=== PATIENT | male | born 1960 | race Caucasian/White ===

== ENCOUNTER 2018-04-21 15:21 | Outpatient (CLI) | payer BC, SELFPAY ==
[2018-04-21 15:41] LABS: Abs Immature Grans 0.03 k/cumm (0.0-0.09); Absolute Basophil Count 0.02 k/cumm (0.0-0.2); Absolute Eosinophil Count 0.32 k/cumm (0.0-0.7); Absolute Lymphocyte Count 1.62 k/cumm (1.2-3.4); Absolute Monocyte Count 0.58 k/cumm (0.11-0.7); Absolute Neutrophil Count 4.61 k/cumm (1.2-6.7); Basophils % 0.3; Eosinophils % 4.5; HCT 43.6 % (40.0-50.0); HGB 15.7 g/dL (13.5-17.5); Immature Grans % 0.4; Lymphocytes % 22.6; Mean Corpuscular Hemoglobin 34.3 pg (27.0-33.0); Mean Corpuscular Volume 95.2 fL (80-95); Monocytes % 8.1; Neutrophils % 64.1; Platelet Count 233 x1000/uL (130-400); RBC 4.58 m/cumm (4.50-6.00); RBC Distribution Width 13.5 % (11.8-14.1); White Blood Cell Count 7.18 k/cumm (4.4-10.8)
[2018-04-21 17:54] LABS: ALT 33 U/L (12-78); AST 19 U/L (15-37); Albumin 3.8 g/dL (3.4-5.0); Alkaline Phosphatase 110 U/L (46-116); Anion Gap 11.2 mmol/L (3-11); BUN 16 mg/dL (7-18); Bilirubin, Total 0.4 mg/dL (0.2-1.0); CO2 23.8 mmol/L (21.0-32.0); CREATININE 1.29 mg/dL (0.70-1.30); Calcium 8.6 mg/dL (8.5-10.1); Chloride 104 mmol/L (98-107); Cholesterol 167 mg/dL (50-200); Estimated GFR 57.21 (mL/min/1.73m2); Glucose 128 mg/dL (70-100); HDL Cholesterol 28 mg/dL (40-60); LDL CHOLESTEROL 116 mg/dL (<100); Sodium 139 mmol/L (136-145); Total Protein 7.1 g/dL (6.4-8.2); Triglyceride 260 mg/dL (30-150)
[2018-04-21 18:30] LABS: NT-proBNP 13 pg/mL
== END 2018-04-21 15:41 ==
PROVIDERS: PCP Family Medicine; Visit Provider Family Medicine
DX: R06.09 Other forms of dyspnea (principal); R60.9 Edema, unspecified
CPT/HCPCS: 36415; 80053; 80061; 83721; 83880; 85025

== ENCOUNTER 2018-05-12 15:30 | Outpatient (CLI) | payer BC, SELFPAY ==
--- NOTE | 2018-05-12 16:08 | DI.RAD_ITS ---
SYMPTOMS/DIAGNOSIS: COUGH CHRONIC, R05 PA AND LATERAL CHEST: There are no priors comparison exams. The heart size is normal. The aorta is mildly tortuous. The lungs appear clear. No infiltrate or effusion is seen. There is no evidence of interstitial or emphysematous changes. Fusion hardware is seen in the lower cervical spine. IMPRESSION: No acute abnormality.
== END 2018-05-12 15:50 ==
PROVIDERS: PCP Family Medicine; Visit Provider Family Medicine
DX: R05 Cough (principal)
CPT/HCPCS: 71046

== ENCOUNTER 2018-10-21 08:40 | Outpatient (REF) | payer BC, SELFPAY ==
[2018-10-21 22:27] LABS: Anion Gap 11.1 mmol/L (3-11); BUN 18 mg/dL (7-18); CO2 23.9 mmol/L (21.0-32.0); CREATININE 1.13 mg/dL (0.70-1.30); Calcium 8.5 mg/dL (8.5-10.1); Calculated LDL 98 mg/dL; Chloride 106 mmol/L (98-107); Cholesterol 150 mg/dL (50-200); Glucose 123 mg/dL (70-100); HDL Cholesterol 28 mg/dL (40-60); Potassium 4.1 mmol/L (3.5-5.1); Sodium 141 mmol/L (136-145); Triglyceride 121 mg/dL (30-150)
== END 2018-10-21 09:00 ==
LOC: NCHCN 08:40
PROVIDERS: PCP Family Medicine; Visit Provider Family Medicine
DX: R73.09 Other abnormal glucose (principal); E78.6 Lipoprotein deficiency; E78.1 Pure hyperglyceridemia; E88.81 Metabolic syndrome and other insulin resistance
CPT/HCPCS: 80048; 80061; 83721; 83036

== ENCOUNTER 2019-09-28 00:21 | Outpatient (CLI) | payer OTHER, SELFPAY ==
--- NOTE | 2019-09-28 | DI.NM_ITS ---
APPROVED REPORT Exam: Pharmacologic Patient Location: Out-Patient Room/Bed: Stress Nurse: Zina Lewis RN BMI: 34.58 Baseline Rhythm: Sinus Rhythm Comment: Abnormal R wave transition, early transition. Indications: CARD. Diastolic dysfunction. Medical History Medical History: Smoking Allergies: Atropine Cardiac Risk Factors: FHX of CAD. Pre-diabetes. Pipe smoker. Pretest Chest Pain Characteristics: Dyspnea Exercise History: Indeterminate Lung Sounds: Clear to auscultation Heart Sounds: Regular Stress Test Details Test: Pharmacologic stress testing performed using 0.4 mg of regadenoson per 5 mL given IV over 10 s econds. Nuclear Acquisition: Rest Tc-99m/Stress Tc-99m 1 day Rest Isotope: Tc-99m Sestamibi. Dose: 13.3 Date: 09/28/2019 Injection Time: 0930 Stress Isotope: Tc-99m Sestamibi. Dose: 34.1 Date: 09/28/2019 Injection Time: 1050 HR Resting HR Supine: 68 bpm Max Heart Rate (APMHR): 160 bpm Target HR (85% APMHR): 136 bpm Recovery HR: 81 bpm HR response to stress: Normal HR response to stress BP Resting BP Supine: 132/80 mmHg Max BP: 148/78 mmHg Recovery BP: 140/80 mmHg BP response to stress: Normal blood pressure response to stress. ECG Resting ECG: Sinus Rhythm Stress ECG: Sinus Rhythm ST Change: No significant ST segment changes Arrhythmia: None Recovery ECG: Sinus Rhythm Recovery ST Change: No significant ST segment changes Recovery Arrhythmia: None Clinical Stress Symptoms: No significant symptoms post Lexiscan injection. Stress ECG Conclusion 1. This is a pharmacological stress test. 2. EKG portion of this exam is nondiagnostic. Stress Test Summary STAGE HR BP Symptoms NOTES Supine 68 132/80 1 min post Lexiscan injection 91 138/82 3 min post Lexiscan injection 78 148/78 6 min post Lexiscan injection 81 140/80 MPI Conclusion Ejection fraction was 52% with stress. There were no wall motion abnormalities. There is no evidence of ischemia on the imaging portion of this exam. This represents a normal SPECT stress test. Radiologist Interpretation Radiologist agrees with Wardrobe Assistant's Interpretation. Radiologist Interpretation by: Victorino Falcon MD Interpretation Date/Time: 09/30/2019 09:38:25
[2019-09-28] MEDS: Regadenoson 0.4 MG/5 ML SYR IVP (10:48)
== END 2019-09-28 00:41 ==
PROVIDERS: PCP Family Medicine; Visit Provider Family Medicine
DX: R06.09 Other forms of dyspnea (principal); I51.9 Heart disease, unspecified; F17.290 Nicotine dependence, other tobacco product, uncomplicated; E78.1 Pure hyperglyceridemia; Z82.49 Family history of ischemic heart disease and other diseases of the circulatory system
CPT/HCPCS: 78452; 93017; J2785

== ENCOUNTER 2019-10-05 11:30 | Outpatient (CLI) | payer OTHER, SELFPAY ==
[2019-10-06 01:50] LABS: COVID-19 RT-PCR UVMMC Result Negative (Negative)
== END 2019-10-05 11:50 ==
PROVIDERS: PCP Family Medicine; Visit Provider Family Medicine
DX: Z11.59 Encounter for screening for other viral diseases (principal)
CPT/HCPCS: U0003

== ENCOUNTER 2019-10-07 02:34 | Outpatient (CLI) | payer OTHER, SELFPAY ==
--- NOTE | 2019-10-11 08:49 | W.PFT ---
Date of service: 10/07/19 Time of Service: 03:09 Pulmonary Function Test Result Interpretation Spirometry: Spirometry shows mild obstructive airways disease with significant bronchodilator response Lung Volumes: Lung volumes show no evidence of restriction Diffusion Capacity: Diffusion capacity is mildly reduced which is normal when corrected to alveolar volume Airway Pressure: Airways resistance is normal Impression Mild obstructive airways disease with significant bronchodilator response, this is associated with mild diffusion defect clinical correlation recommended Clinical Correlation therefore is recommended.
== END 2019-10-07 02:54 ==
PROVIDERS: PCP Family Medicine; Visit Provider Family Medicine
DX: R06.09 Other forms of dyspnea (principal); F17.290 Nicotine dependence, other tobacco product, uncomplicated
CPT/HCPCS: 94060; 94726; 94729

== ENCOUNTER 2019-11-10 02:58 | Outpatient (CLI) | payer OTHER, SELFPAY ==
--- NOTE | 2019-11-10 | DI.RAD_ITS ---
EXAM: XR CHEST 2V PA LATERAL CLINICAL HISTORY: ABNL PFT'SR94.2,MILD COPD,J44.9 TECHNIQUE: COMPARISON: CR XR CHEST 2V PA LATERAL from 05/12/2018 FINDINGS: There is a probable prominent epicardial fat pad on the right, no change in appearance from May 12, 2018. The lungs are clear. No pleural effusion. Cardiac size within normal limits. IMPRESSION: No evidence of acute process.
== END 2019-11-10 03:18 ==
PROVIDERS: PCP Family Medicine; Visit Provider Family Medicine
DX: R94.2 Abnormal results of pulmonary function studies (principal); J44.9 Chronic obstructive pulmonary disease, unspecified
CPT/HCPCS: 71046

== ENCOUNTER 2020-01-21 07:43 | Day surgery (SDC) | payer OTHER, SELFPAY ==
[2020-01-21 08:19] VITALS: BP 136/85; PULSE 70; RESP 20; TEMP 36.5; O2SAT 97
[2020-01-21] MEDS: Lactated Ringers 1,000 ML 80 ML IV (08:45)
--- NOTE | 2020-01-21 09:05 | PDOC.DSDIS_ITS ---
Discharge Plan Disposition Patient Disposition: HOME Condition: Good Discharge Details Reason For Visit: Colonoscopy Attending Provider: Sara Greer Primary Care Provider: Margareth Odell Home Meds and New Rx's Prescriptions: Continued vardenafil 5 mg tablet 5 mg PO PRN RF: 0 Discharge Instructions Additional Instructions: Findings: One small polyp was removed. My office will send a letter with biop sy results. Follow up: If the biopsy shows an adenomatous polyp, plan for a colonoscopy in 5 years. Please call if you develop: fevers >101.5 Nausea or Vomiting Abdominal pain that is not transient DAY SURGERY UNIT POST COLONOSCOPY INSTRUCTIONS 1. Because there will be medication in your system for the next 24 hours, you may feel a little sleepy. Your coordination will be affected. Therefore: a. Do not drive or operate dangerous equipment for 24 hours. b. Do not drink alcohol beverages for 24 hours (not even beer). c. Plan to go home and rest for the day. 2. Generally there are no restrictions on your activity after a day or so has gone by, but you may feel a bit fatigued for a few days. 3 After you arrive home you may have a light meal and return to a normal diet as you can tolerate it without feeling sick to your stomach. 4. After surgery, you may feel pain or discomfort. This should be only ritchie sient, but if it persists please contact your doctor. 5. If there are any questions regarding the findings of your procedure, please feel free to contact your doctor. 6. If you are unable to contact your doctor with a problem, contact the hospital at [phone]. 7. Continue all your regular medications unless directed otherwise. I understand the above instructions and have no questions. Signature of Patient or Responsible Adult Escort Date/Time Name of Responsible Adult Escort Signature of Nurse Date/Time Activity:: Activity as Tolerated Diet:: As Tolerated Discharge Orders Discharge Orders: Discharge Order (Routine); Ordered 01/21/20 Ordered By: Sara Greer DS: Diagnosis Discharge Diagnosis (1) Colon polyp: Status: Acute
--- NOTE | 2020-01-21 09:05 | W.COLOREPORT ---
Date of service: 01/21/20 Time of Service: 09:59 Colonoscopy Report Date of procedure: 01/21/20 Pre-op diagnosis general: Screening Post-op diagnosis procedure note: other (Colon polyp) Procedure: Colonoscopy with cold forceps polypectomy Surgeon: Sara Greer Anesthesia proc note operative: MAC Indications: This 59 year old man presents for screening colonoscopy. His prior in 2009 showed a sigmoid polyp - pathology not available. He has no symptoms or FH colon cancer. Procedure Description: The patient was placed in the left Stanford position. Propofol was titrated to sedation. Digital rectal examination revealed no abnormalities. The scope was advanced to the cecum without difficulty. The ileocecal valve and appendiceal orifice were clearly identified. The prep was good. The scope was slowly withdrawn over the course of greater than 6 minutes with no abnormalities seen in the ascending, transverse colon. In the descending colon an 8mm polyp was removed with the cold forceps. The sigmoid colon and rectum were normal including on retroflexed view. The patient tolerated the procedure well and was stable to recovery. Plan for colonoscopy in 5 years or sooner if the polyp is adenomatous.
--- NOTE | 2020-01-21 09:32 | BOWEL_PTH ---
PATIENT: Jef Pearson LOC: [facility] U#:[id number] AGE/SX: 59/M ROOM: RE01/21/[address]: Sara Greer MD : 1960 BED: DIS: 01/21/2020 SPEC #: [id number] RECD: 01/21/20 11:08 STATUS: RAO REQ #: [id number] JJ: 01/21/20 09:[address]: Sara Greer DEPT: Surgical Specimen RECD BY: Saskia Cheung ENTERED: 01/21/20 11:09 SP TYPE: Bowel OTHR DR: Margareth Odell Tissues: 1 - BIOPSY BOWEL Procedures: GROSS AND MICRO LEVEL 4 Comments: [id number]
[2020-01-21 10:19] VITALS: BP 132/92; PULSE 74; RESP 18; TEMP 36.3; O2SAT 97
== END 2020-01-21 10:40 | disposition home or self-care (01) ==
PROVIDERS: PCP Family Medicine; Visit Provider Surgery
PROC: 0DJD8ZZ Inspection of Lower Intestinal Tract, Via Natural or Artificial Opening Endoscopic (ICD-10-PCS; CPT 45378; principal; 2020-01-21 09:15)
DX: Z12.11 Encounter for screening for malignant neoplasm of colon (principal); K63.5 Polyp of colon; R73.03 Prediabetes
CPT/HCPCS: 45380; 88305; J2001

== ENCOUNTER 2020-04-27 05:04 | Outpatient (CLI) | payer OTHER, SELFPAY ==
[2020-04-27 09:02] LABS: Hemoglobin A1C 6.1 % (<5.7)
[2020-04-27 10:05] LABS: ALT 38 U/L (16-63); AST 24 U/L (15-37); Albumin 3.9 g/dL (3.4-5.0); Alkaline Phosphatase 81 U/L (46-116); Anion Gap 7.4 mmol/L (3-11); BUN 16 mg/dL (7-18); Bilirubin, Total 0.7 mg/dL (0.2-1.0); CO2 25.6 mmol/L (21.0-32.0); CREATININE 1.25 mg/dL (0.70-1.30); Calcium 8.5 mg/dL (8.5-10.1); Calculated LDL 100 mg/dL (<100); Chloride 105 mmol/L (98-107); Cholesterol 158 mg/dL (<200); Estimated GFR 58.92 (mL/min/1.73m2); Glucose 123 mg/dL (74-106); HDL Cholesterol 33 mg/dL (40-60); Potassium 4.4 mmol/L (3.5-5.1); Sodium 138 mmol/L (136-145); Triglyceride 127 mg/dL (<150)
[2020-04-27 10:15] LABS: Vitamin D 25 Total 25.7 ng/ml (30-100)
== END 2020-04-27 05:24 ==
PROVIDERS: PCP Family Medicine; Visit Provider Family Medicine
DX: E66.9 Obesity, unspecified (principal); E88.81 Metabolic syndrome and other insulin resistance; R73.03 Prediabetes; E78.1 Pure hyperglyceridemia; E78.6 Lipoprotein deficiency; Z00.00 Encounter for general adult medical examination without abnormal findings
CPT/HCPCS: 36415; 80053; 80061; 82306; 83036

== ENCOUNTER 2021-04-19 18:39 | Outpatient (REF) | payer BC, SELFPAY ==
[2021-04-19 22:21] LABS: ALT 41 U/L (16-63); AST 20 U/L (15-37); Albumin 3.8 g/dL (3.4-5.0); Alkaline Phosphatase 107 U/L (46-116); Anion Gap 8.3 mmol/L (3-11); BUN 17 mg/dL (7-18); Bilirubin, Total 0.4 mg/dL (0.2-1.0); CO2 25.7 mmol/L (21.0-32.0); CREATININE 1.3 mg/dL (0.70-1.30); Calcium 8.7 mg/dL (8.5-10.1); Calculated LDL 88 mg/dL (<100); Chloride 104 mmol/L (98-107); Cholesterol 174 mg/dL (<200); Estimated GFR 56.12 (mL/min/1.73m2); Glucose 145 mg/dL (74-106); HDL Cholesterol 31 mg/dL (40-60); Sodium 138 mmol/L (136-145); Total Protein 6.7 g/dL (6.4-8.2); Triglyceride 276 mg/dL (<150)
[2021-04-19 23:13] LABS: Vitamin D 25 Total 23.2 ng/mL (30-100)
== END 2021-04-19 18:40 | disposition home or self-care (01) ==
LOC: NCHCN 18:39
PROVIDERS: PCP Family Medicine; Visit Provider Family Medicine
DX: R73.03 Prediabetes (principal); E66.9 Obesity, unspecified; I51.9 Heart disease, unspecified; E78.6 Lipoprotein deficiency; E55.9 Vitamin D deficiency, unspecified
CPT/HCPCS: 80053; 80061; 82306; 83036

== ENCOUNTER 2022-01-08 10:02 | Outpatient (CLI) | payer BC, SELFPAY ==
--- NOTE | 2022-01-08 09:45 | DI.RAD_ITS ---
Exam(s) XR SHOULDER RT COMPLETE 2+V EXAM: XR SHOULDER RT COMPLETE 2+V CLINICAL HISTORY: shoulder pain. TECHNIQUE: 2D digital imaging was performed. COMPARISON: CR XR SHOULDER LT COMPLETE 2+V from 01/08/2022 FINDINGS: Two views: No evidence fracture or dislocation. However, there is a by 2 millimeter calcific density and soft t issues immediately above the greater tuberosity consistent with calcific rotator cuff tendinitis. Th ere is also degenerative narrowing the glenohumeral joint and opposing osteophytes on the inferior ar ticular surfaces of the humeral head and osseous glenoid. There are mild degenerative changes in the AC joint. Bone density normal. No osseous lesions. IMPRESSION: 1. Calcific rotator cuff tendinitis. 2. Moderate degenerative changes in the glenohumeral joint. Also some degenerative change in the AC joint. DATA REPOSITORY: RADIATION DOSE DELIVERED:
--- NOTE | 2022-01-08 09:45 | DI.RAD_ITS ---
Exam(s) XR SHOULDER LT COMPLETE 2+V EXAM: XR SHOULDER LT COMPLETE 2+V CLINICAL HISTORY: shoulder pain. TECHNIQUE: 2D digital imaging was performed. COMPARISON: No exams were available for comparison FINDINGS: Two views: No evidence of fracture or dislocation. No obvious to degenerative changes in the glenohumeral and A C joints. No soft tissue calcifications. Bone density normal. No osseous lesions. IMPRESSION: No significant osseous findings. DATA REPOSITORY: RADIATION DOSE DELIVERED:
== END 2022-01-08 10:03 | disposition home or self-care (01) ==
LOC: DIORS 10:03
PROVIDERS: PCP Family Medicine; Referring Provider Family Medicine; Visit Provider Student in an Organized Health Care Education/Training Program
DX: M25.511 Pain in right shoulder (principal); M25.512 Pain in left shoulder; M75.31 Calcific tendinitis of right shoulder; M19.011 Primary osteoarthritis, right shoulder
CPT/HCPCS: 73030

== ENCOUNTER 2022-02-04 01:59 | Outpatient (CLI) | payer BC, SELFPAY ==
--- NOTE | 2022-02-04 07:45 | DI.MRI_ITS ---
Exam(s) MR UPPER JOINT RT WO EXAM: MR UPPER JOINT RT WO CLINICAL HISTORY: R SHOULDER PAIN.rt rotator cuff tear, m75.101. TECHNIQUE: Multiplanar multisequence MRI was performed. COMPARISON: Plain films 08 January 2022 FINDINGS: BONES: There is no fracture or contusion pattern. JOINTS:The acromioclavicular joint is normal. The glenohumeral joint shows no effusion. There are de generative changes of glenohumeral joint. TENDONS: Supraspinatus: A minimal increased signal anteriorly in distally. Calcification near greater tuberos ity seen on plain film barely visible on MRI. Infraspinatus: Unremarkable. Subscapularis: Unremarkable. Teres Minor: Unremarkable. Biceps and Spencer: Unremarkable. MUSCLES: Unremarkable. GLENOID LABRUM: Small cysts inferior and posterior labrum. No gross labral tear. SOFT TISSUES: Unremarkable. OTHER: Subacromial and subdeltoid bursae show no fluid. . IMPRESSION: Calcific tendinosis supraspinatus. Degenerative changes of the glenohumeral joint. DATA REPOSITORY:
== END 2022-02-04 02:19 ==
LOC: DI 02:00
PROVIDERS: PCP Family Medicine; Visit Provider Student in an Organized Health Care Education/Training Program
DX: M25.511 Pain in right shoulder (principal); M75.101 Unspecified rotator cuff tear or rupture of right shoulder, not specified as traumatic; M75.31 Calcific tendinitis of right shoulder; M19.011 Primary osteoarthritis, right shoulder
CPT/HCPCS: 73221

== ENCOUNTER 2022-06-27 14:53 | Outpatient (REF) | payer BC, SELFPAY ==
[2022-06-27 15:20] LABS: Hemoglobin A1C 6.3 % (<5.7)
[2022-06-27 15:24] LABS: Anion Gap 7.6 mmol/L (3-11); BUN 17 mg/dL (7-18); CO2 26.4 mmol/L (21.0-32.0); CREATININE 1.3 mg/dL (0.70-1.30); Calcium 8.9 mg/dL (8.5-10.1); Chloride 106 mmol/L (98-107); Estimated GFR 61.73 (mL/min/1.73m2); Glucose 125 mg/dL (74-106); Potassium 4.1 mmol/L (3.5-5.1); Sodium 140 mmol/L (136-145)
== END 2022-06-27 14:54 | disposition home or self-care (01) ==
LOC: NCHCN 14:53
PROVIDERS: PCP Family Medicine; Visit Provider Nurse Practitioner Family
DX: R39.9 Unspecified symptoms and signs involving the genitourinary system (principal); R73.03 Prediabetes
CPT/HCPCS: 80048; 84153; 83036

== ENCOUNTER 2022-07-12 11:50 | Outpatient (REF) | payer BC, SELFPAY ==
[2022-07-14 13:23] LABS: PSA, Screening 3.2 ng/mL (<=4.5)
== END 2022-07-12 11:51 | disposition home or self-care (01) ==
LOC: NCHCN 11:50
PROVIDERS: PCP Family Medicine; Visit Provider Family Medicine
DX: R39.89 Other symptoms and signs involving the genitourinary system (principal); Z12.5 Encounter for screening for malignant neoplasm of prostate
CPT/HCPCS: 84153

== ENCOUNTER 2022-10-24 22:09 | Outpatient (REF) | payer BC, SELFPAY ==
[2022-10-24 22:30] LABS: Magnesium 2.1 mg/dL (1.8-2.4)
[2022-10-24 22:43] LABS: Bilirubin Negative (Negative); Blood Large (Negative); Clarity Cloudy (Clear); Glucose Negative (Negative); Ketones Negative (Negative); Leukocyte Esterase Small (Negative); Nitrite Negative (Negative); Urobilinogen 0.2 mg/dL (Up to 0.2)
[2022-10-24 23:10] LABS: Bacteria Moderate HPF (Negative); C & S Indicated? Yes; Casts Negative LPF (Negative); Crystals Negative HPF (Negative); Epithelial Cells Few HPF (Negative); Mucus Negative (Negative); RBC >50 HPF (0-2)
== END 2022-10-24 22:10 | disposition home or self-care (01) ==
LOC: NCHCN 22:09
PROVIDERS: PCP Family Medicine; Visit Provider Family Medicine
DX: C67.9 Malignant neoplasm of bladder, unspecified (principal); R35.1 Nocturia
CPT/HCPCS: 81003; 81015; 83735; 87086

== ENCOUNTER 2022-11-27 14:31 | Emergency (ER) | payer BC, SELFPAY ==
--- NOTE | 2022-11-27 14:45 | RT.EKG_ITS ---
APPROVED REPORT Exam: Resting ECG Reason for Exam: dyspnea on exertion Patient Location: E HR:86 bpm ECG Measurements Heart Rate 86 AXIS AR 185 P 47 QRSd 92 QRS -26 QT 365 T 40 QTc 436 Conclusion Sinus rhythm...normal P axis, V-rate 60- 99
[2022-11-27 14:49] VITALS: BP 154/84; PULSE 99; RESP 23; TEMP 37.3; O2SAT 97
--- NOTE | 2022-11-27 15:30 | DI.RAD_ITS ---
Exam(s) XR CHEST 2V PA LATERAL EXAM: XR CHEST 2V PA LATERAL CLINICAL HISTORY: sob; chemo for bladder ca. TECHNIQUE: 2D digital imaging was performed. COMPARISON: CR XR CHEST 2V PA LATERAL from 11/10/2019 FINDINGS: 2 views: The right-sided Port-A-Cath is in suboptimal position within the internal jugular vein in the right-s lisa of the neck and beyond the field of view of this chest study. This requires revision. Fusion plate C7-T1 again noted. Heart size is normal. The mediastinum is not widened. Lungs are clear. No infiltrates nor pleural effusions. IMPRESSION: No acute pulmonary findings. Right Port-A-Cath suboptimal position. DATA REPOSITORY: RADIATION DOSE DELIVERED:
--- NOTE | 2022-11-27 15:32 | ED.GENADUL_ITS ---
Discharge Plan Disposition Patient Disposition: Home Discharge Details Clinical Impression: Shortness of breath Primary Care Provider: Margareth Odell ED Provider: Zain Chapin Home Meds and New Rx's Prescriptions: New doxycycline hyclate 100 mg capsule 100 mg PO BID 10 Days Qty: 20 0RF No Action albuterol sulfate [Ventolin HFA] 90 mcg/actuation HFA aerosol inhaler 2 puff inhalation Q4H PRN (Reason: Shortness Of Breath) sildenafil 100 mg tablet 50 mg PO ONCE PRN Rx Instructions: administer 30 minutes to 4 hours before activity ondansetron HCl 8 mg tablet 8 mg PO Q8H PRN (Reason: Nausea) Patient Comments: TAKE ONE TABLET BY MOUTH EVERY 8 HOURS NEEDED FOR NAUSEA prochlorperazine maleate 10 mg tablet 10 mg PO Q6H PRN (Reason: Nausea) Patient Comments: TAKE ONE TABLET BY MOUTH EVERY 6 HOURS NEEDED FOR NAUSEA Discharge Instructions Instructions: Dyspnea (ED) Additional Instructions: Your right-sided Port-A-Cath snakes into the internal jugular vein as opposed to coursing to the heart through the superior vena cava. Please discuss having your Port-A-Cath replaced with your oncology team this will likely need to be performed by interventional radiology at [facility]. Take antibiotics as prescribed. Please return to the emergency department for any worsening symptoms Medical Decision Making 62-year-old male active bladder cancer currently undergoing chemotherapy presents with generalized fatigue and shortness of breath worse with exertion, no chest pain, no fevers no chills, no cough, afebrile nontoxic no respiratory distress lungs clear bilaterally, mild edema to bilateral ankles, must consider reaction to chemotherapy versus dehydration versus pneumonia versus viral syndrome versus less likely ACS or PE given history and physical. Will obtain screening labs chest x-ray light fluids close reassessment of symptoms 16: 34 lab called to relay that patient's neutrophils appear to have inclusion bodies within them concerning for possible anaplasmosis. We will add tick panel as well as blood cultures. We will start empiric doxycycline. Awaiting chest x-ray results for disposition. Patient to follow-up with his primary team and oncologist on Friday 17: 55 x-ray clear from an infectious standpoint however Port-A-Cath noted to sneak into internal jugular as opposed to down towards the heart. No sign of extravasation on physical examination, but patient has had some difficulty with his infusions and blood draws over the past week. Patient will need to follow- up with IR team at [facility] for replacement of Port-A-Cath. Patient will be in contact with his primary oncology team. We will continue with doxycycline for 10 days. HPI General Date/Time Provider Initiated Documentation: 11/27/22 14:57 . HPI Narrative: 62-year-old male active bladder cancer currently undergoing chemotherapy, last chemotherapy session approximately 1-1/2 weeks ago, presents with fatigue and shortness of breath worse with exertion. Denies recent travel recent hospitalization leg pain or swelling. Denies fevers or chills Related Data Home Medications Medication Instructions Recorded Confirmed albuterol sulfate 90 mcg/actuation 2 puff inhalation Q4H PRN 12/11/21 11/27/22 aerosol inhaler (Ventolin HFA) Shortness Of Breath sildenafil 100 mg tablet 50 mg PO ONCE PRN 12/11/21 11/27/22 doxycycline hyclate 100 mg capsule 100 mg PO BID 10 days #20 caps 11/27/22 ondansetron HCl 8 mg tablet 8 mg PO Q8H PRN Nausea 11/27/22 11/27/22 prochlorperazine maleate 10 mg 10 mg PO Q6H PRN Nausea 11/27/22 11/27/22 tablet Previous Rx's Medication Instructions Recorded doxycycline hyclate 100 mg capsule 100 mg PO BID 10 days #20 caps 11/27/22 Allergies Allergy/AdvReac Type Severity Reaction Status Date / Time atropine sulfate Allergy Severe noted in Uncoded 11/27/22 14:51 referral, no reaction noted by referring office General Stated Complaint: RespSymp RICCO: 3 Review of Systems Narrative: Review of Systems Constitutional: Fatigue Eyes: negative ENT: negative Cardiovascular: negative Respiratory: Shortness of breath Gastrointestinal: negative : negative Musculoskeletal: negative Skin: negative Neurologic: negative Psych: negative PFSH All Active Problems (Updated 01/21/20 @ 08:17 by Mike Pace) Shortness of breath (Acute) Arthritis of right glenohumeral joint (Acute) Biceps tendinitis of right upper extremity (Acute) Right rotator cuff tear (Acute) Left rotator cuff tear (Acute) Tubular adenoma of colon (Acute) Colon polyp (Acute) Tibia/fibula fracture (Acute) Open FX on Left. Medical History (Updated 11/27/22 @ 17:58 by Zain Chapin MD) Chronic cough Dyspnea on exertion Erectile dysfunction GERD (gastroesophageal reflux disease) Hyperplastic colon polyp Hypertriglyceridemia Low serum HDL Metabolic syndrome Nicotine addiction Pre-diabetes Vision changes Surgical History (Updated 01/21/20 @ 08:17 by Mike Pace) History of ankle surgery Denies having ankle surgery. History of appendectomy History of colonoscopy History of fusion of cervical spine History of knee surgery Social History (Updated 01/07/20 @ 08:42 by MILAGROS Flannery) Smoking/Tobacco Use Status: Current every day Tobacco Type: pipe Smoking risk assessment performed?: Yes Alcohol Intake: current Alcohol Intake frequency: a few times a week Alcohol type: beer and hard liquor Substance use type: does not use Housing: house Current gender identity: male Exam Narrative Exam Narrative: Physical Examination General: alert, awake, cooperative, resting comfortably, no acute distress HEENT: normocephalic, atraumatic; PERRL, EOM intact, conjunctiva normal; no nasal discharge; moist mucous membranes, oral and pharyngeal mucosa normal, t olerating secretions Neck: supple, trachea midline; full ROM Chest: normal to inspection; Chemo-Port right chest wall Respiratory: normal respiratory effort, speaking in full sentences, clear to au scultation, no wheezing, rales or rhonchi Cardiac: regular rate, regular rhythm, S1S2 intact, no murmurs rubs or gallops GI: abdomen soft, non-tender, non-distended; no palpable mass or hepatospleno megaly Skin: no lesions, rashes or trauma appreciated Neuro: AAOx3, normal speech, moving all extremities Extremities: Mild bilateral ankle edema Psych: Appropriate mood and affect Course Vital Signs Vital signs: Vital Signs Temperature 37.3 C 11/27/22 14:49 Pulse 99 H 11/27/22 14:49 Respiratory Rate 11/27/22 14:49 Blood Pressure 154/84 H 11/27/22 14:49 Pulse Oximetry 97 11/27/22 14:49 Temperature 37.3 C 11/27/22 14:49 Temperature Source Oral 11/27/22 14:49 Pulse 99 H 11/27/22 14:49 Respiratory Rate 23 11/27/22 14:49 Blood Pressure 154/84 H 11/27/22 14:49 Blood Pressure Position Sitting 11/27/22 14:49 Pulse Oximetry 97 11/27/22 14:49 Oxygen Delivery Method Room Air 11/27/22 14:49 Oxygen Flow Rate 0 11/27/22 14:49 Pain Level 0 11/27/22 14:49
[2022-11-27 15:49] LABS: Absolute Eosinophil Count 0.16 10^3/uL (0.0-0.7); HCT 36.8 % (40.0-50.0); HGB 13.2 g/dL (13.5-17.5); MCH 32.9 pg (27.0-33.0); MCHC 35.9 % (32.0-36.0); MCV 92 fL (80-95); MPV 9.6 fL (8.0-11.0); Platelet Count 157 10^3/uL (130-400); RBC 4.01 10^6/uL (4.36-5.78); RDW 14.2 % (11.8-14.1); RDW-SD 48.4 fL; WBC 4.02 10^3/uL (4.4-10.8)
[2022-11-27] MEDS: Normal Saline 500 ML 1000 ML IV (15:49)
[2022-11-27 16:09] LABS: PTT Activated 23.6 sec (21.5-31.9); Prothrombin Time 9.7 sec (9.3-11.0)
[2022-11-27 16:13] LABS: ALT 30 U/L (16-63); AST 12 U/L (15-37); Albumin 3.6 g/dL (3.4-5.0); Alkaline Phosphatase 87 U/L (46-116); Anion Gap 9.4 mmol/L (3-11); BUN 14 mg/dL (7-18); Bilirubin, Total 0.5 mg/dL (0.2-1.0); CO2 24.6 mmol/L (21.0-32.0); CREATININE 1.1 mg/dL (0.70-1.30); Calcium 8.6 mg/dL (8.5-10.1); Chloride 100 mmol/L (98-107); Estimated GFR 75.43 (mL/min/1.73m2); Glucose 135 mg/dL (74-106); Magnesium 1.5 mg/dL (1.8-2.4); NT-proBNP 35 pg/mL (<300); Potassium 3.6 mmol/L (3.5-5.1); Sodium 134 mmol/L (136-145); TSH (W/Ref FT4) 1.17 uIU/mL (0.36-3.74); Total Protein 6.8 g/dL (6.4-8.2); Troponin I < 50 ng/L (<or=60)
[2022-11-27 16:26] LABS: Absolute Lymphocyte Count 1.29 10^3/uL (1.2-3.4); Absolute Monocyte Count 0.24 10^3/uL (0.1-0.8); Absolute Neutrophil Count 2.29 10^3/uL (1.2-6.7); Atypical Lymphocytes % 5; Bands % 4; Diff Comment Manual Differential; Metamyelocytes % 1; RBC Morphology Normal
[2022-11-27] MEDS: Doxycycline Hyclate 100 MG CAP PO (16:53)
[2022-11-27] MEDS: Heparin 500 UNITS/5 ML SYRINGE (18:05)
[2022-11-27 18:14] VITALS: BP 149/87; PULSE 87; TEMP 36.8; O2SAT 97
[2022-11-27 19:11] LABS: Troponin I < 50 ng/L (<or=60)
[2022-11-29 11:04] LABS: Lyme Ab w Rflx to Lyme Confirm Negative (Negative)
[2022-11-30 17:09] LABS: Anaplasma phagocytophilum Negative (Negative); B. miyamotoi PCR Negative (Negative); Babesia divergens/MO-1 Negative (Negative); Babesia duncani Negative (Negative); Babesia microti Negative (Negative); Ehrlichia chaffeensis Negative (Negative); Ehrlichia ewingii/canis Negative (Negative); Ehrlichia muris eauclairensis Negative (Negative)
== END 2022-11-27 18:16 | disposition home or self-care (01) ==
PROVIDERS: Emergency Medicine; Emergency Provider Emergency Medicine; PCP Family Medicine
DX: R06.02 Shortness of breath (principal); C67.9 Malignant neoplasm of bladder, unspecified; Z92.21 Personal history of antineoplastic chemotherapy
CPT/HCPCS: 36410; 36415; 80053; 87040; 87798; 93005; 96360; 99284; 71046; 83735; 83880; 84443; 84484; 85025; 85610; 85730; 86618; 93010; 99283

== ENCOUNTER 2022-12-03 02:34 | Outpatient (RCR) | payer BC, SELFPAY ==
[2022-11-19] MEDS: Normal Saline Flush 10 ML SYR IVP (13:02)
[2022-11-19 13:14] LABS: Abs Immature Grans 0.04 10^3/uL (0.0-0.06); Absolute Basophil Count 0.04 10^3/uL (0.0-0.2); Absolute Eosinophil Count 0.36 10^3/uL (0.0-0.7); Absolute Lymphocyte Count 1.13 10^3/uL (1.2-3.4); Absolute Monocyte Count 0.57 10^3/uL (0.1-0.8); Basophils % 0.5; Eosinophils % 4.7; HCT 40.2 % (40.0-50.0); HGB 14.3 g/dL (13.5-17.5); Immature Grans % 0.5; Lymphocytes % 14.8; MCH 33.3 pg (27.0-33.0); MCHC 35.6 % (32.0-36.0); MCV 94 fL (80-95); MPV 9.3 fL (8.0-11.0); Monocytes % 7.5; Platelet Count 260 10^3/uL (130-400); RDW-SD 51.6 fL; WBC 7.64 10^3/uL (4.4-10.8)
[2022-11-19 13:35] LABS: ALT 26 U/L (16-63); AST 20 U/L (15-37); Albumin 3.7 g/dL (3.4-5.0); Alkaline Phosphatase 94 U/L (46-116); Anion Gap 10.9 mmol/L (3-11); BUN 15 mg/dL (7-18); Bilirubin, Total 0.4 mg/dL (0.2-1.0); CO2 24.1 mmol/L (21.0-32.0); CREATININE 1.1 mg/dL (0.70-1.30); Calcium 8.6 mg/dL (8.5-10.1); Chloride 104 mmol/L (98-107); Estimated GFR 75.43 (mL/min/1.73m2); Glucose 134 mg/dL (74-106); Magnesium 1.9 mg/dL (1.8-2.4); Potassium 4.3 mmol/L (3.5-5.1); Sodium 139 mmol/L (136-145); Total Protein 7.1 g/dL (6.4-8.2)
== END 2022-12-05 23:59 | disposition home or self-care (01) ==
LOC: INF 02:34
PROVIDERS: PCP Family Medicine; Visit Provider Internal Medicine
DX: C67.9 Malignant neoplasm of bladder, unspecified (principal); Z45.2 Encounter for adjustment and management of vascular access device
CPT/HCPCS: 36415; 36591; 80053; 83735; 85025

== ENCOUNTER 2022-12-31 01:34 | Outpatient (RCR) | payer BC, SELFPAY ==
[2022-12-17] MEDS: Normal Saline Flush 10 ML SYR IVP (12:39)
[2022-12-17 12:56] LABS: Abs Immature Grans 1.98 10^3/uL (0.0-0.06); HCT 35.6 % (40.0-50.0); HGB 12.5 g/dL (13.5-17.5); MCH 33.1 pg (27.0-33.0); MCHC 35.1 % (32.0-36.0); MCV 94 fL (80-95); MPV 9.5 fL (8.0-11.0); RBC 3.78 10^6/uL (4.36-5.78); RDW 15.1 % (11.8-14.1); RDW-SD 51.9 fL; WBC 11.42 10^3/uL (4.4-10.8)
[2022-12-17 13:26] LABS: ALT 29 U/L (16-63); AST 17 U/L (15-37); Albumin 3.6 g/dL (3.4-5.0); Alkaline Phosphatase 115 U/L (46-116); Anion Gap 9.3 mmol/L (3-11); BUN 7 mg/dL (7-18); Bilirubin, Total 0.2 mg/dL (0.2-1.0); CO2 25.7 mmol/L (21.0-32.0); CREATININE 1.1 mg/dL (0.70-1.30); Calcium 8.7 mg/dL (8.5-10.1); Chloride 101 mmol/L (98-107); Estimated GFR 75.43 (mL/min/1.73m2); Glucose 129 mg/dL (74-106); Potassium 3.9 mmol/L (3.5-5.1); Sodium 136 mmol/L (136-145); Total Protein 7.2 g/dL (6.4-8.2)
[2022-12-17 13:51] LABS: Absolute Neutrophil Count 6.85 10^3/uL (1.2-6.7); Bands % 3; Platelet Count 229 10^3/uL (130-400)
[2022-12-17 13:52] LABS: Absolute Basophil Count 0.11 10^3/uL (0.0-0.2); Absolute Eosinophil Count 0.34 10^3/uL (0.0-0.7); Absolute Lymphocyte Count 1.94 10^3/uL (1.2-3.4); Absolute Monocyte Count 1.14 10^3/uL (0.1-0.8); Diff Comment Manual Differential; Metamyelocytes % 5; Myelocytes % 4; Polychromasia Present
[2022-12-31] MEDS: Normal Saline Flush 10 ML SYR IVP (07:49)
[2022-12-31 08:05] LABS: HCT 30.7 % (40.0-50.0); HGB 10.6 g/dL (13.5-17.5); MCHC 34.5 % (32.0-36.0); MCV 96 fL (80-95); MPV 9.9 fL (8.0-11.0); Platelet Count 163 10^3/uL (130-400); RBC 3.21 10^6/uL (4.36-5.78); RDW 15.9 % (11.8-14.1); RDW-SD 53.7 fL; WBC 7.24 10^3/uL (4.4-10.8)
[2022-12-31 08:25] LABS: ALT 31 U/L (16-63); AST 13 U/L (15-37); Albumin 3.3 g/dL (3.4-5.0); Alkaline Phosphatase 116 U/L (46-116); Anion Gap 8.4 mmol/L (3-11); BUN 11 mg/dL (7-18); Bilirubin, Total 0.2 mg/dL (0.2-1.0); CO2 24.6 mmol/L (21.0-32.0); CREATININE 1.1 mg/dL (0.70-1.30); Calcium 8.8 mg/dL (8.5-10.1); Chloride 105 mmol/L (98-107); Estimated GFR 75.43 (mL/min/1.73m2); Glucose 132 mg/dL (74-106); Magnesium 1.7 mg/dL (1.8-2.4); Sodium 138 mmol/L (136-145); Total Protein 6.5 g/dL (6.4-8.2)
[2022-12-31 08:30] LABS: Absolute Basophil Count 0.07 10^3/uL (0.0-0.2); Absolute Monocyte Count 0.72 10^3/uL (0.1-0.8); Absolute Neutrophil Count 4.63 10^3/uL (1.2-6.7); Atypical Lymphocytes % 1; Bands % 2
[2022-12-31 08:31] LABS: Diff Comment Manual Differential; Metamyelocytes % 3; Myelocytes % 4; Polychromasia Present
== END 2023-01-04 23:59 | disposition home or self-care (01) ==
LOC: INF 01:34
PROVIDERS: PCP Family Medicine; Visit Provider Internal Medicine
DX: C67.9 Malignant neoplasm of bladder, unspecified (principal); Z45.2 Encounter for adjustment and management of vascular access device
CPT/HCPCS: 36591; 80053; 83735; 85025

== ENCOUNTER 2023-01-21 12:25 | Emergency (ER) | payer BC, SELFPAY ==
[2023-01-21 12:29] VITALS: BP 173/96; PULSE 86; RESP 16; TEMP 36.6; O2SAT 98
--- NOTE | 2023-01-21 13:00 | DI.CT_ITS ---
Exam(s) CT CHEST PE CTA EXAM: CT CHEST PE CTA CLINICAL HISTORY: dyspnea. TECHNIQUE: Imaging Protocol: CT angiography of the chest was performed using pulmonary embolus yaa col. Multi planar reconstructions were performed. CONTRAST MATERIAL: Intravenous: Omnipaque 350 Contrast volume: 100 cc COMPARISON: CT CT CHEST LUNG CANCER SCREEN from 09/21/2021 FINDINGS: CHEST: PULMONARY ARTERIES: There are no intraluminal filling defects to suggest acute pulmonary emboli. LUNGS: There are no infiltrates nor evidence of pulmonary infarction.. There are no pleural effusions . The described small 4-5 mm subpleural nodule in the lateral basal segment of the left lower lobe r emains unchanged. New lung nodules noted MEDIASTINUM: There is no hilar nor mediastinal adenopathy. Thyroid nodules again noted. Largest appe ars to be partially calcified in the right lobe. CARDIAC: Heart size is normal. No pericardial effusion. Thoracic aorta appears unremarkable. Leslie l size and no evidence of dissectionno obvious coronary artery calcification. There is no significa nt shift of the interventricular septum. PARTIALLY VISUALIZED UPPERMOST ABDOMEN: No adrenal masses. Gallbladder surgically absent OSSEOUS: No significant osseous lesions.No fractures. Incidentally noted is a in anterior fusion tay te in the lower cervical spine. There is a right jugular central line with its distal tip at the SVC RA junction.. IMPRESSION: 1. No evidence of acute pulmonary emboli. No evidence of pulmonary infarction.No pleural effusions. 2. No intrathoracic adenopathy. 3. Right jugular central line with distal tip at SVC-RA junction. Called to ER. RADIATION DOSE DELIVERED: Total DLP DATA REPOSITORY: All CT scans at this facility are submitted to the National Radiology Data Registry (NRDR) Dose Index Registry (DIR) with the [employer] ([employer]). RADIATION OPTIMIZATION: All CT scans at this facility use at least one of these dose optimization te chniques: automated exposure control; mA and/or kV adjustment per patient size (includes targeted exa ms where dose is matched to clinical indication); or iterative reconstruction.
--- NOTE | 2023-01-21 13:15 | RT.EKG_ITS ---
APPROVED REPORT Exam: Resting ECG Reason for Exam: dyspnea Patient Location: E HR:70 bpm ECG Measurements Heart Rate 70 AXIS SD 196 P 32 QRSd 93 QRS -24 QT 386 T 21 QTc 417 Conclusion Sinus rhythm...normal P axis, V-rate 60- 99 Normal sinus rhythym. No change from prior 11/27/22. WD
--- NOTE | 2023-01-21 13:16 | ED.GENADUL_ITS ---
Discharge Plan Disposition Patient Disposition: Home Condition: Stable Discharge Details Clinical Impression: Dyspnea Primary Care Provider: Margareth Odell ED Provider: Sara Salgado Home Meds and New Rx's Prescriptions: No Action albuterol sulfate [Ventolin HFA] 90 mcg/actuation HFA aerosol inhaler 2 puff inhalation Q4H PRN (Reason: Shortness Of Breath) sildenafil 100 mg tablet 50 mg PO ONCE PRN Rx Instructions: administer 30 minutes to 4 hours before activity ondansetron HCl 8 mg tablet 8 mg PO Q8H PRN (Reason: Nausea) Patient Comments: TAKE ONE TABLET BY MOUTH EVERY 8 HOURS NEEDED FOR NAUSEA prochlorperazine maleate 10 mg tablet 10 mg PO Q6H PRN (Reason: Nausea) Patient Comments: TAKE ONE TABLET BY MOUTH EVERY 6 HOURS NEEDED FOR NAUSEA oxycodone 5 mg tablet 5 mg PO Q4H PRN (Reason: pain) Patient Comments: TAKE ONE TABLET BY MOUTH EVERY 4 HOURS NEEDED tadalafil [Cialis] 5 mg tablet 5 mg PO DAILY PRN tiotropium bromide 18 mcg capsule, w/inhalation device 1 cap INHALATION DAILY Patient Comments: Inhale 1 capsule by mouth once a day inhale contents of one capsule once a day naproxen 250 mg tablet 250 mg PO BID PRN Discharge Instructions Instructions: Dyspnea (ED) Additional Instructions: Please follow-up with your oncologist and/or primary care. You may benefit from outpatient echocardiogram and/or stress test. Referrals: Margareth Odell [Primary Care Provider] - Discharge Data Discharge Physician: Sara Salgado Medical Decision Making 62-year-old male with history of COPD and prostate cancer on chemotherapy presents for evaluation of gradually worsening dyspnea on exertion. EKG unremarkable. Laboratory studies show mildly elevated D-dimer otherwise unremarkable. Lung sounds are clear. CT of chest with contrast was obtained and negative for PE. Troponin flat. I did discuss results with patient who is eager for discharge. Unclear etiology of symptoms however they have been ongoing for 2 months without any significant worsening and started right after c hemotherapy. I discussed that he may benefit from repeat echocardiogram/stress test. He will contact his oncologist to determine if they want the studies done. He will keep his follow-up next week with oncology and will return with any worsening symptoms. ECG Data Interpretation: 12 lead EKG performed at 13: 28 Indication: Dyspnea Rhythm: Normal sinus rhythm Rate: [address]:Normal Intervals: Normal QRS: Normal ST segments: Normal T Waves: Normal INTERPRETATION: Normal sinus rhythm Comparison to old EK11/27/2022 no significant changes The 12 lead EKG was interpreted by myself HPI General Date/Time Provider Initiated Documentation: 01/21/23 12:50 . HPI Narrative: 62-year-old male with history of prostate cancer on chemotherapy presents for evaluation of ongoing dyspnea. Patient states that he began having some shortness of breath after starting chemotherapy. Over the last 2 months it has gradually gotten a little bit worse. He states that he becomes short of breath with minimal exertion. Denies any fevers or chills. No cough or cold. He does have a history of COPD. He uses albuterol inhalers on a as needed. He was started on Spiriva 3 weeks ago and states that that has not helped. He was seen here for similar symptoms in November. At that time he was started on doxycycline. He states that one of his other providers discontinued it as that was not helping. He has chronic lower extremity edema. He denies any history of CHF. He is not on any diuretics. Denies any history of blood clots. He is not on any blood thinners. He states that he had a stress test/echocardiogram 3 years ago which was reportedly unremarkable. He also has some increased shortness of breath if he leans over and puts pressure on his abdomen. Denies any abdominal pain. No nausea or vomiting. Related Data Home Medications Medication Instructions Recorded Confirmed albuterol sulfate 90 mcg/actuation 2 puff inhalation Q4H PRN 12/11/21 01/21/23 aerosol inhaler (Ventolin HFA) Shortness Of Breath sildenafil 100 mg tablet 50 mg PO ONCE PRN 12/11/21 01/21/23 ondansetron HCl 8 mg tablet 8 mg PO Q8H PRN Nausea 11/27/22 01/21/23 prochlorperazine maleate 10 mg 10 mg PO Q6H PRN Nausea 11/27/22 01/21/23 tablet naproxen 250 mg tablet 250 mg PO BID PRN 01/21/23 01/21/23 oxycodone 5 mg tablet 5 mg PO Q4H PRN pain 01/21/23 01/21/23 tadalafil 5 mg tablet (Cialis) 5 mg PO DAILY PRN 01/21/23 01/21/23 tiotropium bromide 18 mcg capsule 1 cap inhalation DAILY 01/21/23 01/21/23 with inhalation device Allergies Allergy/AdvReac Type Severity Reaction Status Date / Time atropine sulfate Allergy Severe noted in Uncoded 11/27/22 14:51 referral, no reaction noted by referring office General Stated Complaint: SOB RICCO: 3 Review of Systems Narrative: Remainder of review of systems otherwise negative except as in the HPI x10. PFSH All Active Problems Dyspnea (Acute) Arthritis of right glenohumeral joint (Acute) Biceps tendinitis of right upper extremity (Acute) Right rotator cuff tear (Acute) Left rotator cuff tear (Acute) Tubular adenoma of colon (Acute) Colon polyp (Acute) Tibia/fibula fracture (Acute) Open FX on Left. Medical History Dyspnea on exertion Erectile dysfunction Hyperplastic colon polyp GERD (gastroesophageal reflux disease) Chronic cough Nicotine addiction Pre-diabetes Low serum HDL Hypertriglyceridemia Metabolic syndrome Vision changes Surgical History History of appendectomy History of colonoscopy History of ankle surgery Denies having ankle surgery. History of knee surgery History of fusion of cervical spine Social History Smoking/Tobacco Use Status: Current every day Tobacco Type: pipe Smoking risk assessment performed?: Yes Alcohol Intake: current Alcohol Intake frequency: a few times a week Alcohol type: beer and hard liquor Substance use type: does not use Housing: house Current gender identity: male Exam Narrative Exam Narrative: General: non-toxic, no respiratory distress, comfortable HEENT: normocephalic, atraumatic, lids and lashes normal, PERRL, EOMI, anicteric sclera, no conjunctival injection, moist oral mucosa Card: regular rate and rhythm, S1S2, no murmurs, rubs, or gallops Lungs: good air entry, clear to auscultation bilaterally. no wheezes, rales, rhonchi, or retractions Abd: soft, non-tender, non-distended, normal bowel sounds, no rebound or guarding, no peritoneal signs Musculoskeletal: full range of motion of arms and legs, no tenderness to palpation. no clubbing or cyanosis, mild bilateral lower extremity edema Neurologic: appropriate for age, strength normal Psych: alert and oriented Skin: no petechiae, no lesions, warm and dry Course Vital Signs Vital signs: Vital Signs Temperature 36.6 C 01/21/23 12:29 Pulse 86 01/21/23 12:29 Respiratory Rate 16 01/21/23 12:29 Blood Pressure 173/96 H 01/21/23 12:29 Pulse Oximetry 98 01/21/23 12:29 Temperature 36.6 C 01/21/23 12:29 Temperature Source Tympanic 01/21/23 12:29 Pulse 86 01/21/23 12:29 Respiratory Rate 16 01/21/23 12:29 Blood Pressure 173/96 H 01/21/23 12:29 Blood Pressure Position Sitting 01/21/23 12:29 Pulse Oximetry 98 01/21/23 12:29 Oxygen Delivery Method Room Air 01/21/23 12:29 Oxygen Flow Rate 0 01/21/23 12:29 Pain Level 0 01/21/23 12:29
[2023-01-21 13:27] VITALS: RESP 18
[2023-01-21 13:33] LABS: Abs Immature Grans 0.03 10^3/uL (0.0-0.06); Absolute Basophil Count 0.06 10^3/uL (0.0-0.2); Absolute Eosinophil Count 0.35 10^3/uL (0.0-0.7); Absolute Lymphocyte Count 1.21 10^3/uL (1.2-3.4); Absolute Neutrophil Count 4.03 10^3/uL (1.2-6.7); Basophils % 0.9; Eosinophils % 5.5; HCT 35.3 % (40.0-50.0); HGB 12.5 g/dL (13.5-17.5); Immature Grans % 0.5; MCH 34.4 pg (27.0-33.0); MCHC 35.4 % (32.0-36.0); MCV 97 fL (80-95); Neutrophils % 63.1; Platelet Count 186 10^3/uL (130-400); RBC 3.63 10^6/uL (4.36-5.78); RDW 15.9 % (11.8-14.1); RDW-SD 56.4 fL; WBC 6.38 10^3/uL (4.4-10.8)
[2023-01-21 13:49] LABS: ALT 24 U/L (16-63); AST 15 U/L (15-37); Albumin 3.7 g/dL (3.4-5.0); Alkaline Phosphatase 94 U/L (46-116); Anion Gap 6.5 mmol/L (3-11); BUN 16 mg/dL (7-18); Bilirubin, Total 0.4 mg/dL (0.2-1.0); CO2 26.5 mmol/L (21.0-32.0); CREATININE 1.2 mg/dL (0.70-1.30); Calcium 9.2 mg/dL (8.5-10.1); Chloride 104 mmol/L (98-107); Estimated GFR 67.95 (mL/min/1.73m2); Glucose 118 mg/dL (74-106); Magnesium 1.9 mg/dL (1.8-2.4); Sodium 137 mmol/L (136-145)
[2023-01-21 13:52] LABS: Troponin I < 50 ng/L (<or=60)
[2023-01-21] MEDS: Omnipaque 350 MG/ML 100 ML BTL IJ (14:20)
[2023-01-21] MEDS: Normal Saline - Diluent 50 ML VIAL IJ (14:23)
[2023-01-21 14:29] LABS: NT-proBNP 32 pg/mL (<300)
[2023-01-21 14:38] LABS: D-Dimer 663 ng/mlFEU (<500)
[2023-01-21 15:59] VITALS: BP 138/72; PULSE 82; RESP 16; O2SAT 98
[2023-01-21] MEDS: Heparin 500 UNITS/5 ML SYRINGE (16:05)
== END 2023-01-21 15:57 | disposition home or self-care (01) ==
PROVIDERS: Emergency Provider Emergency Medicine Emergency Medical Services; PCP Family Medicine
DX: R06.00 Dyspnea, unspecified (principal)
CPT/HCPCS: 71275; 80053; 93005; 99283; 83735; 83880; 84484; 85025; 85379; 93010; J3490

== ENCOUNTER → 2023-01-27 01:41 | Outpatient (CLI) | payer BC, SELFPAY ==
--- NOTE | 2023-01-27 13:07 | DI.US_ITS ---
APPROVED REPORT EXAM: Comprehensive 2D, Doppler, and color-flow Echocardiogram Patient Location: Out-Patient Sign Language Translator: Javier Myers RDCS (AE) Indications: Bladder cancer, dyspnea Other Information Study Quality: Good. Technically limited study due to body habitus. Conclusion Borderline concentric left ventricular hypertrophy. Ejection fraction is 60%. Wall motion is normal Normal right ventricular size and systolic function Both atria are normal in size There is no structural or hemodynamically significant valvular disease Mildly dilated ascending aorta measuring 3.64 cm Wall motion Left Ventricle The left ventricle is normal size. The left ventricular systolic function is normal. The left ventric ular ejection fraction is within the normal range. Borderline concentric left ventricular hypertrophy . There is normal LV segmental wall motion. There is no ventricular septal defect visualized. LVEF is 60%. Right Ventricle The right ventricle is normal size. The right ventricular systolic function is normal. Unable to asse ss PA pressure. Atria The left atrium size is normal. The right atrium size is normal. The interatrial septum is intact wit h no evidence for an atrial septal defect. Aortic Valve The aortic valve is normal in structure. Aortic valve is trileaflet. There is no aortic valvular sten osis. No aortic regurgitation is present. Mitral Valve The mitral valve is normal in structure. No evidence of mitral valve stenosis. Mild mitral regurgitat ion. Tricuspid Valve The tricuspid valve is normal in structure. There is no tricuspid valve stenosis. Trace tricuspid reg urgitation. Pulmonic Valve The pulmonary valve is normal in structure. There is no pulmonic valvular stenosis. Mild to moderate pulmonic regurgitation. Great Vessels The aortic root is normal in size. The ascending aorta is mildly dilated. Aortic arch is not well vis ualized. IVC is normal in size and collapses >50% with inspiration. Pericardium Trace pericardial effusion. 2D Dimensions IVSD d PLAX 1.02 cm M: 0.6-1.2 Ao Root d 2.84 cm M: 3.1 - 3.7 LVPW d PLAX 1.04 cm M: 0.6 - 1.2 Ao Asc Diam d 3.64 cm M: 2.6 - 3.4 LVID d PLAX 4.69 cm M: 4.2 - 5.8 LVDs 2.16 cm M: 2.5 - 4.0 LV EF Teichholz 84.8 % FS 53.88 % LV EDV (Teich) 102.0 mL LV ESV (Teich) 15.6 mL Stroke Vol Index (Teich) 36.95 M-Mode TAPSE 1.92 cm (M/F) >1.7 Auto EF LV EDV A4C 95.6 mL LV EDV A2C 97.2 mL LV EDV BP 97.7 mL LV ESV A4C 47.3 mL LV ESV A2C 44.1 mL LV ESV BP 45.8 mL LVEF(%) A4C 50.5 % LVEF(%) A2C 54.6 % LVEF(%) BP 53.0 % LV SV A4C 48.3 ml LV SV A2C 53.1 ml LV SV BP 51.8 ml LV CO A4C 3.8 L/min LV CO A2C 4.0 L/min LV CO BP 4.0 L/min HR A4C 78.19 BPM HR A2C 76.43 BPM LV EDV Index (BP) LV Strain Long Pk Overal Avg (s) 15.78 LA Volume LA Length A4C 3.2 cm LA Length A2C LA Area A4C s 7.20 cm2 LA Area A2C s LA Vol A4C A-L 13.55 mL LA Vol A2C A-L LA Vol Biplane A-L LA Vol A4C MOD 12.5 mL LA Vol A2C MOD LA Vol BP MOD RA Volume RA Area A4C 6.8 cm2 RA ESV A4C (A-L) 10.3mL RA Vol/BSA A4C A-L RA Length A4C 3.8 cm RA ESV A4C (MOD) 10.1mL LV Diastology MV E' medial 0.082 (>0.07 m/s) MV E Vmax 0.78 (0.4-1.3 m/s) MV E/E' MED 9.56 (<14) MV A Vmax 1.10 (0.4-1.3 m/s) MV E' lateral 0.103 (>0.1 m/s) E/A Ratio 0.7 MV E/E' LAT 7.65 (<14) MV E' Average 0.092 m/s MV E/E'(average) 8.50 Aortic Valve AoV Vmax 1.43 m/s LVOT Vmax 1.24 m/s AoV Peak Grad 8.2 mmHg LVOT Peak Grad 6.1 mmHg AoV Area (Vmax) 2.07 cm2 LVOT VTI 0.207 m AoV VTI 0.255 m LVOT Mean Grad 3.4 mmHg AoV Mean Quinn. 0.99 m/s LVOT SV 49.71 mL AoV Mean Grad 4.5 mmHg LVOT Diam s 1.70 cm AoV Area (VTI) 1.95 cm2 Velocity Ratio 0.87 Mitral Valve MV DT 340 (160-240 msec) Pulmonary Valve PV Vmax 1.27 (0.5-1.5 m/s) RVOT Vmax 0.68 m/s PV Peak Grad 6.4 mmHg RVOT Peak Gr. 1.8 mmHg PV Mean Quinn 0.96 m/s RVOT VTI 0.124 m PV Mean Grad 4.0 mmHg RVOT Mean Gr. 1.1 mmHg Tricuspid Valve RA Pressure 3.00 mmHg
== END ==
PROVIDERS: PCP Family Medicine; Visit Provider Internal Medicine
DX: R06.00 Dyspnea, unspecified (principal)
CPT/HCPCS: 93306

== ENCOUNTER 2023-03-06 09:06 | Outpatient (REF) | payer BC, SELFPAY ==
[2023-03-06 15:23] LABS: Calculated LDL 100 mg/dL (<100); Cholesterol 156 mg/dL (<200); HDL Cholesterol 31 mg/dL (40-60); Triglyceride 125 mg/dL (<150)
[2023-03-06 16:02] LABS: Vitamin D 25 Total 15.1 ng/mL (30-100)
== END 2023-03-06 09:07 | disposition home or self-care (01) ==
LOC: NCHCN 09:06
PROVIDERS: PCP Family Medicine; Visit Provider Family Medicine
DX: E78.6 Lipoprotein deficiency (principal); E55.9 Vitamin D deficiency, unspecified
CPT/HCPCS: 80061; 82306

== ENCOUNTER 2023-04-01 01:51 | Outpatient (RCR) | payer BC, SELFPAY ==
[2023-04-01] MEDS: Normal Saline Flush 10 ML SYR IVP (08:56)
[2023-04-01 09:02] LABS: Abs Immature Grans 0.03 10^3/uL (0.0-0.06); Absolute Basophil Count 0.04 10^3/uL (0.0-0.2); Absolute Eosinophil Count 0.23 10^3/uL (0.0-0.7); Absolute Lymphocyte Count 0.86 10^3/uL (1.2-3.4); Absolute Monocyte Count 0.44 10^3/uL (0.1-0.8); Absolute Neutrophil Count 4.08 10^3/uL (1.2-6.7); Basophils % 0.7; HCT 38.5 % (40.0-50.0); HGB 13.4 g/dL (13.5-17.5); Immature Grans % 0.5; Lymphocytes % 15.1; MCH 32.9 pg (27.0-33.0); MCHC 34.8 % (32.0-36.0); MCV 95 fL (80-95); MPV 9.8 fL (8.0-11.0); Monocytes % 7.7; Platelet Count 180 10^3/uL (130-400); RBC 4.07 10^6/uL (4.36-5.78); RDW 14.5 % (11.8-14.1); RDW-SD 50.4 fL; WBC 5.68 10^3/uL (4.4-10.8)
[2023-04-01 09:30] LABS: ALT 32 U/L (16-63); AST 15 U/L (15-37); Albumin 3.5 g/dL (3.4-5.0); Alkaline Phosphatase 105 U/L (46-116); BUN 17 mg/dL (7-18); Bilirubin, Total 0.3 mg/dL (0.2-1.0); CREATININE 1.3 mg/dL (0.70-1.30); Calcium 8.9 mg/dL (8.5-10.1); Chloride 104 mmol/L (98-107); Estimated GFR 61.73 (mL/min/1.73m2); FREE T4 0.97 ng/dL (0.76-1.46); Glucose 136 mg/dL (74-106); Sodium 138 mmol/L (136-145); TSH 2.51 uIU/mL (0.36-3.74); Total Protein 7.1 g/dL (6.4-8.2)
== END 2023-04-06 23:59 | disposition home or self-care (01) ==
LOC: INF 01:51
PROVIDERS: PCP Family Medicine; Visit Provider Internal Medicine
DX: C67.9 Malignant neoplasm of bladder, unspecified (principal); R94.6 Abnormal results of thyroid function studies
CPT/HCPCS: 36591; 80053; 84439; 84443; 85025

== ENCOUNTER 2023-04-29 03:32 | Outpatient (RCR) | payer BC, SELFPAY ==
[2023-04-29] MEDS: Normal Saline Flush 10 ML SYR IVP (12:37)
[2023-04-29 12:49] LABS: Abs Immature Grans 0.04 10^3/uL (0.0-0.06); Absolute Basophil Count 0.05 10^3/uL (0.0-0.2); Absolute Eosinophil Count 0.32 10^3/uL (0.0-0.7); Absolute Lymphocyte Count 0.94 10^3/uL (1.2-3.4); Absolute Monocyte Count 0.56 10^3/uL (0.1-0.8); Absolute Neutrophil Count 4.54 10^3/uL (1.2-6.7); Basophils % 0.8; HCT 40.8 % (40.0-50.0); Immature Grans % 0.6; Lymphocytes % 14.6; MCHC 34.3 % (32.0-36.0); MCV 93 fL (80-95); Monocytes % 8.7; Neutrophils % 70.3; Platelet Count 208 10^3/uL (130-400); RBC 4.38 10^6/uL (4.36-5.78); RDW 14.7 % (11.8-14.1); RDW-SD 50.8 fL; WBC 6.45 10^3/uL (4.4-10.8)
[2023-04-29 13:18] LABS: ALT 37 U/L (16-63); AST 16 U/L (15-37); Albumin 3.7 g/dL (3.4-5.0); Alkaline Phosphatase 114 U/L (46-116); Anion Gap 8.3 mmol/L (3-11); BUN 18 mg/dL (7-18); Bilirubin, Total 0.3 mg/dL (0.2-1.0); CO2 25.7 mmol/L (21.0-32.0); CREATININE 1.4 mg/dL (0.70-1.30); Calcium 8.8 mg/dL (8.5-10.1); Chloride 104 mmol/L (98-107); Estimated GFR 56.48 (mL/min/1.73m2); Glucose 171 mg/dL (74-106); Potassium 4.1 mmol/L (3.5-5.1); Sodium 138 mmol/L (136-145); TSH 2.03 uIU/mL (0.36-3.74); Total Protein 7.6 g/dL (6.4-8.2)
== END 2023-05-07 23:59 | disposition home or self-care (01) ==
LOC: INF 03:32
PROVIDERS: PCP Family Medicine; Visit Provider Internal Medicine
DX: C67.9 Malignant neoplasm of bladder, unspecified (principal); R94.6 Abnormal results of thyroid function studies; Z45.2 Encounter for adjustment and management of vascular access device
CPT/HCPCS: 36591; 80053; 84439; 84443; 85025

== ENCOUNTER 2023-05-27 04:55 | Outpatient (RCR) | payer BC, SELFPAY ==
[2023-05-27 12:38] LABS: Abs Immature Grans 0.03 10^3/uL (0.0-0.06); Absolute Basophil Count 0.05 10^3/uL (0.0-0.2); Absolute Eosinophil Count 0.39 10^3/uL (0.0-0.7); Absolute Lymphocyte Count 0.89 10^3/uL (1.2-3.4); Absolute Neutrophil Count 4.42 10^3/uL (1.2-6.7); Basophils % 0.8; Eosinophils % 6.1; HCT 40.3 % (40.0-50.0); HGB 14.1 g/dL (13.5-17.5); Immature Grans % 0.5; Lymphocytes % 13.9; MCH 32.3 pg (27.0-33.0); MCV 92 fL (80-95); MPV 9.1 fL (8.0-11.0); Monocytes % 9.4; Neutrophils % 69.3; Platelet Count 208 10^3/uL (130-400); RBC 4.36 10^6/uL (4.36-5.78); RDW 15.3 % (11.8-14.1); RDW-SD 51.8 fL; WBC 6.38 10^3/uL (4.4-10.8)
[2023-05-27] MEDS: Normal Saline Flush 10 ML SYR IVP (12:50)
[2023-05-27 13:11] LABS: ALT 34 U/L (16-63); AST 19 U/L (15-37); Albumin 3.7 g/dL (3.4-5.0); Alkaline Phosphatase 117 U/L (46-116); Anion Gap 10.7 mmol/L (3-11); BUN 17 mg/dL (7-18); Bilirubin, Total 0.4 mg/dL (0.2-1.0); CO2 24.3 mmol/L (21.0-32.0); CREATININE 1.4 mg/dL (0.70-1.30); Calcium 8.7 mg/dL (8.5-10.1); Chloride 103 mmol/L (98-107); Estimated GFR 56.13 (mL/min/1.73m2); FREE T4 0.85 ng/dL (0.76-1.46); Glucose 134 mg/dL (74-106); Potassium 4.2 mmol/L (3.5-5.1); Sodium 138 mmol/L (136-145); TSH 2.45 uIU/mL (0.36-3.74); Total Protein 7.4 g/dL (6.4-8.2)
== END 2023-06-05 23:59 | disposition home or self-care (01) ==
LOC: INF 04:55
PROVIDERS: PCP Family Medicine; Visit Provider Internal Medicine
DX: C67.9 Malignant neoplasm of bladder, unspecified (principal); Z45.2 Encounter for adjustment and management of vascular access device
CPT/HCPCS: 36591; 80053; 84439; 84443; 85025

== ENCOUNTER 2023-06-24 04:24 | Outpatient (RCR) | payer BC, SELFPAY ==
[2023-06-20] MEDS: Normal Saline Flush 10 ML SYR IVP (15:08)
[2023-06-24] MEDS: Normal Saline Flush 10 ML SYR IVP (12:25)
[2023-06-24 12:45] LABS: Abs Immature Grans 0.05 10^3/uL (0.0-0.06); Absolute Basophil Count 0.04 10^3/uL (0.0-0.2); Absolute Eosinophil Count 0.24 10^3/uL (0.0-0.7); Absolute Lymphocyte Count 0.92 10^3/uL (1.2-3.4); Absolute Monocyte Count 0.53 10^3/uL (0.1-0.8); Absolute Neutrophil Count 4.29 10^3/uL (1.2-6.7); Basophils % 0.7; HCT 41.7 % (40.0-50.0); HGB 14.6 g/dL (13.5-17.5); Immature Grans % 0.8; Lymphocytes % 15.2; MCH 33.7 pg (27.0-33.0); MCV 96 fL (80-95); MPV 9.6 fL (8.0-11.0); Monocytes % 8.7; Neutrophils % 70.6; Platelet Count 199 10^3/uL (130-400); RBC 4.33 10^6/uL (4.36-5.78); RDW 15.9 % (11.8-14.1); RDW-SD 56.2 fL; WBC 6.07 10^3/uL (4.4-10.8)
[2023-06-24 13:16] LABS: ALT 33 U/L (16-63); AST 21 U/L (15-37); Albumin 3.7 g/dL (3.4-5.0); Alkaline Phosphatase 102 U/L (46-116); Anion Gap 11.8 mmol/L (3-11); BUN 17 mg/dL (7-18); Bilirubin, Total 0.5 mg/dL (0.2-1.0); CO2 26.2 mmol/L (21.0-32.0); CREATININE 1.4 mg/dL (0.70-1.30); Calcium 8.8 mg/dL (8.5-10.1); Chloride 103 mmol/L (98-107); Estimated GFR 56.13 (mL/min/1.73m2); FREE T4 0.85 ng/dL (0.76-1.46); Glucose 137 mg/dL (74-106); Sodium 141 mmol/L (136-145); Total Protein 7.4 g/dL (6.4-8.2)
== END 2023-07-06 23:59 | disposition home or self-care (01) ==
LOC: INF 04:24
PROVIDERS: PCP Family Medicine; Visit Provider Internal Medicine
DX: C67.9 Malignant neoplasm of bladder, unspecified (principal); R94.6 Abnormal results of thyroid function studies
CPT/HCPCS: 36591; 80053; 96523; 84439; 84443; 85025

== ENCOUNTER 2023-07-22 08:45 | Outpatient (RCR) | payer BC, SELFPAY ==
[2023-07-22] MEDS: Normal Saline Flush 10 ML SYR IVP (12:39)
[2023-07-22 13:03] LABS: Abs Immature Grans 0.06 10^3/uL (0.0-0.06); Absolute Basophil Count 0.04 10^3/uL (0.0-0.2); Absolute Monocyte Count 0.67 10^3/uL (0.1-0.8); Basophils % 0.5; Eosinophils % 3.6; HCT 42.2 % (40.0-50.0); HGB 14.8 g/dL (13.5-17.5); Immature Grans % 0.7; Lymphocytes % 14.5; MCH 34.1 pg (27.0-33.0); MCHC 35.1 % (32.0-36.0); MCV 97 fL (80-95); MPV 9.8 fL (8.0-11.0); Monocytes % 8.1; Neutrophils % 72.6; Platelet Count 192 10^3/uL (130-400); RBC 4.34 10^6/uL (4.36-5.78); RDW 14.7 % (11.8-14.1); RDW-SD 52.9 fL; WBC 8.27 10^3/uL (4.4-10.8)
[2023-07-22 13:54] LABS: ALT 34 U/L (16-63); AST 17 U/L (15-37); Albumin 3.8 g/dL (3.4-5.0); Alkaline Phosphatase 109 U/L (46-116); Anion Gap 12.2 mmol/L (3-11); BUN 16 mg/dL (7-18); Bilirubin, Total 0.5 mg/dL (0.2-1.0); CO2 23.8 mmol/L (21.0-32.0); CREATININE 1.3 mg/dL (0.70-1.30); Calcium 8.6 mg/dL (8.5-10.1); Chloride 106 mmol/L (98-107); Estimated GFR 61.35 (mL/min/1.73m2); FREE T4 0.84 ng/dL (0.76-1.46); Glucose 126 mg/dL (74-106); Potassium 3.6 mmol/L (3.5-5.1); Sodium 142 mmol/L (136-145); TSH 2.86 uIU/Ml (0.36-3.74); Total Protein 7.4 g/dL (6.4-8.2)
== END 2023-08-05 23:59 | disposition home or self-care (01) ==
LOC: INF 08:45
PROVIDERS: PCP Family Medicine; Visit Provider Internal Medicine
DX: C67.9 Malignant neoplasm of bladder, unspecified (principal); Z45.2 Encounter for adjustment and management of vascular access device
CPT/HCPCS: 36591; 80053; 84439; 84443; 85025

== ENCOUNTER 2023-07-30 16:44 | Outpatient (REF) | payer BC, SELFPAY | END 2023-07-30 16:45 | disposition home or self-care (01) | LOC: LBN 16:44 | PROVIDERS: PCP Family Medicine; Visit Provider Urology | DX: R31.9 Hematuria, unspecified (principal) | CPT/HCPCS: 87086 ==

== ENCOUNTER 2023-08-12 16:20 | Outpatient (REF) | payer BC, SELFPAY | END 2023-08-12 16:21 | disposition home or self-care (01) | LOC: LBN 16:20 | PROVIDERS: PCP Family Medicine; Visit Provider Urology | DX: R31.9 Hematuria, unspecified (principal); B96.89 Other specified bacterial agents as the cause of diseases classified elsewhere | CPT/HCPCS: 87086 ==

== ENCOUNTER 2023-08-19 05:02 | Outpatient (RCR) | payer BC, SELFPAY ==
[2023-08-19] MEDS: Normal Saline Flush 10 ML SYR IVP (12:33)
[2023-08-19 12:42] LABS: Abs Immature Grans 0.07 10^3/uL (0.0-0.06); Absolute Basophil Count 0.04 10^3/uL (0.0-0.2); Absolute Lymphocyte Count 0.98 10^3/uL (1.2-3.4); Absolute Monocyte Count 0.65 10^3/uL (0.1-0.8); Absolute Neutrophil Count 5.47 10^3/uL (1.2-6.7); Basophils % 0.5 %; Eosinophils % 2.7 %; HCT 40.9 % (40.0-50.0); HGB 14.6 g/dL (13.5-17.5); Immature Grans % 0.9 %; Lymphocytes % 13.2 %; MCH 34.6 pg (27.0-33.0); MCHC 35.7 % (32.0-36.0); MCV 97 fL (80-95); MPV 9.4 fL (8.0-11.0); Monocytes % 8.8 %; Neutrophils % 73.9 %; Platelet Count 209 10^3/uL (130-400); RBC 4.22 10^6/uL (4.36-5.78); RDW-SD 50.3 fL; WBC 7.41 10^3/uL (4.4-10.8)
[2023-08-19 13:05] LABS: ALT 44 U/L (16-63); AST 20 U/L (15-37); Albumin 3.8 g/dL (3.4-5.0); Alkaline Phosphatase 94 U/L (46-116); BUN 20 mg/dL (7-18); Bilirubin, Total 0.5 mg/dL (0.2-1.0); CREATININE 1.3 mg/dL (0.70-1.30); Calcium 8.5 mg/dL (8.5-10.1); Chloride 105 mmol/L (98-107); Estimated GFR 61.35 (mL/min/1.73m2); FREE T4 0.96 ng/dL (0.76-1.46); Glucose 149 mg/dL (74-106); Potassium 4.3 mmol/L (3.5-5.1); Sodium 139 mmol/L (136-145); TSH 1.67 uIU/Ml (0.36-3.74); Total Protein 7.1 g/dL (6.4-8.2)
== END 2023-09-05 23:59 | disposition home or self-care (01) ==
LOC: INF 05:02
PROVIDERS: PCP Family Medicine; Visit Provider Internal Medicine
DX: C67.9 Malignant neoplasm of bladder, unspecified (principal); R94.6 Abnormal results of thyroid function studies; Z45.2 Encounter for adjustment and management of vascular access device
CPT/HCPCS: 36591; 80053; 84439; 84443; 85025

== ENCOUNTER 2023-09-15 05:50 | Outpatient (RCR) | payer BC, SELFPAY ==
[2023-09-15 14:52] LABS: Abs Immature Grans 0.04 10^3/uL (0.0-0.06); Absolute Basophil Count 0.04 10^3/uL (0.0-0.2); Absolute Eosinophil Count 0.25 10^3/uL (0.0-0.7); Absolute Lymphocyte Count 1.05 10^3/uL (1.2-3.4); Absolute Monocyte Count 0.58 10^3/uL (0.1-0.8); Absolute Neutrophil Count 4.97 10^3/uL (1.2-6.7); Basophils % 0.6 %; Eosinophils % 3.6 %; Immature Grans % 0.6 %; Lymphocytes % 15.2 %; MCH 34.8 pg (27.0-33.0); MCHC 35.7 % (32.0-36.0); MCV 97 fL (80-95); MPV 9.5 fL (8.0-11.0); Monocytes % 8.4 %; Neutrophils % 71.6 %; Platelet Count 207 10^3/uL (130-400); RBC 4.31 10^6/uL (4.36-5.78); RDW 13.9 % (11.8-14.1); RDW-SD 50.4 fL; WBC 6.93 10^3/uL (4.4-10.8)
[2023-09-15] MEDS: Normal Saline Flush 10 ML SYR IVP (14:53)
[2023-09-15 15:13] LABS: ALT 35 U/L (16-63); AST 15 U/L (15-37); Albumin 3.8 g/dL (3.4-5.0); Alkaline Phosphatase 101 U/L (46-116); Anion Gap 9.1 mmol/L (3-11); BUN 18 mg/dL (7-18); Bilirubin, Total 0.6 mg/dL (0.2-1.0); CO2 26.9 mmol/L (21.0-32.0); CREATININE 1.4 mg/dL (0.70-1.30); Calcium 8.7 mg/dL (8.5-10.1); Chloride 105 mmol/L (98-107); Estimated GFR 56.13 (mL/min/1.73m2); FREE T4 0.97 ng/dL (0.76-1.46); Glucose 163 mg/dL (74-106); Potassium 3.8 mmol/L (3.5-5.1); Sodium 141 mmol/L (136-145); TSH 2.31 uIU/Ml (0.36-3.74); Total Protein 7.3 g/dL (6.4-8.2)
== END 2023-10-05 23:59 | disposition home or self-care (01) ==
LOC: INF 05:50
PROVIDERS: PCP Family Medicine; Visit Provider Internal Medicine
DX: C67.9 Malignant neoplasm of bladder, unspecified (principal); R94.6 Abnormal results of thyroid function studies
CPT/HCPCS: 36591; 80053; 84439; 84443; 85025

== ENCOUNTER 2023-10-10 02:21 | Outpatient (RCR) | payer BC, SELFPAY ==
[2023-10-10] MEDS: Normal Saline Flush 10 ML SYR IVP (08:50)
[2023-10-10 09:02] LABS: Abs Immature Grans 0.06 10^3/uL (0.0-0.06); Absolute Basophil Count 0.04 10^3/uL (0.0-0.2); Absolute Eosinophil Count 0.24 10^3/uL (0.0-0.7); Absolute Monocyte Count 0.41 10^3/uL (0.1-0.8); Absolute Neutrophil Count 4.69 10^3/uL (1.2-6.7); Basophils % 0.6 %; Eosinophils % 3.8 %; HCT 43.4 % (40.0-50.0); Immature Grans % 0.9 %; Lymphocytes % 14.2 %; MCH 34.1 pg (27.0-33.0); MCHC 34.6 % (32.0-36.0); MCV 99 fL (80-95); MPV 9.4 fL (8.0-11.0); Monocytes % 6.5 %; Platelet Count 226 10^3/uL (130-400); RDW 13.5 % (11.8-14.1); RDW-SD 48.8 fL; WBC 6.34 10^3/uL (4.4-10.8)
[2023-10-10 09:30] LABS: ALT 29 U/L (16-63); AST 14 U/L (15-37); Albumin 3.5 g/dL (3.4-5.0); Alkaline Phosphatase 96 U/L (46-116); Anion Gap 11.2 mmol/L (3-11); BUN 17 mg/dL (7-18); Bilirubin, Total 0.66 mg/dL (0.2-1.0); CO2 23.8 mmol/L (21.0-32.0); CREATININE 1.5 mg/dL (0.70-1.30); Calcium 8.5 mg/dL (8.5-10.1); Chloride 104 mmol/L (98-107); Estimated GFR 51.67 (mL/min/1.73m2); FREE T4 0.96 ng/dL (0.76-1.46); Glucose 173 mg/dL (74-106); Potassium 3.9 mmol/L (3.5-5.1); Sodium 139 mmol/L (136-145); TSH 2.31 uIU/Ml (0.36-3.74); Total Protein 6.9 g/dL (6.4-8.2)
== END 2023-11-05 23:59 | disposition home or self-care (01) ==
LOC: INF 02:21
PROVIDERS: PCP Family Medicine; Visit Provider Internal Medicine
DX: C67.9 Malignant neoplasm of bladder, unspecified (principal); R94.6 Abnormal results of thyroid function studies; Z45.2 Encounter for adjustment and management of vascular access device
CPT/HCPCS: 36591; 80053; 84439; 84443; 85025

== ENCOUNTER 2023-11-11 01:39 | Outpatient (RCR) | payer BC, SELFPAY ==
[2023-11-11 13:59] LABS: Abs Immature Grans 0.04 10^3/uL (0.0-0.06); Absolute Basophil Count 0.05 10^3/uL (0.0-0.2); Absolute Eosinophil Count 0.35 10^3/uL (0.0-0.7); Absolute Lymphocyte Count 0.93 10^3/uL (1.2-3.4); Absolute Monocyte Count 0.53 10^3/uL (0.1-0.8); Absolute Neutrophil Count 4.83 10^3/uL (1.2-6.7); Basophils % 0.7 %; Eosinophils % 5.2 %; HCT 41.7 % (40.0-50.0); HGB 14.6 g/dL (13.5-17.5); Immature Grans % 0.6 %; Lymphocytes % 13.8 %; MCH 34.2 pg (27.0-33.0); MCV 98 fL (80-95); MPV 9.3 fL (8.0-11.0); Monocytes % 7.9 %; Neutrophils % 71.8 %; Platelet Count 205 10^3/uL (130-400); RBC 4.27 10^6/uL (4.36-5.78); RDW 13.5 % (11.8-14.1); RDW-SD 48.3 fL; WBC 6.73 10^3/uL (4.4-10.8)
[2023-11-11] MEDS: Normal Saline Flush 10 ML SYR IVP (14:08)
[2023-11-11 14:23] LABS: ALT 39 U/L (16-63); AST 19 U/L (15-37); Albumin 3.8 g/dL (3.4-5.0); Alkaline Phosphatase 103 U/L (46-116); Anion Gap 7.3 mmol/L (3-11); BUN 15 mg/dL (7-18); Bilirubin, Total 0.62 mg/dL (0.2-1.0); CO2 26.7 mmol/L (21.0-32.0); CREATININE 1.3 mg/dL (0.70-1.30); Calcium 8.8 mg/dL (8.5-10.1); Chloride 105 mmol/L (98-107); Estimated GFR 61.35 (mL/min/1.73m2); Glucose 140 mg/dL (74-106); Potassium 3.9 mmol/L (3.5-5.1); Sodium 139 mmol/L (136-145); TSH 1.86 uIU/Ml (0.36-3.74); Total Protein 7.2 g/dL (6.4-8.2)
== END 2023-12-06 23:59 | disposition home or self-care (01) ==
LOC: INF 01:39
PROVIDERS: PCP Family Medicine; Visit Provider Internal Medicine
DX: C67.9 Malignant neoplasm of bladder, unspecified (principal); R94.6 Abnormal results of thyroid function studies; Z45.2 Encounter for adjustment and management of vascular access device
CPT/HCPCS: 36591; 80053; 84439; 84443; 85025

== ENCOUNTER 2023-12-09 02:32 | Outpatient (RCR) | payer BC, SELFPAY ==
[2023-12-09 14:24] LABS: Abs Immature Grans 0.05 10^3/uL (0.0-0.06); Absolute Basophil Count 0.06 10^3/uL (0.0-0.2); Absolute Eosinophil Count 0.25 10^3/uL (0.0-0.7); Absolute Lymphocyte Count 1.04 10^3/uL (1.2-3.4); Absolute Monocyte Count 0.77 10^3/uL (0.1-0.8); Absolute Neutrophil Count 4.81 10^3/uL (1.2-6.7); Basophils % 0.9 %; Eosinophils % 3.6 %; HCT 42.9 % (40.0-50.0); Immature Grans % 0.7 %; Lymphocytes % 14.9 %; MCH 34.4 pg (27.0-33.0); MCV 98 fL (80-95); MPV 9.9 fL (8.0-11.0); Neutrophils % 68.9 %; Platelet Count 195 10^3/uL (130-400); RBC 4.36 10^6/uL (4.36-5.78); RDW 13.9 % (11.8-14.1); RDW-SD 50.4 fL; WBC 6.98 10^3/uL (4.4-10.8)
[2023-12-09 14:51] LABS: ALT 29 U/L (16-63); AST 19 U/L (15-37); Albumin 3.8 g/dL (3.4-5.0); Alkaline Phosphatase 95 U/L (46-116); BUN 15 mg/dL (7-18); Bilirubin, Total 0.56 mg/dL (0.2-1.0); CREATININE 1.3 mg/dL (0.70-1.30); Chloride 104 mmol/L (98-107); Estimated GFR 61.35 (mL/min/1.73m2); FREE T4 0.91 ng/dL (0.76-1.46); Glucose 118 mg/dL (74-106); Potassium 3.8 mmol/L (3.5-5.1); Sodium 140 mmol/L (136-145); TSH 2.22 uIU/Ml (0.36-3.74); Total Protein 7.4 g/dL (6.4-8.2)
[2023-12-09 16:12] LABS: Vitamin D 25 Total 25.5 ng/mL (30-100)
== END 2024-01-05 23:59 | disposition home or self-care (01) ==
LOC: INF 02:32
PROVIDERS: PCP Family Medicine; Visit Provider Internal Medicine
DX: C67.9 Malignant neoplasm of bladder, unspecified (principal); R94.6 Abnormal results of thyroid function studies
CPT/HCPCS: 80053; 82306; 83036; 84439; 84443; 85025

== ENCOUNTER 2024-02-03 01:54 | Outpatient (RCR) | payer BC, SELFPAY ==
[2024-01-06] MEDS: Normal Saline Flush 10 ML SYR IVP (13:26)
[2024-01-06 13:56] LABS: Abs Immature Grans 0.04 10^3/uL (0.0-0.06); Absolute Basophil Count 0.06 10^3/uL (0.0-0.2); Absolute Eosinophil Count 0.28 10^3/uL (0.0-0.7); Absolute Lymphocyte Count 1.06 10^3/uL (1.2-3.4); Absolute Monocyte Count 0.63 10^3/uL (0.1-0.8); Absolute Neutrophil Count 5.54 10^3/uL (1.2-6.7); Basophils % 0.8 %; Eosinophils % 3.7 %; HCT 43.7 % (40.0-50.0); HGB 15.1 g/dL (13.5-17.5); Immature Grans % 0.5 %; Lymphocytes % 13.9 %; MCHC 34.6 % (32.0-36.0); MCV 98 fL (80-95); MPV 11.2 fL (8.0-11.0); Monocytes % 8.3 %; Neutrophils % 72.8 %; Platelet Count 173 10^3/uL (130-400); RBC 4.44 10^6/uL (4.36-5.78); RDW 13.7 % (11.8-14.1); RDW-SD 49.5 fL; WBC 7.61 10^3/uL (4.4-10.8)
[2024-01-06 14:12] LABS: ALT 31 U/L (16-63); AST 16 U/L (15-37); Albumin 3.6 g/dL (3.4-5.0); Alkaline Phosphatase 93 U/L (46-116); Anion Gap 8.1 mmol/L (3-11); BUN 18 mg/dL (7-18); Bilirubin, Total 0.53 mg/dL (0.2-1.0); CO2 27.9 mmol/L (21.0-32.0); CREATININE 1.4 mg/dL (0.70-1.30); Chloride 101 mmol/L (98-107); Estimated GFR 56.13 (mL/min/1.73m2); Glucose 139 mg/dL (74-106); Potassium 3.5 mmol/L (3.5-5.1); Sodium 137 mmol/L (136-145); TSH 2.55 uIU/Ml (0.36-3.74); Total Protein 7.1 g/dL (6.4-8.2)
[2024-02-03] MEDS: Normal Saline Flush 10 ML SYR IVP (13:42)
[2024-02-03 14:04] LABS: Abs Immature Grans 0.05 10^3/uL (0.0-0.06); Absolute Basophil Count 0.05 10^3/uL (0.0-0.2); Absolute Eosinophil Count 0.24 10^3/uL (0.0-0.7); Absolute Monocyte Count 0.62 10^3/uL (0.1-0.8); Absolute Neutrophil Count 5.49 10^3/uL (1.2-6.7); Basophils % 0.7 %; Eosinophils % 3.2 %; HCT 42.8 % (40.0-50.0); HGB 14.7 g/dL (13.5-17.5); Immature Grans % 0.7 %; Lymphocytes % 13.4 %; MCH 33.6 pg (27.0-33.0); MCHC 34.3 % (32.0-36.0); MCV 98 fL (80-95); Monocytes % 8.3 %; Neutrophils % 73.7 %; Platelet Count 263 10^3/uL (130-400); RBC 4.37 10^6/uL (4.36-5.78); RDW 13.6 % (11.8-14.1); RDW-SD 49.3 fL; WBC 7.45 10^3/uL (4.4-10.8)
[2024-02-03 14:28] LABS: ALT 36 U/L (16-63); AST 23 U/L (15-37); Albumin 3.6 g/dL (3.4-5.0); Alkaline Phosphatase 104 U/L (46-116); Anion Gap 8.7 mmol/L (3-11); BUN 18 mg/dL (7-18); Bilirubin, Total 0.44 mg/dL (0.2-1.0); CO2 27.3 mmol/L (21.0-32.0); CREATININE 1.5 mg/dL (0.70-1.30); Calcium 9.1 mg/dL (8.5-10.1); Chloride 105 mmol/L (98-107); Estimated GFR 51.67 (mL/min/1.73m2); FREE T4 0.96 ng/dL (0.76-1.46); Glucose 140 mg/dL (74-106); Potassium 3.9 mmol/L (3.5-5.1); Sodium 141 mmol/L (136-145); TSH 2.04 uIU/mL (0.36-3.74); Total Protein 7.4 g/dL (6.4-8.2)
== END 2024-02-05 23:59 | disposition home or self-care (01) ==
LOC: INF 01:54
PROVIDERS: PCP Family Medicine; Visit Provider Internal Medicine
DX: C67.9 Malignant neoplasm of bladder, unspecified (principal); R94.6 Abnormal results of thyroid function studies; Z45.2 Encounter for adjustment and management of vascular access device
CPT/HCPCS: 36591; 80053; 96523; 84439; 84443; 85025

== ENCOUNTER 2024-03-02 01:51 | Outpatient (RCR) | payer BC, SELFPAY ==
[2024-02-26] MEDS: Normal Saline Flush 10 ML SYR IVP (11:30)
[2024-03-02 13:53] LABS: Abs Immature Grans 0.07 10^3/uL (0.0-0.06); Absolute Basophil Count 0.06 10^3/uL (0.0-0.2); Absolute Eosinophil Count 0.32 10^3/uL (0.0-0.7); Absolute Lymphocyte Count 1.05 10^3/uL (1.2-3.4); Absolute Neutrophil Count 4.84 10^3/uL (1.2-6.7); Basophils % 0.9 %; Eosinophils % 4.6 %; HCT 41.6 % (40.0-50.0); HGB 14.3 g/dL (13.5-17.5); Lymphocytes % 15.1 %; MCH 33.4 pg (27.0-33.0); MCHC 34.4 % (32.0-36.0); MCV 97 fL (80-95); MPV 8.8 fL (8.0-11.0); Monocytes % 8.6 %; Neutrophils % 69.8 %; Platelet Count 281 10^3/uL (130-400); RBC 4.28 10^6/uL (4.36-5.78); RDW 13.6 % (11.8-14.1); RDW-SD 48.4 fL; WBC 6.94 10^3/uL (4.4-10.8)
[2024-03-02 14:13] LABS: ALT 27 U/L (16-63); AST 17 U/L (15-37); Albumin 3.6 g/dL (3.4-5.0); Alkaline Phosphatase 104 U/L (46-116); BUN 14 mg/dL (7-18); Bilirubin, Total 0.49 mg/dL (0.2-1.0); CREATININE 1.4 mg/dL (0.70-1.30); Calcium 8.3 mg/dL (8.5-10.1); Chloride 105 mmol/L (98-107); Estimated GFR 56.13 (mL/min/1.73m2); FREE T4 0.91 ng/dL (0.76-1.46); Glucose 114 mg/dL (74-106); Sodium 140 mmol/L (136-145); TSH 3.96 uIU/mL (0.36-3.74); Total Protein 7.3 g/dL (6.4-8.2)
== END 2024-03-06 23:59 | disposition home or self-care (01) ==
LOC: INF 01:51
PROVIDERS: PCP Family Medicine; Visit Provider Internal Medicine
DX: C67.9 Malignant neoplasm of bladder, unspecified (principal); R94.6 Abnormal results of thyroid function studies
CPT/HCPCS: 80053; 96523; 84439; 84443; 85025

== ENCOUNTER 2024-03-12 09:09 | Outpatient (REF) | payer BC, SELFPAY ==
[2024-03-12 15:58] LABS: Hemoglobin A1C 6.2 % (<5.7)
[2024-03-12 16:14] LABS: Anion Gap 12.6 mmol/L (3-11); BUN 22 mg/dL (7-18); CO2 22.4 mmol/L (21.0-32.0); CREATININE 1.5 mg/dL (0.70-1.30); Calcium 9.1 mg/dL (8.5-10.1); Calculated LDL 119 mg/dL (<100); Chloride 105 mmol/L (98-107); Cholesterol 179 mg/dL (<200); Estimated GFR 51.67 (mL/min/1.73m2); Glucose 141 mg/dL (74-106); HDL Cholesterol 41 mg/dL (40-60); Potassium 4.2 mmol/L (3.5-5.1); Sodium 140 mmol/L (136-145); Triglyceride 99 mg/dL (<150); Vitamin D 25 Total 23.4 ng/mL (30-100)
== END 2024-03-12 09:10 | disposition home or self-care (01) ==
LOC: NCHCN 09:09
PROVIDERS: PCP Family Medicine; Visit Provider Family Medicine
DX: I51.9 Heart disease, unspecified (principal); R73.03 Prediabetes; E66.9 Obesity, unspecified; E55.9 Vitamin D deficiency, unspecified
CPT/HCPCS: 80048; 80061; 82306; 83036

== ENCOUNTER 2024-04-12 20:28 | Outpatient (REF) | payer OTHER, SELFPAY ==
[2024-04-12 10:21] LABS: Bilirubin Negative (Negative); Blood Moderate (Negative); Clarity Cloudy (Clear); Glucose Negative (Negative); Ketones Negative (Negative); Leukocyte Esterase Moderate (Negative); Nitrite Negative (Negative); Specific Gravity 1.015 (1.005-1.025); Urobilinogen 0.2 mg/dL (Up to 0.2); pH 6.5 (5-8)
[2024-04-12 10:45] LABS: Bacteria Few HPF (Negative); C & S Indicated? C&S Done As Ordered; Casts Negative LPF (Negative); Crystals Negative HPF (Negative); Epithelial Cells Rare HPF (Negative); Mucus Negative (Negative)
== END 2024-04-12 20:29 | disposition home or self-care (01) ==
LOC: LBN 20:28
PROVIDERS: PCP Family Medicine; Visit Provider Surgery
DX: R10.9 Unspecified abdominal pain (principal)
CPT/HCPCS: 87077; 81003; 81015; 87086; 87186

== ENCOUNTER 2024-05-12 00:21 | Outpatient (CLI) | payer OTHER, SELFPAY ==
--- NOTE | 2024-05-12 | DI.MRI_ITS ---
Exam(s) MR LUMBAR SPINE WO EXAM: MR LUMBAR SPINE WO CLINICAL HISTORY: Lumbosacral radiculopathy, M54.17; scrotal pain, N50.82. TECHNIQUE: Multiplanar multisequence MRI of the Lumbar spine was performed. COMPARISON: CR XR ABDOMEN 1 VIEW (GENERIC) from 02/07/[address] ABDOMEN PELVIS WO/W from 02/26/2024 FINDINGS: Bones: The last intervertebral disc space is designated the L5/S1 level for the numbering purpose of this ex amination. The vertebral body heights are well maintained. Alignment: Unremarkable. The marrow signal characteristics are unremarkable. Small Schmorl's nodes at the superior endplates of L3 and L4. Cord: The conus tip ends at the T12 level. It is of normal size and signal intensity. T12-L1: No focal disc herniation is present. No central spinal canal stenosis.No neural foraminal st enosis. L1-2:Mild concentric disc bulging. No focal disc herniation is present. No central spinal canal harvey nosis.No neural foraminal stenosis. L2-3:Mild concentric disc bulging. No focal disc herniation is present. No central spinal canal harvey nosis.No neural foraminal stenosis. L3-4: Mild concentric disc bulging. No focal disc herniation is present. No central spinal canal st enosis.No neural foraminal stenosis. L4-5:Mild concentric disc bulging. No focal disc herniation is present. No central spinal canal sten osis.No neural foraminal stenosis. L5-S1: Disc osteophytes eccentric toward the left. Prominent posteriorly projecting osteophytes were noted on prior CT. Findings appear similar to prior CT. No focal disc herniation is present. Mild fac et degenerative changes. No central spinal canal stenosis.Moderate to severe neural foraminal stenos is. The visualized SI joints and sacrum are unremarkable. Soft tissues: The paraspinal soft tissues are unremarkable. IMPRESSION: Disc osteophytes eccentric toward the left at L5-S1 cause moderate to severe left neural foraminal na rrowing. More superior levels show mild disc bulging. DATA REPOSITORY:
== END 2024-05-12 00:41 ==
PROVIDERS: PCP Family Medicine; Visit Provider Family Medicine
DX: M48.062 Spinal stenosis, lumbar region with neurogenic claudication (principal)
CPT/HCPCS: 72148

== ENCOUNTER 2024-06-04 00:16 | Outpatient (CLI) | payer OTHER, SELFPAY ==
[2024-06-04 13:25] LABS: Abs Immature Grans 0.03 10^3/uL (0.0-0.06); Absolute Basophil Count 0.05 10^3/uL (0.0-0.2); Absolute Eosinophil Count 0.27 10^3/uL (0.0-0.7); Absolute Lymphocyte Count 0.83 10^3/uL (1.2-3.4); Absolute Monocyte Count 0.71 10^3/uL (0.1-0.8); Absolute Neutrophil Count 5.35 10^3/uL (1.2-6.7); Basophils % 0.7 %; Eosinophils % 3.7 %; HCT 40.5 % (40.0-50.0); HGB 14.5 g/dL (13.5-17.5); Immature Grans % 0.4 %; Lymphocytes % 11.5 %; MCHC 35.8 % (32.0-36.0); MCV 95 fL (80-95); MPV 9.1 fL (8.0-11.0); Monocytes % 9.8 %; Neutrophils % 73.9 %; Platelet Count 225 10^3/uL (130-400); RBC 4.27 10^6/uL (4.36-5.78); RDW 14.5 % (11.8-14.1); RDW-SD 50.6 fL; WBC 7.24 10^3/uL (4.4-10.8)
[2024-06-04 13:46] LABS: ALT 31 U/L (16-63); AST 21 U/L (15-37); Albumin 3.5 g/dL (3.4-5.0); Alkaline Phosphatase 108 U/L (46-116); BUN 18 mg/dL (7-18); Bilirubin, Total 0.43 mg/dL (0.2-1.0); CREATININE 1.3 mg/dL (0.70-1.30); Calcium 9.3 mg/dL (8.5-10.1); Chloride 105 mmol/L (98-107); Estimated GFR 60.96 (mL/min/1.73m2); Glucose 140 mg/dL (74-106); Potassium 4.2 mmol/L (3.5-5.1); Sodium 140 mmol/L (136-145); Total Protein 7.2 g/dL (6.4-8.2)
[2024-06-04] MEDS: Normal Saline - Diluent 50 ML VIAL IJ (14:15)
[2024-06-04] MEDS: Omnipaque 350 MG/ML 100 ML BTL IJ (14:15)
--- NOTE | 2024-06-04 14:24 | DI.CT_ITS ---
Exam(s) CT ABDOMEN PELVIS WO/W EXAM: CT ABDOMEN PELVIS WO/W CLINICAL HISTORY: BLADDER CANCE RC67.9 RESTAGING. TECHNIQUE: Imaging Protocol: Axial computed tomography images with coronal and sagittal reformatted images were created and reviewed. Images were performed from the lung bases through the ischial tuberosities before IV contrast and fol lowing IV contrast using a 70 second delay, followed by 7 minutes delayed images. CONTRAST MATERIAL: Intravenous: Omnipaque 350 Contrast volume:100 cc Oral: no COMPARISON: CT CT ABDOMEN PELVIS WO/W from 02/26/2024 FINDINGS: Lung Bases: Normal where visualized. Liver: Normal density. No measurable mass. Gallbladder and biliary tract: Cholecystectomy. No biliary dilation. Pancreas: Normal density, no abnormal calcifications or inflammatory process. Spleen: Normal. Kidneys: Normal size, contour and axis. Symmetric bilateral renal enhancement. No radiodense stones or obstructive uropathy. No suspicious masses seen. Both ureters extend to a diverting ileal loop which leads to a right sided abdominal wall ostomy. Adrenal glands: No masses seen. Lymph nodes: Within normal limits. Abdominal Aorta: Abdominal portion non-dilated. Soft tissues: Right-sided ostomy. Bladder: Status post cystectomy. Bowel: Stomach unremarkable. No obstruction or bowel wall thickening. Right lower quadrant ileal lo op. Moderate quantity of stool. Peritoneal cavity: No ascites, collection or mesenteric inflammatory response. Small bilateral surgic al clips in the pelvis. Bones: Unremarkable for age.. Reproductive organs: Status post prostatectomy and resection of seminal vesicles. IMPRESSION: Status post cystectomy. Ileal loop and right-sided ostomy appear intact. No evidence of recurrent mass, adenopathy or metastatic disease. RADIATION DOSE DELIVERED: 2,425.28mGy.cm Total DLP DATA REPOSITORY: All CT scans at this facility are submitted to the National Radiology Data Registry (NRDR) Dose Index Registry (DIR) with the [employer] (ACR). RADIATION OPTIMIZATION: All CT scans at this facility use at least one of these dose optimization te chniques: automated exposure control; mA and/or kV adjustment per patient size (includes targeted exa ms where dose is matched to clinical indication); or iterative reconstruction.
--- NOTE | 2024-06-04 14:37 | DI.CT_ITS ---
Exam(s) CT CHEST W EXAM: CT CHEST W CLINICAL HISTORY: BLADDER CANCE RC67.9 RESTAGING TECHNIQUE: Imaging Protocol: Axial computed tomography images with coronal and sagittal reformatted images were created and reviewed. Computer aided detection (CAD) was utilized. CONTRAST MATERIAL: Intravenous: Omnipaque 350Contrast volume:100 mL. COMPARISON: CT CT CHEST W from 02/26/[address] ABDOMEN PELVIS WO/W from 06/04/2024 FINDINGS: Tracheobronchial tree: Patent where visualized. No evidence of bronchiectasis. Pulmonary parenchyma: No focal consolidation. There is a new 5 mm nodule in the right lower lobe (se nova 8, image 91). No architectural distortion. Mediastinum and Karla: No dominant adenopathy or fluid collection. The esophagus is unremarkable. Thyroid gland: There are few tiny hypodensities in the thyroid gland. No follow-up is recommended. There are stable. The largest measures 6 mm. Pleura: No effusion or pneumothorax. Heart: The heart is not dilated. No coronary artery calcifications are seen. No pericardial effusion. Aorta: Thoracic aorta non-dilated. There is no evidence of dissection. Mild atherosclerotic calcific ation is present. Pulmonary arteries: No pulmonary emboli are identified. Upper abdomen: Unremarkable. Lymph nodes: Within normal limits. Bones: Within normal limits for the patient's age. Soft tissues: Unremarkable. IMPRESSION: 1. There is a new 5 mm nodule in the right lower lobe. 2. No acute pulmonary process. RADIATION DOSE DELIVERED: 2,425.28mGy.cm Total DLP DATA REPOSITORY: All CT scans at this facility are submitted to the National Radiology Data Registry (NRDR) Dose Index Registry (DIR) with the [employer] (ACR). RADIATION OPTIMIZATION: All CT scans at this facility use at least one of these dose optimization te chniques: automated exposure control; mA and/or kV adjustment per patient size (includes targeted exa ms where dose is matched to clinical indication); or iterative reconstruction.
== END 2024-06-04 00:36 ==
LOC: DI 00:17
PROVIDERS: PCP Family Medicine; Visit Provider Internal Medicine
DX: C67.9 Malignant neoplasm of bladder, unspecified (principal); R91.1 Solitary pulmonary nodule
CPT/HCPCS: 80053; 71260; 74178; 85025; J3490

== ENCOUNTER 2024-06-08 11:26 | Outpatient (CLI) | payer OTHER, SELFPAY ==
[2024-06-08 10:32] LABS: TSH 3.19 uIU/mL (0.36-3.74)
[2024-06-08 11:02] LABS: Abs Immature Grans 0.04 10^3/uL (0.0-0.06); Absolute Basophil Count 0.06 10^3/uL (0.0-0.2); Absolute Eosinophil Count 0.19 10^3/uL (0.0-0.7); Absolute Lymphocyte Count 0.72 10^3/uL (1.2-3.4); Absolute Monocyte Count 0.57 10^3/uL (0.1-0.8); Absolute Neutrophil Count 5.22 10^3/uL (1.2-6.7); Basophils % 0.9 %; Eosinophils % 2.8 %; HCT 43.3 % (40.0-50.0); HGB 14.7 g/dL (13.5-17.5); Immature Grans % 0.6 %; Lymphocytes % 10.6 %; MCH 33.2 pg (27.0-33.0); MCHC 33.9 % (32.0-36.0); MCV 98 fL (80-95); MPV 9.2 fL (8.0-11.0); Monocytes % 8.4 %; Neutrophils % 76.7 %; Platelet Count 235 10^3/uL (130-400); RBC 4.43 10^6/uL (4.36-5.78); RDW 14.5 % (11.8-14.1); RDW-SD 52.2 fL
[2024-06-08 11:19] LABS: ALT 23 U/L (16-63); AST 16 U/L (15-37); Albumin 3.4 g/dL (3.4-5.0); Alkaline Phosphatase 111 U/L (46-116); Anion Gap 12.4 mmol/L (3-11); BUN 15 mg/dL (7-18); Bilirubin, Total 0.48 mg/dL (0.2-1.0); CO2 22.6 mmol/L (21.0-32.0); CREATININE 1.5 mg/dL (0.70-1.30); Calcium 8.9 mg/dL (8.5-10.1); Chloride 105 mmol/L (98-107); Estimated GFR 51.35 (mL/min/1.73m2); Glucose 171 mg/dL (74-106); Potassium 4.2 mmol/L (3.5-5.1); Sodium 140 mmol/L (136-145); Total Protein 7.4 g/dL (6.4-8.2)
== END 2024-06-08 11:27 | disposition home or self-care (01) ==
LOC: LBO 11:29
PROVIDERS: PCP Family Medicine; Visit Provider Internal Medicine
DX: R94.6 Abnormal results of thyroid function studies (principal); C67.9 Malignant neoplasm of bladder, unspecified
CPT/HCPCS: 36415; 80053; 84439; 84443; 85025

== ENCOUNTER 2024-07-28 14:36 | Outpatient (CLI) | payer OTHER, SELFPAY ==
--- NOTE | 2024-07-28 06:00 | DI.RAD_ITS ---
Exam(s) XR PAIN CLINIC LUMBAR SP 2V EXAM: XR PAIN CLINIC LUMBAR SP 2V CLINICAL HISTORY: Dx: Lumbar Radiculopathy TECHNIQUE: 2D and realtime digital imaging was performed. Radiologist not present. CONTRAST MATERIAL: None. COMPARISON: No exams were available for comparison FINDINGS: Fluoroscopy was provided for pain management therapy. Lumbar spine therapeutic procedure. Please refer to procedure report or details. Radiation Exposure Index: Ka,r=23.50 mGy IMPRESSION: As above. RADIATION DOSE DELIVERED:
--- NOTE | 2024-07-28 14:44 | PDOC.PAIN ---
Date of service: 07/28/24 Time of Service: 15:31 Pain Managment Procedure Note Procedure Note Procedure Note: Lumbar Transforaminal Epidural Steroid Injection ? Location: LEFT L5 ? Pre-procedure Diagnosis: M54.17-Radiculopathy, lumbosacral region M54.16 Radiculopathy, lumbar region ? Post-procedure Diagnosis:? The same as above ? Sedation:? none ? Estimated blood loss:? less than 2 cc ? Surgeon:? Favian Ponce MD COMMENT: L5-S1: Disc osteophytes eccentric toward the left. .Moderate to severe neural foraminal stenosis. ? Procedure Detail:?? The procedure and potential risks were explained to the patient and informed written consent was obtained. The patient was escorted to the procedure room and placed in the prone position. Pillows were utilized for proper positioning and comfort. Time out was performed in the procedure room with nursing staff confirming the patient's identity, procedure to be performed, allergies, and any blood thinning or anti-platelet medications. The patient's lower back was prepped with ChloraPrep and draped in a sterile fashion. Sterile gloves were used, a face mask was worn, and new single dose vials of all medications were used with the top being swabbed with alcohol and given time to dry prior to withdrawal of medication. A LEFT-sided oblique fluoroscopic view was obtained, with visualization of L5-S1. Lidocaine 1% was used to anesthetize the skin. The tip of a 22-gauge, Quincke needle was advanced toward the 6 o'clock position of the superior pedicle at the target level.? It was advanced just under the pedicle to the neural foramen L5-S1. Correct needle placement was confirmed through review of the fluoroscopy. Next, following negative aspiration, 1cc's of Omnipaque 240 contrast was injected under live fluoroscopy which showed good flow throughout the epidural space and no evidence of vascular flow or flow into adjacent compartments. Next, following negative aspiration, 40mg Depo-Medrol and 0.5ml of 0.5% bupivacaine was injected. The needle was gently removed.? ? The patient tolerated the procedure well.? Permanent images saved and recorded. Plan:? Follow up prn PAIN: PRE PROCEDURE 05/17 POST PROCEDURE 04/16 COMMENT: If not better will follow-up in the office as he has complaints that are not classic for L5 radiculitis Coding Conscious Sedation used for procedure: No CPT Codes: Transforaminal Lumbar/Sacral (includes fluoro) - [id number] ([id number] ~G) Additional Codes: Date of Service ([id number]) Date of service: 07/28/24
[2024-07-28 14:46] VITALS: BP 149/87; PULSE 93; RESP 18; TEMP 36.5; O2SAT 94
[2024-07-28 15:12] VITALS: PULSE 93
[2024-07-28 15:20] VITALS: PULSE 95; O2SAT 97
[2024-07-28] MEDS: Omnipaque 240 MG/ML 50 ML BTL IJ (15:28)
[2024-07-28] MEDS: Nerve Block Tray 1 EACH MC (15:28)
[2024-07-28] MEDS: Bupivacaine 0.5% Pres-Free 10 ML VIAL IJ (15:28)
[2024-07-28] MEDS: methylPREDNISolone ACETATE 80 MG/ML VIAL IJ (15:29)
== END 2024-07-28 14:37 | disposition home or self-care (01) ==
LOC: PC 14:37
PROVIDERS: PCP Family Medicine; Visit Provider Anesthesiology Pain Medicine
DX: M54.17 Radiculopathy, lumbosacral region (principal); M54.16 Radiculopathy, lumbar region
CPT/HCPCS: 64483; 72100; J0665; J1010; Q9967

== ENCOUNTER 2024-10-12 18:01 | Outpatient (REF) | payer OTHER, SELFPAY ==
[2024-10-12 21:28] LABS: HCT 41.4 % (40.0-50.0); HGB 14.4 g/dL (13.5-17.5); MCH 34.0 pg (27.0-33.0); MCHC 34.8 % (32.0-36.0); MCV 98 fL (80-95); MPV 9.3 fL (8.0-11.0); Platelet Count 268 10^3/uL (130-400); RBC 4.24 10^6/uL (4.36-5.78); RDW 14.8 % (11.8-14.1); RDW-SD 53.6 fL; WBC 6.79 10^3/uL (4.4-10.8)
[2024-10-12 21:40] LABS: Anion Gap 11.0 mmol/L (3-11); BUN 18 mg/dL (7-18); CO2 23.0 mmol/L (21.0-32.0); Calcium 9.1 mg/dL (8.5-10.1); Chloride 106 mmol/L (98-107); Estimated GFR 55.78 (mL/min/1.73m2); Glucose 153 mg/dL (74-106); Potassium 4.5 mmol/L (3.5-5.1); Sodium 140 mmol/L (136-145)
[2024-10-12 21:45] LABS: Hemoglobin A1C 6.2 % (<5.7)
== END 2024-10-12 18:02 | disposition home or self-care (01) ==
LOC: NCHCN 18:01
PROVIDERS: PCP Family Medicine; Visit Provider Nurse Practitioner Family
DX: R82.998 Other abnormal findings in urine (principal); R73.9 Hyperglycemia, unspecified; R31.9 Hematuria, unspecified
CPT/HCPCS: 80048; 85027; 83036; 87086

== ENCOUNTER 2024-10-13 13:39 | Outpatient (REF) | payer OTHER, SELFPAY ==
[2024-10-13 11:20] LABS: Glucose Negative (Negative)
[2024-10-13 11:36] LABS: RBC >50 HPF (0-2); WBC 20-50 HPF (0-5)
[2024-10-13 11:37] LABS: C & S Indicated? Yes
== END 2024-10-13 13:40 | disposition home or self-care (01) ==
LOC: NCHCN 13:39
PROVIDERS: PCP Family Medicine; Visit Provider Nurse Practitioner Family
DX: R31.9 Hematuria, unspecified (principal); R82.89 Other abnormal findings on cytological and histological examination of urine
CPT/HCPCS: 87077; 81003; 81015; 87086; 87186

== ENCOUNTER 2024-11-05 02:14 | Outpatient (CLI) | payer OTHER, SELFPAY ==
[2024-11-05 07:27] LABS: Abs Immature Grans 0.04 10^3/uL (0.0-0.06); HCT 41.1 % (40.0-50.0); HGB 13.8 g/dL (13.5-17.5); Immature Grans % 0.7 %; MCH 32.7 pg (27.0-33.0); MCHC 33.6 % (32.0-36.0); MCV 97 fL (80-95); MPV 9.2 fL (8.0-11.0); Platelet Count 195 10^3/uL (130-400); RBC 4.22 10^6/uL (4.36-5.78); RDW 14.7 % (11.8-14.1); RDW-SD 52.8 fL; WBC 6.08 10^3/uL (4.4-10.8)
[2024-11-05 08:14] LABS: ALT 29 U/L (16-63); AST 18 U/L (15-37); Albumin 3.5 g/dL (3.4-5.0); Alkaline Phosphatase 103 U/L (46-116); Anion Gap 10.2 mmol/L (3-11); BUN 16 mg/dL (7-18); Bilirubin, Total 0.4 mg/dL (0.2-1.0); CO2 25.8 mmol/L (21.0-32.0); Calcium 8.4 mg/dL (8.5-10.1); Chloride 104 mmol/L (98-107); Estimated GFR 51.35 (mL/min/1.73m2); Glucose 151 mg/dL (74-106); Potassium 3.8 mmol/L (3.5-5.1); Sodium 140 mmol/L (136-145); TSH 3.26 uIU/mL (0.36-3.74); Total Protein 7.2 g/dL (6.4-8.2)
== END 2024-11-05 02:15 | disposition home or self-care (01) ==
LOC: LBO 02:14
PROVIDERS: PCP Family Medicine; Visit Provider Internal Medicine
DX: C67.9 Malignant neoplasm of bladder, unspecified (principal)
CPT/HCPCS: 36415; 80053; 84439; 84443; 85025

== ENCOUNTER 2024-11-15 04:42 | Outpatient (CLI) | payer OTHER, SELFPAY ==
[2024-11-15 16:01] LABS: Abs Immature Grans 0.08 10^3/uL (0.0-0.06); HCT 41.8 % (40.0-50.0); HGB 14.8 g/dL (13.5-17.5); Immature Grans % 1.1 %; MCH 33.7 pg (27.0-33.0); MCHC 35.4 % (32.0-36.0); MCV 95 fL (80-95); MPV 8.9 fL (8.0-11.0); Platelet Count 250 10^3/uL (130-400); RBC 4.39 10^6/uL (4.36-5.78); RDW 14.3 % (11.8-14.1); RDW-SD 49.6 fL; WBC 7.51 10^3/uL (4.4-10.8)
[2024-11-15 16:39] LABS: ALT 36 U/L (16-63); AST 22 U/L (15-37); Albumin 3.8 g/dL (3.4-5.0); Alkaline Phosphatase 120 U/L (46-116); Anion Gap 10.8 mmol/L (3-11); BUN 20 mg/dL (7-18); Bilirubin, Total 0.4 mg/dL (0.2-1.0); CO2 23.2 mmol/L (21.0-32.0); Calcium 9.0 mg/dL (8.5-10.1); Chloride 106 mmol/L (98-107); Estimated GFR 55.78 (mL/min/1.73m2); Glucose 181 mg/dL (74-106); Potassium 3.9 mmol/L (3.5-5.1); Sodium 140 mmol/L (136-145); TSH 2.49 uIU/mL (0.36-3.74); Total Protein 7.7 g/dL (6.4-8.2)
== END 2024-11-15 04:43 | disposition home or self-care (01) ==
LOC: LBO 04:42
PROVIDERS: PCP Family Medicine; Visit Provider Internal Medicine
DX: C79.10 Secondary malignant neoplasm of unspecified urinary organs (principal); R94.6 Abnormal results of thyroid function studies
CPT/HCPCS: 36415; 80053; 84439; 84443; 85025

== ENCOUNTER 2024-11-24 16:29 | Observation (INO) | payer OTHER, SELFPAY ==
[2024-11-24] VITALS (18 sets, daily range): BP systolic 150–181; BP diastolic 78–115; PULSE 102–118; RESP 18; TEMP 35.8–36.5; O2SAT 94–99
--- NOTE | 2024-11-24 17:00 | DI.CT_ITS ---
Exam(s) CT THORACIC SPINE W EXAM: CT THORACIC SPINE W CLINICAL HISTORY: c/f cauda equina, hx metastatic bladder ca. TECHNIQUE: Imaging Protocol: Axial computed tomography images with coronal and sagittal reformatted images were created and reviewed. CONTRAST MATERIAL: Intravenous: Omnipaque 350 Contrast volume:100 mL contrast route:IV - Oral: None COMPARISON: CT CT CHEST W from 06/04/[address] ABDOMEN PELVIS WO/W from 06/04/[address] LUMBAR SPINE W from 11/24/2024 FINDINGS: INCIDENTAL: The entire lungs are not included in the field of view of this spine study. However, there is a cavitated lesion in the right lower lobe measuring approximately 1.8 by 1.4 cm. First consideration is for neoplastic either primary or metastatic. Also infectious. There are no pleural effusions. Thyroid gland size is normal. Multiple small thyroid nodules are noted. OSSEOUS: There is anterior fusion plate at C6-7 level and chronic disc space narrowing at C5-6 level seen in the peripheral aspect of the field of view. There are no fractures of the thoracic vertebral bodies and no osseous lesions evident. No prominent disc space narrowing. Multilevel anterior right osteophytes are noted in the mid-lower thoracic spine. However, there are no concerning focal bone lesions in the spinal column. Soft tissues: No obvious disc herniations identified. No abnormal enhancement evident within the spinal canal. No evidence of paraspinal mass. IMPRESSION: Evidence of previous anterior fusion in the lower cervical spine at C6-7 level. No significant findings in the thoracic spinal column. Incidentally noted is a cavitated lesion in the right lower lobe measuring 18 x 14 mm. Given the history here this may be neoplastic either metastatic or primary. Also consider infectious etiology for this abnormal right lung finding which was not present on a chest CT scan of 06/04/2024. Report called by myself to ER physician 11/24/2024 at 6:58 p.m. RADIATION DOSE DELIVERED: 2,510.58mGy.cm Total DLP DATA REPOSITORY: All CT scans at this facility are submitted to the National Radiology Data Registry (NRDR) Dose Index Registry (DIR) with the [employer] (ACR). RADIATION OPTIMIZATION: All CT scans at this facility use at least one of these dose optimization techniques: automated exposure control; mA and/or kV adjustment per patient size (includes targeted exams where dose is matched to clinical indication); or iterative reconstruction.
--- NOTE | 2024-11-24 17:00 | DI.CT_ITS ---
Exam(s) CT LUMBAR SPINE W EXAM: CT LUMBAR SPINE W CLINICAL HISTORY: c/f cauda equina. TECHNIQUE: Imaging Protocol: Axial computed tomography images with coronal and sagittal reformatted images were created and reviewed IV CONTRAST INJECTED: 100 cc Optiray 320 COMPARISON: CT CT ABDOMEN PELVIS WO/W from 06/04/2024 FINDINGS: INCIDENTAL FINDINGS: Again noted is evidence of previous cystectomy and ureteral diversion. There is a new finding in the left side of the pelvis intimately associated with the left obturator internus muscle just medial to the left hip acetabular. This is a 5 by 3 by 4 cm thick walled cystic appearing structure which may represent lymphocele, adenopathy, or cannot exclude metastatic lesion. There is no destruction of the adjacent medial wall of the left hip acetabulum. There is mild fusiform dilatation of the inferior abdominal aorta exhibiting maximum diameter 2.3 cm. The aorta above this level is 1.9 cm. There is no aneurysm of the iliac arteries. There is no adenopathy around the aortic bifurcation nor along the iliac chains. Bones: There are no fractures, listhesis, nor pars defects. There are no lytic osseous lesions evident.There is a Schmorl's node invagination in the anterior aspect of the superior endplate of L3 vertebral body. There is no abnormal enhancement evident in the lumbar spinal canal and epidural space nor in the paraspinal tissues. INDIVIDUAL DISC SPACE LEVELS: T12-L1:No disc herniation nor canal stenosis. Facet joints unremarkable. No foraminal stenosis. L1-2: There is normal disc height. symmetrical annular bulging without a dominant disc herniation. there is mild central spinal canal stenosis. Facet joints unremarkable. No foraminal stenosis. L2-3: Mild uniform disc space narrowing. No disc herniation nor significant central canal stenosis. No significant foraminal stenosis. No facet arthropathy. L3-4: Normal disc height. No disc herniation. Central canal dimensions lower normal. Mild facet arthropathy. No foraminal stenosis. L4-5: Preserved disc height. No disc herniation or central canal stenosis. Mild bilateral foraminal stenosis. No significant facet arthropathy. L5-S1: There is mild disc space narrowing at this level. There is annular bulging and some posterior calcification. No prominent disc herniation. Central canal dimensions are lower normal. Mild facet arthropathy. There is mild-moderate bilateral foraminal stenosis. The visualized sacroiliac joints and sacrum appear unremarkable. IMPRESSION: 1. Mild multilevel findings as described individually above but no large disc herniation nor prominent central canal stenosis. There is mild-moderate bilateral foraminal stenosis at L5-S1 level. There is mild bilateral foraminal stenosis at L4-5 level. 2. There is no abnormal enhancement within the spinal canal and paraspinal tissues. 3. Incidentally noted is evidence of previous cystectomy and there has been development of a 5 by 4 x 3 thick-walled cystic structure in the lower left pelvic sidewall at the level the left obturator internus muscle just medial to the left hip acetabulum, not associated with adjacent bone destruction. Given that there has been prior cystectomy, the main considerations for this new finding are cystocele, infectious/abscess, or metastatic. There is no lymphadenopathy around the aortic bifurcation nor along the iliac chains. Findings discussed by phone with ER provider 11/24/2024 at 6:54 p.m. RADIATION DOSE DELIVERED: 2,510.58mGy.cm Total DLP DATA REPOSITORY: All CT scans at this facility are submitted to the National Radiology Data Registry (NRDR) Dose Index Registry (DIR) with the [employer] (ACR). RADIATION OPTIMIZATION: All CT scans at this facility use at least one of these dose optimization techniques: automated exposure control; mA and/or kV adjustment per patient size (includes targeted exams where dose is matched to clinical indication); or iterative reconstruction.
[2024-11-24 17:44] LABS: Abs Immature Grans 0.11 10^3/uL (0.0-0.06); ESR 19 mm/hr (0-20); HCT 39.6 % (40.0-50.0); HGB 13.6 g/dL (13.5-17.5); Immature Grans % 0.9 %; MCH 32.8 pg (27.0-33.0); MCHC 34.3 % (32.0-36.0); MCV 95 fL (80-95); MPV 9.1 fL (8.0-11.0); Platelet Count 262 10^3/uL (130-400); RBC 4.15 10^6/uL (4.36-5.78); RDW 14.3 % (11.8-14.1); RDW-SD 49.4 fL; WBC 11.88 10^3/uL (4.4-10.8)
--- NOTE | 2024-11-24 17:51 | W.ED.GENAD ---
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 PCP - [facility]. Pt aware of conflict with another medication he is taking, doing well with both meds. naproxen sodium [Aleve] 220 mg tablet 220 mg PO BID PRN lorazepam 0.5 mg tablet 0.5 mg PO QHS PRN nortriptyline 50 mg capsule 100 mg PO DAILY albuterol sulfate [Ventolin HFA] 90 mcg/actuation HFA aerosol inhaler 2 puff inhalation Q4H PRN (Reason: Shortness Of Breath) ergocalciferol (vitamin D2) 1,250 mcg (50,000 unit) capsule 1,250 mcg PO QWEEK acetaminophen [Tylenol Extra Strength] 500 mg tablet 500 mg PO Q6H PRN HPI General Mode of arrival: ambulatory. Date/Time Provider Initiated Documentation: 11/24/24 16:41. Limitations to Documentation: no limitations. Information obtained by: patient, family and old records reviewed. HPI Narrative: This is a 64-year-old male patient with a past medical history significant for metastatic bladder cancer, status post radical cystectomy, history of radiculopathy with some left sided sensory deficits starting on Friday, now presenting with fecal incontinence. The patient reports that on Friday he noticed that he was having numbness in his left sided buttock, left testicle, and was started on a steroid burst pack by his outpatient providers. Today he felt like he needed to go pass a stool, sat on the toilet and states that he had numbness in his anus and did not realize that he had passed the stool until he heard the splash in the toilet. He states that he has not noticed any new weakness, and has been able to ambulate. No fevers or chills, no trauma reported. No change in the quality of his urine, no abdominal pain. Eating and drinking typically for him. Had a recent PET scan that did show metastases to the thyroid, lung, and lymph nodes. No known bony metastases per patient Related Data Home Medications ?Medication ?Instructions ?Recorded ?Confirmed albuterol sulfate 90 mcg/actuation 2 puff inhalation Q4H PRN 12/11/21 11/24/24 aerosol inhaler (Ventolin HFA) Shortness Of Breath acetaminophen 500 mg tablet 500 mg PO Q6H PRN 05/20/24 11/24/24 (Tylenol Extra Strength) ergocalciferol (vitamin D2) 1,250 1,250 mcg PO QWEEK 05/20/24 11/24/24 mcg (50,000 unit) capsule tramadol 50 mg tablet 50 mg PO Q6H PRN 06/22/24 11/24/24 nortriptyline 50 mg capsule 100 mg PO DAILY 09/29/24 11/24/24 lorazepam 0.5 mg tablet 0.5 mg PO QHS PRN 11/18/24 11/24/24 naproxen sodium 220 mg tablet 220 mg PO BID PRN 11/18/24 11/24/24 (Aleve) Allergies Allergy/AdvReac Type Severity Reaction Status Date / Time atropine sulfate Allergy Severe noted in Uncoded 11/24/24 16:39 referral, no reaction noted by referring office General Stated Complaint: GenMedical RICCO: 3 Exam Narrative Exam Narrative: Gen: awake and alert, in no apparent distress. Appears well nourished. HEENT: PERRL, External ears and nose normal, mucous membranes moist. Neck: Supple, full range of motion, no observable masses Lungs: No increased work of breathing CV: Heart with regular rate and rhythm. Strong and symmetrical radial pulses. Abdomen: Soft, nondistended, non-tender to palpation. No rigidity, rebound tenderness, or guarding. Urostomy in place with clear yellow urine MSK: No joint swelling, no redness. Full ROM without limitation, no external traumatic findings. No midline back tenderness to the T or L-spine, no step-offs Skin: No rashes or lesions to visualized skin. Normal color, warm, and dry. Neuro: Cranial nerves II-XII intact and symmetrical bilaterally. 5/5 strength in all muscle groups x4 extremities. The patient has loss of sensation over the left testicle, left inner buttock, and overlying the anus. Ambulates with steady gait. Rectal tone slightly weak but preserved Psych: Appropriate for situation. Course Vital Signs Vital signs: Vital Signs Temperature 36.5 C 11/24/24 16:33 Pulse 118 H 11/24/24 16:33 Respiratory Rate 18 11/24/24 16:33 Blood Pressure 181/115 H 11/24/24 16:33 Pulse Oximetry 97 11/24/24 16:33 Temperature 36.5 C 11/24/24 16:33 Temperature Source Temporal Artery Scan 11/24/24 16:33 Pulse 118 H 11/24/24 16:33 Respiratory Rate 18 11/24/24 16:33 Respiratory Effort Normal, Non-Labored 11/24/24 16:59 Respiratory Depth Normal 11/24/24 16:59 Respiratory Pattern Normal 11/24/24 16:59 Blood Pressure 181/115 H 11/24/24 16:33 Pulse Oximetry 97 11/24/24 16:33 Oxygen Delivery Method Room Air 11/24/24 16:33 Oxygen Flow Rate 0 11/24/24 16:33 Pain Level 2 11/24/24 16:33 Lab/Test Results Lab/Test Results: Laboratory Tests Range/Units 11/24/24 17:34 WBC (4.4-10.8) 10^3/uL 11.88 H RBC (4.36-5.78) 10^6/uL 4.15 L Hgb (13.5-17.5) g/dL 13.6 Hct (40.0-50.0) % 39.6 L MCV (80-95) fL 95 MCH (27.0-33.0) pg 32.8 MCHC (32.0-36.0) % 34.3 RDW (11.8-14.1) % 14.3 H Plt Count (130-400) 10^3/uL 262 MPV (8.0-11.0) fL 9.1 Immature Gran % % 0.9 Neutrophils % % 89.8 Lymphocytes % % 4.0 Monocytes % % 5.0 Eosinophils % % 0.1 Basophils % % 0.2 Nucleated RBC % (0.0-0.3) % 0.0 Absolute Neutrophils (1.2-6.7) 10^3/uL 10.67 H Absolute Lymphocytes (1.2-3.4) 10^3/uL 0.48 L Absolute Monocytes (0.1-0.8) 10^3/uL 0.59 Absolute Eosinophils (0.0-0.7) 10^3/uL 0.01 Absolute Basophils (0.0-0.2) 10^3/uL 0.02 ESR (0-20) mm/hr 19 Medical Decision Making This is a 64-year-old male patient presenting for evaluation of fecal incontinence, numbness in the saddle region on the left, in the setting of known metastatic cancer. Differential includes but is not limited to cauda equina, spinal cord compression due to metastatic disease, considered spinal epidural abscess and hematoma though the patient does not take anticoagulant medications and does not have a fever. Considered transverse myelitis, spinal nerve root compression. I am reassured by the patient's preserved strength though his sensory exam is quite concerning. Given his history of metastatic disease we will provide the patient with a dose of 16 mg IV dexamethasone, as well as his home p.o. Ativan for agitation associated with steroid use. I will obtain laboratory studies to include CBC, CMP, magnesium, ESR, CRP, and troponin. Unfortunately, MRI is not available this evening, and so we will obtain a CT T and L-spine with and without contrast - I independently interpreted the laboratory studies, which show no significant leukocytosis, anemia, or thrombocytopenia. The chemistry panel is without evidence of electrolyte abnormality, kidney dysfunction, or liver injury. ESR and CRP are not significantly elevated. CT scans obtained and reviewed by myself and discussed with the radiologist. The patient has evidence of his known parapelvic mass, cavitary lung mass, but has no new masses or other obvious compressive pathology in the T or L-spine. I did discuss this case with the spine team at [facility], who feel that the risk of cauda equina is very low. They do recommend urgent MRI which could be performed at this facility in the morning. They do not recommend ongoing steroids. I discussed this patient with the hospitalist who is graciously accepted this patient for admission to their service for MRI in the morning and further consultation with urology or oncology pending results of that imaging study. Remained hemodynamically appropriate while under my care. 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 History of knee surgery History of fusion of cervical spine Social History Smoking/Tobacco Use Status: Current every day Tobacco Type: pipe Smoking risk assessment performed?: Yes Alcohol Intake: current Alcohol Intake frequency: a few times a week Alcohol type: beer and hard liquor Substance use type: does not use Housing: house Current gender identity: male Do you feel safe at home: Yes (CASSANDRA/lack of privacy.) Do you feel safe in your relationship?: Yes
[2024-11-24 18:02] LABS: ALT 44 U/L (16-63); AST 21 U/L (15-37); Albumin 3.5 g/dL (3.4-5.0); Alkaline Phosphatase 94 U/L (46-116); Anion Gap 12.3 mmol/L (3-11); BUN 17 mg/dL (7-18); Bilirubin, Total 0.4 mg/dL (0.2-1.0); C-Reactive Protein 0.94 mg/dL (<or=0.5); CO2 21.7 mmol/L (21.0-32.0); Calcium 8.9 mg/dL (8.5-10.1); Chloride 105 mmol/L (98-107); Estimated GFR 60.96 (mL/min/1.73m2); Glucose 219 mg/dL (74-106); Magnesium 1.9 mg/dL (1.8-2.4); Potassium 3.9 mmol/L (3.5-5.1); Sodium 139 mmol/L (136-145); Total Protein 7.0 g/dL (6.4-8.2); Troponin I 10 ng/L (<or=76)
[2024-11-24] MEDS: Dexamethasone 10 MG/ML VIAL 16 MG IVP (18:10)
[2024-11-24] MEDS: LORazepam 0.5 MG TAB PO (18:11)
[2024-11-24] MEDS: Normal Saline - Diluent 50 ML VIAL IJ (18:13)
[2024-11-24] MEDS: Omnipaque 350 MG/ML 100 ML BTL IJ (18:13)
[2024-11-24] MEDS: Normal Saline Flush 10 ML SYR IVP (18:15)
[2024-11-24 19:06] LABS: Troponin I 12 ng/L (<or=76)
--- NOTE | 2024-11-24 22:37 | W.PM.HP.N ---
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: Status: Acute Assessment and plan: Recurrence, unclear what year was initial diagnosis Care goal per oncology notes is palliative Discussed urostomy care with nursing staff (3) Radiculopathy, lumbar region: Status: Acute Assessment and plan: Chronic, patient sees pain specialist, last clinic visit Nov 18 Patient is concerned this is the root cause of the current numbness He has had epidural steroid trestment in the past, no current treatment due to steroids (4) Steroid-induced hyperglycemia: Status: Acute Assessment and plan: No history of diabetes Steroids vs immunomodulators His regimen is enfortumab vedotin-EJFV / pembrolizumab; the latter has diabetes as a noted side effect No intervention at this time History of Present Illness History of Present Illness Chief Complaint: loss of sensation Narrative: Jef Pearson is a 64 year old man presenting November 24 with anal numbness. He recently started immunotherapy and steroids for recurrence and metastases of bladder cancer. He does not have a bladder. He has a history of lumbar radiculopathy and he reports that he has a narrowing of the bone in his lumbar spine. He sees a pain specialist who noted on November 18 that his pain was poorly controlled and that he was on a high dose of steroids. Mr. Pearson noticed left-side buttock, upper leg and groin numbness on FridayNov 21. His oncologist started him on a steroid burst pack. Prior to November 24 arrival he felt tenesmus and went to the toilet, but did not feel any stool pass until he heard a splash. He noticed no other new symptoms of weakness or numbness today. He is ambulating without difficulty. He denies chest pain, shortness of breath, abdominal pain, N/V/D. No change in PO intake. PMH includes bladder cancer s/p total cystectomy and ureteral diversion, with new recurrence and known mets to the lungs, pelvis and thyroid, lumbar radiculopathy, COPD, chronic pain In the ED he was tachycardic HR 118, hypertensive 181/115, otherwise vitals unremarkable. Rectal tone intact. CT thoracic spine showed previous cervical fusion at C6-7, RLL cavitation 18mm. CT lumbar spine showed 5 cm thick walled para-cystic structure and multilevel mild disc disease with mild/moderate bilateral foraminal stenosis at L5-S1. These findings were reviewed with ortho spine at [facility] who advised MRI; symptoms and timeline would be atypical for cauda equina or similar. 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 History of knee surgery History of fusion of cervical spine Social History Smoking/Tobacco Use Status: Current every day Tobacco Type: pipe Smoking risk assessment performed?: Yes Alcohol Intake: current Alcohol Intake frequency: a few times a week Alcohol type: beer and hard liquor Substance use type: does not use Housing: house Current gender identity: male Do you feel safe at home: Yes (CASSANDRA/lack of privacy.) Do you feel safe in your relationship?: Yes Meds Allergies and Home Medications Allergies Allergy/AdvReac Type Severity Reaction Status Date / Time atropine sulfate Allergy Severe noted in Uncoded 11/24/24 16:39 referral, no reaction noted by referring office Home Medications ?Medication ?Instructions ?Recorded ?Confirmed ?Type albuterol sulfate 90 mcg/actuation 2 puff inhalation Q4H PRN 12/11/21 11/24/24 History aerosol inhaler (Ventolin HFA) Shortness Of Breath acetaminophen 500 mg tablet 500 mg PO Q6H PRN 05/20/24 11/24/24 History (Tylenol Extra Strength) ergocalciferol (vitamin D2) 1,250 1,250 mcg PO QWEEK 05/20/24 11/24/24 History mcg (50,000 unit) capsule tramadol 50 mg tablet 50 mg PO Q6H PRN 06/22/24 11/24/24 History nortriptyline 50 mg capsule 100 mg PO DAILY 09/29/24 11/24/24 History lorazepam 0.5 mg tablet 0.5 mg PO QHS PRN 11/18/24 11/24/24 History naproxen sodium 220 mg tablet 220 mg PO BID PRN 11/18/24 11/24/24 History (Aleve) Exam Narrative Exam Narrative: General: This is a very pleasant, obese man in no acute distress HEENT: Normocephalic, atraumatic CV: RRR Resp: CTAB Abd: protruberant, nontender, +NBS. Suprapubic urostomy site c/d/i. deferred to ED exam MSK: voluntary motion x4 Neuro: awake, alert, CN II-XII intact Results Labs 11/24/24 17:34 11/24/24 17:34 Labs: Laboratory Results - last 24 hr 11/24/24 11/24/24 11/24/24 17:34 18:37 20:09 WBC 11.88 H RBC 4.15 L Hgb 13.6 Hct 39.6 L MCV 95 MCH 32.8 MCHC 34.3 RDW 14.3 H Plt Count 262 MPV 9.1 Immature Gran % 0.9 Neutrophils % 89.8 Lymphocytes % 4.0 Monocytes % 5.0 Eosinophils % 0.1 Basophils % 0.2 Nucleated RBC % 0.0 Absolute Neutrophils 10.67 H Absolute Lymphocytes 0.48 L Absolute Monocytes 0.59 Absolute Eosinophils 0.01 Absolute Basophils 0.02 ESR 19 Sodium 139 Potassium 3.9 Chloride 105 Carbon Dioxide 21.7 Anion Gap 12.3 H BUN 17 Creatinine 1.3 Est GFR (CKD-EPI 2020) 60.96 Glucose 219 H Calcium 8.9 Magnesium 1.9 Total Bilirubin 0.4 AST 21 ALT 44 Alkaline Phosphatase 94 Troponin I 10 12 Cancelled C-Reactive Protein 0.94 H Total Protein 7.0 Albumin 3.5 Last Vital Signs Temp 36.5 C 11/24/24 16:33 Pulse 108 H 11/24/24 19:50 Resp 18 11/24/24 16:33 BP 150/90 H 11/24/24 19:45 Pulse Ox 97 11/24/24 19:50 Time Spent Time spent with Patient: 40-54 minutes Time was spent: preparing to see the patient(eg.review tests), obtaining and/or reviewing separately otained hiistory, ordering medications,tests, procedures, referring, communicating with other health healthcare corporate account director, indepentently interpreting results, counseling the patient and care coordination
--- NOTE | 2024-11-25 01:05 | W.PC.ACHO ---
Registration Status: ADM JAZZY Primary Language: Preferred Language: ED Information & Data Chief Complaint GenMedical 11/24/24 17:54 Triage Note pt with numbness to 11/24/24 16:33 testicles and from center of but to left side pt was started on steroid medrol dose pack Medical / Surgical History (Last Reviewed 11/18/24 @ 13:20 by Margarita Aguirre, RN) Heart disease Cervical radiculopathy Obesity Vitamin D deficiency Lipoprotein deficiency disorder Snoring SAMIA (obstructive sleep apnea) Upper respiratory infection Swelling of lower limb H/O skin pruritus Blood in urine Thyroid function test abnormal Pain in scrotum Intermittent microscopic hematuria Edema of lower extremity Hyperlipidemia 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 Left flank pain Lumbosacral radiculopathy Status post chemotherapy Bladder cancer Dyspnea on exertion Erectile dysfunction Hyperplastic colon polyp GERD (gastroesophageal reflux disease) Chronic cough Nicotine addiction Pre-diabetes Low serum HDL Hypertriglyceridemia Metabolic syndrome Vision changes (Last Reviewed 11/18/24 @ 13:20 by Margarita Aguirre, MADELEINE) S/P cervical spinal fusion History of appendectomy History of colonoscopy History of ankle surgery History of knee surgery History of fusion of cervical spine Most Recent Vital Signs Temperature 35.8 C L 11/24/24 23:41 Temperature Source Temporal Artery Scan 11/24/24 16:33 Pulse 102 H 11/24/24 23:41 Pulse Rhythm Regular 11/24/24 23:41 Respiratory Rate 18 11/24/24 23:41 Respiratory Effort Normal 11/24/24 23:41 Respiratory Depth Normal 11/24/24 23:41 Respiratory Pattern Normal 11/24/24 23:41 Blood Pressure 155/94 H 11/24/24 23:41 Blood Pressure Mean 110 11/24/24 19:45 Pulse Oximetry 98 11/24/24 23:41 Oxygen Delivery Method Room Air 11/24/24 23:41 Oxygen Flow Rate 0 11/24/24 23:41 Pain Level 0 11/24/24 23:41 Allergies atropine sulfate Allergy (Severe, Uncoded 11/24/24 16:39) noted in referral, no reaction noted by referring office Active Medications Generic Name Dose Route Start Last Admin Trade Name Freq PRN Reason Stop Dose Admin Iohexol 100 ml 11/24/24 18:15 11/24/24 18:13 Omnipaque 350 Mg/Ml 100 Ml Btl IJ 12/24/24 23:59 100 ml DIRECTED MARINA Administration Sodium Chloride 0 ml 11/24/24 20:00 11/24/24 18:15 Normal Saline Flush 10 Ml Syr IVP 10 ml BID MARINA Administration Sodium Chloride 50 ml 11/24/24 18:15 11/24/24 18:13 Normal Saline - Diluent 50 Ml Vial IJ 50 ml DIRECTED MARINA Administration IV IV Catheter Type [Right Peripheral IV Antecubital] IV Catheter Gauge [Right 18 Antecubital] Diet Orders Category Date Time Status Regular/Normal [DIET] Nutrition 11/24/24 Dinner Active Diagnostics 11/25/24 11/24/24 11/24/24 Range/Units 05:35 20:09 18:37 WBC Pending (4.4-10.8) 10^3/uL RBC Pending (4.36-5.78) 10^6/uL Hgb Pending (13.5-17.5) g/dL Hct Pending (40.0-50.0) % MCV Pending (80-95) fL MCH Pending (27.0-33.0) pg MCHC Pending (32.0-36.0) % RDW Pending (11.8-14.1) % Plt Count Pending (130-400) 10^3/uL MPV Pending (8.0-11.0) fL Immature Gran % Pending % Neutrophils % Pending % Lymphocytes % Pending % Monocytes % Pending % Eosinophils % Pending % Basophils % Pending % Nucleated RBC % (0.0-0.3) % Absolute Neutrophils Pending (1.2-6.7) 10^3/uL Absolute Lymphocytes Pending (1.2-3.4) 10^3/uL Absolute Monocytes Pending (0.1-0.8) 10^3/uL Absolute Eosinophils Pending (0.0-0.7) 10^3/uL Absolute Basophils Pending (0.0-0.2) 10^3/uL ESR (0-20) mm/hr Sodium Pending (136-145) mmol/L Potassium Pending (3.5-5.1) mmol/L Chloride Pending (98-107) mmol/L Carbon Dioxide Pending (21.0-32.0) mmol/L Anion Gap Pending (3-11) mmol/L BUN Pending (7-18) mg/dL Creatinine Pending (0.70-1.30) mg/dL Est GFR (CKD-EPI 2020) Pending (mL/min/1.73m2) Glucose Pending (74-106) mg/dL Calcium Pending (8.5-10.1) mg/dL Magnesium Pending (1.8-2.4) mg/dL Total Bilirubin Pending (0.2-1.0) mg/dL AST Pending (15-37) U/L ALT Pending (16-63) U/L Alkaline Phosphatase Pending (46-116) U/L Troponin I Cancelled 12 (<or=76) ng/L C-Reactive Protein (<or=0.5) mg/dL Total Protein Pending (6.4-8.2) g/dL Albumin Pending (3.4-5.0) g/dL 11/24/24 Range/Units 17:34 WBC 11.88 H (4.4-10.8) 10^3/uL RBC 4.15 L (4.36-5.78) 10^6/uL Hgb 13.6 (13.5-17.5) g/dL Hct 39.6 L (40.0-50.0) % MCV 95 (80-95) fL MCH 32.8 (27.0-33.0) pg MCHC 34.3 (32.0-36.0) % RDW 14.3 H (11.8-14.1) % Plt Count 262 (130-400) 10^3/uL MPV 9.1 (8.0-11.0) fL Immature Gran % 0.9 % Neutrophils % 89.8 % Lymphocytes % 4.0 % Monocytes % 5.0 % Eosinophils % 0.1 % Basophils % 0.2 % Nucleated RBC % 0.0 (0.0-0.3) % Absolute Neutrophils 10.67 H (1.2-6.7) 10^3/uL Absolute Lymphocytes 0.48 L (1.2-3.4) 10^3/uL Absolute Monocytes 0.59 (0.1-0.8) 10^3/uL Absolute Eosinophils 0.01 (0.0-0.7) 10^3/uL Absolute Basophils 0.02 (0.0-0.2) 10^3/uL ESR 19 (0-20) mm/hr Sodium 139 (136-145) mmol/L Potassium 3.9 (3.5-5.1) mmol/L Chloride 105 (98-107) mmol/L Carbon Dioxide 21.7 (21.0-32.0) mmol/L Anion Gap 12.3 H (3-11) mmol/L BUN 17 (7-18) mg/dL Creatinine 1.3 (0.70-1.30) mg/dL Est GFR (CKD-EPI 2020) 60.96 (mL/min/1.73m2) Glucose 219 H (74-106) mg/dL Calcium 8.9 (8.5-10.1) mg/dL Magnesium 1.9 (1.8-2.4) mg/dL Total Bilirubin 0.4 (0.2-1.0) mg/dL AST 21 (15-37) U/L ALT 44 (16-63) U/L Alkaline Phosphatase 94 (46-116) U/L Troponin I 10 (<or=76) ng/L C-Reactive Protein 0.94 H (<or=0.5) mg/dL Total Protein 7.0 (6.4-8.2) g/dL Albumin 3.5 (3.4-5.0) g/dL Intake and Output - 24 Hour Total 11/24/24 16:29 thru 11/24/24 23:41 Weight 113.4 kg Other: Urine Appearance Cloudy Falls Risk Assessment History of Falls No History 11/24/24 23:41 Contributing Factors Confusion 11/24/24 16:59 Ambulatory Aids Independent 11/24/24 23:41 Tubes/Lines None 11/24/24 23:41 Gait Evaluation No gait disturbance 11/24/24 23:41 Cognition No cognitive impairment 11/24/24 23:41 Fall Total Score 0 11/24/24 23:41 Level of Risk Standard/Low Risk 11/24/24 23:41 v v v v v v v v v Sending and/or Receiving Nurses: Please use comment section below to note any information pertinent to the patient hand-off not included above. Information / Comments: Report received from: Report from ED RN. All questions answered. Pt to floor via W/C AAOx4 . Oriented to room made comfortable.
[2024-11-25] MEDS: traMADol 50 MG TAB PO ×2 (05:32→15:45)
[2024-11-25 06:24] LABS: Abs Immature Grans 0.12 10^3/uL (0.0-0.06); HCT 39.8 % (40.0-50.0); HGB 13.8 g/dL (13.5-17.5); Immature Grans % 1.0 %; MCH 33.5 pg (27.0-33.0); MCHC 34.7 % (32.0-36.0); MCV 97 fL (80-95); MPV 9.5 fL (8.0-11.0); Platelet Count 269 10^3/uL (130-400); RBC 4.12 10^6/uL (4.36-5.78); RDW 14.6 % (11.8-14.1); RDW-SD 51.6 fL; WBC 11.89 10^3/uL (4.4-10.8)
[2024-11-25 06:44] LABS: ALT 40 U/L (16-63); AST 18 U/L (15-37); Albumin 3.4 g/dL (3.4-5.0); Alkaline Phosphatase 85 U/L (46-116); Anion Gap 11.5 mmol/L (3-11); BUN 16 mg/dL (7-18); Bilirubin, Total 0.3 mg/dL (0.2-1.0); CO2 22.5 mmol/L (21.0-32.0); Calcium 9.1 mg/dL (8.5-10.1); Chloride 105 mmol/L (98-107); Estimated GFR 55.78 (mL/min/1.73m2); Glucose 218 mg/dL (74-106); Magnesium 2.0 mg/dL (1.8-2.4); Potassium 3.9 mmol/L (3.5-5.1); Sodium 139 mmol/L (136-145); Total Protein 6.8 g/dL (6.4-8.2)
--- NOTE | 2024-11-25 07:00 | DI.MRI_ITS ---
Exam(s) MR THORACIC SPINE WO/W EXAM: MR THORACIC SPINE WO/W CLINICAL HISTORY: metastatic cancer query cauda equina TECHNIQUE: Multiplanar multisequence MRI of the thoracic spine was performed on 1.5 javier unit with both pre and post contrast infused sequences. Contrast injected was 20 mL Dotarem intravenous COMPARISON: Thoracic spine CT scan performed 11/24/2024. FINDINGS: OSSEOUS: There are no acute appearing thoracic vertebral fractures. No listhesis. There are no ominous osseous lesions in the thoracic vertebrae. There is anterior fusion plate evident at C6-7 level seen in the peripheral aspect of the field of view of this thoracic spine study. THORACIC SPINAL CORD: There is no evidence of mass at the conus medullaris. The position of the conus medullaris is normal level. However, there is enlargement of the central spinal channel (syringomyelia) evident from upper T5 level down to the upper T7 level. Maximum diameter of the enlarged canal at this level is 1 mm. There is no mass nor atrophy of the cord at this level. There is no abnormal enhancement in the cord. SIGNIFICANT INDIVIDUAL LEVEL FINDINGS: There is a small right paracentral disc protrusion at T7-T8 level which mildly indents the anterior thecal sac but not the spinal cord at this level. No other disc protrusions evident in the thoracic spinal column. No evidence of central spinal canal stenosis nor foraminal stenosis. There is no abnormal enhancement within the epidural space nor within the thecal sac. PARASPINAL TISSUES: No significant masses nor fluid collections evident. IMPRESSION: 1. 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 There is no evidence of focal cord swelling nor focal cord atrophy nor enhancing mass in the cord and epidural space. No evidence of abnormality at the conus medullaris. 2. There is a small right paracentral disc protrusion at the T7-8 level. This slightly indents the thecal sac but not the spinal cord and there is no significant canal stenosis at this level evident nor evidence of foraminal stenosis at this level. DATA REPOSITORY:
--- NOTE | 2024-11-25 07:00 | DI.MRI_ITS ---
Exam(s) MR LUMBAR SPINE WO/W EXAM: MR LUMBAR SPINE WO/W CLINICAL HISTORY: metastatic cancer query cauda equina. TECHNIQUE: Multiplanar multisequence MRI of the Lumbar spine was performed on 1.5 javier unit with both pre and post contrast infused sequences Intravenous contrast injected was 20 mL Dotarem. COMPARISON: MR MR LUMBAR SPINE WO from 05/12/[address] LUMBAR SPINE W from 11/24/2024 FINDINGS: Conus medullaris is at normal level. There is no evidence of conus mass nor subjacent clumping of intrathecal nerve roots to suggest arachnoiditis. No abnormal masses nor focal enhancement in the cauda equina. The distal thecal sac appears unremarkable.There is no evidence of Tarlov intrasacral cysts nor other significant findings within the sacral canal Bones:There are no fractures nor ominous osseous lesions in the lumbar vertebral bodies and visualized sacrum. There are Schmorl's node invaginations in superior endplate of L3 and L4, not associated with surrounding bone edema to suggest that these are acute. With respect to the individual levels... T12-L1: Unremarkable L1-2: Preserved disc height. There is anterior osseous lipping. Posteriorly there is bright signal in the posterior subligamentous annulus consistent with small tear but there is no disc herniation at this level. Central canal dimensions are within normal limits and there is no foraminal stenosis at this level. Facet joints appear unremarkable. There is no abnormal enhancement at this level. L2-3: Preserved disc height. Anterior osseous lipping. Posteriorly there is no disc herniation or central canal stenosis. No foraminal stenosis. Facet joints unremarkable. No abnormal enhancement at this level. L3-4: Normal disc height. No disc herniation or central canal stenosis.No foraminal stenosis.No facet arthropathy. No abnormal enhancement at this level. L4-5: Normal disc height. Mild annular bulging without a significant disc herniation. Central canal dimensions are lower normal. Facet joints unremarkable. There is no significant foraminal stenosis. There is no abnormal enhancement at this level. L5-S1: Mild disc space narrowing. There is a central-left paracentral disc protrusion at this level superimposed upon broad annular bulging. The disc protrusion extends posteriorly 5 mm with only minimal impression upon the thecal sac. However, it does extend into the floor of the exiting left neural foramen resulting in mild left-sided foraminal stenosis. There is no significant foraminal stenosis on the opposite-right side. There is no abnormal enhancement at this level. Facet joints at this level appear unremarkable. Soft tissues: paraspinal soft tissues appear unremarkable. IMPRESSION: 1. No evidence of significant abnormality at the conus medullaris nor within the cauda equina, as per request. Please note that there is syringomyelia noted in the thoracic spinal cord as discussed on the thoracic spine MRI dictation today. 2. There is a central-left paracentral disc herniation at the L5-S1 level as described above. This disc protrusion extends into the floor of the exiting left neural foramen, with mild left-sided foraminal stenosis evident. 3. There is no abnormal enhancement in the lumbosacral spinal column. No evidence of metastatic disease. Reports of these MRIs were called by myself to hospitalist 11/25/2024 at 3:05 p.m. DATA REPOSITORY:
[2024-11-25 07:57] VITALS: BP 149/96; PULSE 106; RESP 16; TEMP 36; O2SAT 98
[2024-11-25] MEDS: Normal Saline Flush 10 ML SYR IVP ×3 (08:24→20:30)
--- NOTE | 2024-11-25 09:17 | INITIAL_ITS ---
Date of service: 11/25/24 Time of Service: 13:56 Care Management Initial Assmt Initial Assessment Reason for Hospitalization: bowel incontinence Functional Status/Living Situation Patient Presentation: CM met with Jef, who prefers to go by Evans, while he was sitting up in bed and visiting with his , Oriana. Jef presented to the ED yesterday evening with some left sided sensory deficits starting on Friday, now presenting with fecal incontinence. Per report, Evans underwent a PET scan at [facility] on September 29. He was scheduled to begin chemotherapy on November 09, 2024, and to follow up with Urology on November 17, 2024. Given his recent changes in condition and new diagnosis, CM has requested a palliative care consult to assist in establishing goals of care and developing a symptom management regimen; Palliative will see this patient later today. An MRI was completed this morning, though results are still pending. Per provider, [facility] spinal surgery is being consulted. Evans was pleasant and willing to engage in conversation. Evans resides in [place] with his , Oriana, and is independent at baseline, including driving. He is not currently connected with any community resources and states he does not feel the need for them at this time. During the visit, Evans completed Health Care Agent forms, naming Oriana as his primary agent and his sister, Kalye, as the alte rnate. Evans voiced concerns regarding the potential cost of his hospitalization, expressing uncertainty about whether his insurance will cover it. CM explained that assistance is available and that CM will communicate with the insurance provider to support the medical necessity of his stay. A patient assistance application was provided in the event he receives a bill. CM will continue to follow. Town of Residence: [place] Resides with: Spouse Significant Other/Family: Out of area (has sister in [place], and some local family but Evans does not consider then close. ) Natural Supports: and some of Oriana's family. Employment Status: Employed Instrumental Activities of Daily Living (ADLs): Independent Activities/Hobbies/SocialSupport: Enjoys reading Medications Medication Management: No Issues/Barriers identified Physical Functioning/Mobility Assistive Device: none at this time Advance Directives Advance Directives: Do you have an Advance Directive: Y Today, 13:35 AD On File at [facility]: Y Today, 13:35 Date Asked 11/25/24 Today, 13:35 AD Date Reviewed 11/25/24 Today, 13:35 COLST On File at [facility] COLST Date Scanned Comment: Evans does not have advance directive but [facility] form was completed with the patient 11/25/24. Code Status Resuscitation Status Full Code Portal Pt does not currently have a portal and education provided: Yes Insurance Coverage/Financial Issues Insurance: [facility] - [id number] Financial Issues: Patient was given Patient Assistance Application form Care Team Visit Care Team Role Provider Type Vibha Ma APRN MD [facility] STAFF PHYSICIAN Margareth Odell Primary Care Provider NON-[facility] STAFF PHYSICIAN Diann Wray MD Emergency Provider [facility] STAFF PHYSICIAN Jitendra Elena MD Admit Provider [facility] STAFF PHYSICIAN Attending Provider Discharge Potential Discharge Needs: Consult Consult Services Needed: Palliative and PCP F/U Appt Anticipated Barriers to Discharge: None Identified Patient/Family Education Needs: Review discharge instructions, discuss Ask Me Three Transportation: Private vehicle Plan: Anticipate Jef will be discharged home once medically ready. It is recommended he follow up with his community partners and continue per his plan of care. Jef will transport via private vehicle. Social Determinants of Health Screening Social Determinants of health last assessed in clinic: 11/25/24 Will the Patient Participate in the Screening?: Yes Do you worry about having a steady place to live?: yes What is your living situation today?: I have housing today, but am worried about losing it Problems where you live: no known problems In the past 12 months, have you had to go without electric, gas, oil or water in your home?: no 1. Within the past 12 months, we worried whether our food would run out before we got money to buy more.: Never true 2. Within the past 12 months, the food we bought just didn't last and we didn't have money to get more.: Never true Has lack of transportation kept you from medical appointments or from doing things needed for daily living?: no Has anyone in your life made you feel unsafe or unsupported?: no How hard is it for you to pay for the very basics like food, housing, medical care, and heating? Would you say it is:: Not hard at all Do you want help finding or keeping work or a job?: I do not need or want help If for any reason you need help with day-to-day activities such as bathing, preparing meals, shopping, managing finances, etc., do you get the help you need?: I don?t need any help How often do you feel lonely or isolated from those around you?: Never Do you speak a language other than Swedish at home?: No Does the patient want assistance with any of the above?: No Health Related Social Needs Health related social needs: housing instability, housed, with risk of homelessness (Z59.811) PFSH All Active Problems Metastasis from bladder cancer (Acute) ACP (advance care planning) (Acute) Palliative care encounter (Acute) Steroid-induced hyperglycemia (Acute) 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 History of knee surgery History of fusion of cervical spine Social History Smoking/Tobacco Use Status: Current every day Tobacco Type: pipe Smoking risk assessment performed?: Yes Alcohol Intake: current Alcohol Intake frequency: a few times a week Alcohol type: beer and hard liquor Substance use type: does not use Housing: house Current gender identity: male Do you feel safe at home: Yes (CASSANDRA/lack of privacy.) Do you feel safe in your relationship?: Yes Readmission Within the Past 30 Days Yes or No: No
--- NOTE | 2024-11-25 09:28 | PGE_ITS ---
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 No evidence of metastasis on imaging. Consult with oncology re: findings in AM prior to discharge: [facility] oncologist Dr. Mack Daily oral decadron dosing Plan to discharge home with decadron oral taper, lantus insulin while on steroids , and short course of protonix. 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: Status: Acute Assessment and plan: Recurrence, unclear what year was initial diagnosis Care goal per oncology notes is palliative ongoing urostomy care Palliative care consultation then outpatient follow-up (3) Radiculopathy, lumbar region: Status: Acute Assessment and plan: Chronic, patient sees pain specialist, last clinic visit Nov 18 and as per point 1 Patient is concerned this is the root cause of the current numbness He has had epidural steroid treatment in the past, no current treatment due to ongoing weekly steroids as per [facility] (4) Steroid-induced hyperglycemia: Status: Acute Assessment and plan: No history of diabetes but mentioned pre-diabetes Steroids vs immunomodulators His regimen is enfortumab vedotin-EJFV / pembrolizumab; the latter has diabetes as a noted side effect Nutrition consult recommendation for lantus 10 units daily - ordered Glucs BID at d/c (5) Discharge planning issues: Status: Acute Assessment and plan: Discharge on Friday AM for outpatient appointment at 12:30 and 13:00 at [facility] Will need a glucometer on d/c - nutrition contacted for sensor Discussed with Dr. Yoon Subjective Subjective Patient reports: no new complaints, tolerating liquids well, tolerating a regular diet, voiding w/o difficulty, bowel movement and afebrile; denies diarrhea, nausea, vomiting or shortness of breath Exam Narrative Exam Narrative: Alert and oriented X4, no focal neurological deficit, ongoing left inner gluteal muscle and left anal numbness, clear lungs, S2,S2 regular, abdomen non- distended, soft , non-tender, moves all 4 ext., ambulatory in room independently Objective Last Vital Signs Temp 36 C L 11/25/24 07:57 Pulse 106 H 11/25/24 07:57 Resp 16 11/25/24 07:57 BP 149/96 H 11/25/24 07:57 Pulse Ox 98 11/25/24 07:57 Laboratory Results - last 24 hr 11/24/24 11/24/24 11/24/24 17:34 18:37 20:09 WBC 11.88 H RBC 4.15 L Hgb 13.6 Hct 39.6 L MCV 95 MCH 32.8 MCHC 34.3 RDW 14.3 H Plt Count 262 MPV 9.1 Immature Gran % 0.9 Neutrophils % 89.8 Lymphocytes % 4.0 Monocytes % 5.0 Eosinophils % 0.1 Basophils % 0.2 Nucleated RBC % 0.0 Absolute Neutrophils 10.67 H Absolute Lymphocytes 0.48 L Absolute Monocytes 0.59 Absolute Eosinophils 0.01 Absolute Basophils 0.02 ESR 19 Sodium 139 Potassium 3.9 Chloride 105 Carbon Dioxide 21.7 Anion Gap 12.3 H BUN 17 Creatinine 1.3 Est GFR (CKD-EPI 2020) 60.96 Glucose 219 H Calcium 8.9 Magnesium 1.9 Total Bilirubin 0.4 AST 21 ALT 44 Alkaline Phosphatase 94 Troponin I 10 12 Cancelled C-Reactive Protein 0.94 H Total Protein 7.0 Albumin 3.5 11/25/24 06:10 WBC 11.89 H RBC 4.12 L Hgb 13.8 Hct 39.8 L MCV 97 H MCH 33.5 H MCHC 34.7 RDW 14.6 H Plt Count 269 MPV 9.5 Immature Gran % 1.0 Neutrophils % 89.3 Lymphocytes % 4.0 Monocytes % 5.4 Eosinophils % 0.0 Basophils % 0.3 Nucleated RBC % 0.0 Absolute Neutrophils 10.62 H Absolute Lymphocytes 0.48 L Absolute Monocytes 0.64 Absolute Eosinophils 0.00 Absolute Basophils 0.04 ESR Sodium 139 Potassium 3.9 Chloride 105 Carbon Dioxide 22.5 Anion Gap 11.5 H BUN 16 Creatinine 1.4 H Est GFR (CKD-EPI 2020) 55.78 Glucose 218 H Calcium 9.1 Magnesium 2.0 Total Bilirubin 0.3 AST 18 ALT 40 Alkaline Phosphatase 85 Troponin I C-Reactive Protein Total Protein 6.8 Albumin 3.4 PAWSS Have you Been Recently Intoxicated or Drunk Within the Last 30 days?: No Have you Ever Experienced Previous Episodes of Alcohol Withdrawal?: No Have you ever Experienced Withdrawal Seizures?: No Have you ever Experienced Delirium Tremens(DT)s?: No Have you ever undergone Alcohol Rehabilitation Treatment (i.e, inpt ot outpatient treatment programs)?: No Have you ever Experienced Blackouts?: No Have you ever Combined Alcohol with other Downers within the last 90 days?: No Have you ever Combined Alcohol with any other Substance of Abuse during the last 90 days?: No Positive Blood Alcohol level on Presentation? [PCS.BAL]: No Evidence of Increased Autonomic Activity (i.e. HR>120, tremor, sweating, agitation, nausea)?: No Result: 0 Time Spent with Patient Time Spent with Patient: >50 minutes Time was spent: preparing to see the patient(eg.review tests), obtaining and/or reviewing separately otained hiistory, ordering medications,tests, procedures, referring, communicating with other health direct care worker, indepentently interpreting results, counseling the patient and care coordination
[2024-11-25] MEDS: Acetaminophen 325 MG TAB 650 MG PO (10:20)
[2024-11-25] MEDS: Gadoterate meglumine 20 ML SYRINGE IVP (11:56)
--- NOTE | 2024-11-25 15:30 | W.PALLCONSUL ---
Date of service: 11/25/24 Time of Service: 13:30 History of Present Illness Narrative: Mr. Krueger is a 64 y/o M currently hospitalized 2/2 anal numbness; PMHx sig for stage 4 recurrent metastatic bladder cancer (mets to lungs, pelvis, thyroid and LN), COPD, lumbar radiculopathy (s/p fusion 20+ years ago); present at bedside [facility] Course: presented to ED on 11/24 w/CC anal numbness; ED work up w/CT showing several spinal concerns, consult recommend MRI, admitted for MRI 11/25 AM, concern for bone mets vs chronic radiculopathy vs infection vs cauda equina; MRI was this morning, results pending, plan for ortho vs onc consult s/p results Evans agrees to an introductory visit with PC today. Oncology: f/b [facility] Dr Johnston; dx w/bladder cancer initially on 09/07/2022, he completed immunotherapy and scans came back clear initially, unfortunately he noticed a lump which scans showed a recurrence w/spread of disease, PET scan in August of this 3 w/mets in lung, pelvis, thyroid and LN, biopsy confirmed met to biopsy; started on a new immunotherapy a couple weeks ago w/high dose steroid. so far he has been tolerating new immunotherapy well w/o ADR, the steroid, dexamethasone 10mg qd has been more bothersome w/feeling wired and difficulty sleeping as a result, he reports he received 16mg last night and feels that is contributing to how he is feeling today Spine: long history of spine issues, cervical fusion around 20'darell years ago, s/p upper body weakness, resolved post fusion; aware of lumbar radiculopathy as well, f/b [facility], Dr Griffin, he was given a book on non-pharm techniques for pain management which he is optimistic about; does use tramadol PRN at home, so far during this stay has only required PRN apap Sleep: was given lorazepam for QHS use as sleep aid, only used x1 at home w/good effect; scheduled for sleep study tomorrow Social: Evans is a of the [employer] and [facility]; - Evans lives at home in [place] w/ [facility]; he has some siblings, most close w/sister Kaley who lives in [place] [facility] and works as a manager critical care at their hospital, he is grateful to have her expertise to help him - 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 He is aware he can always stop treatments if he wants - He already attends [facility] oncology support groups once monthly, he would like to be more connected w/folks w/similar cancers or 's with cancers, he feels he would be of support to them, this also provides him support - he is optimistic that his current issues are back/radiculopathy related in nature vs his cancer, in his mind both issues are separate at this time - he has never completed an AD, but does have a copy in home, finds it a bit overwhelming all together. he did complete a HCA earlier today w/CM, listed [facility] and sister Kaley as HCAs - he would like to cut back on medications as able, see if non-pharm techniques could also be utilized Assessment and Plan Assessment and plan (1) Bladder cancer: Assessment and plan: Primary: recurrent bladder cancer; initial dx 09/07/22 Secondary sites: lung, pelvis, thyroid, LN Treatment: palliative, Surgery: post cystectomy completed initial immunotherapy; recently started 2nd round immunotherapy s/p recurrence w/high dose steroids Re-staging response:?plan for repeat scans February; previous scans w/recurrence Followed-by: , [facility], Dr Johnston (2) Metastasis from bladder cancer: Status: Acute (3) Steroid-induced hyperglycemia: Status: Acute (4) Fecal incontinence: Status: Acute (5) Saddle anesthesia: Status: Acute Assessment and plan: MRI pending (6) Radiculopathy, lumbar region: Status: Acute (7) Cervical radiculopathy: (8) SAMIA (obstructive sleep apnea): Assessment and plan: scheduled for sleep study tomorrow (9) 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: Assessment and plan: pain currently controlled has PRN tramadol w/good effect previously (10) Palliative care encounter: Status: Acute Assessment and plan: PC will continue to follow shellie/Evans shared decision making to have RN call in 1 week to schedule f/u, plan for a special acception Friday 1pm office visit (11) ACP (advance care planning): Status: Acute Assessment and plan: reviewed current POC w/pending MRI results for appropriate consult post, ortho if radiculopathy related, onc if cancer related, he is optimistic it is related to his existing spinal disorders; plan for discharge today pending results, he is hopeful for this reviewed palliative care roll in his care moving forward, will plan for ongoing review/completion of AD documentation as appropriate, which he is agreeable to and happy to have assistance with this; HCA confirmed [facility], sister Kaley reviewed oncology history and current treatment plan reviewed oncology support groups, connection to [facility]; he would like connection to [facility] for additional opportunities/connections for be part of support groups for folks suffering with bladder cancer (or related) and/or 's with cancer, [facility] referral placed spent 20m w/ACP Review of Systems Narrative: as per HPI PFSH All Active Problems Metastasis from bladder cancer (Acute) ACP (advance care planning) (Acute) Palliative care encounter (Acute) Steroid-induced hyperglycemia (Acute) 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 History of knee surgery History of fusion of cervical spine Social History Smoking/Tobacco Use Status: Current every day Tobacco Type: pipe Smoking risk assessment performed?: Yes Alcohol Intake: current Alcohol Intake frequency: a few times a week Alcohol type: beer and hard liquor Substance use type: does not use Housing: house Current gender identity: male Do you feel safe at home: Yes (CASSANDRA/lack of privacy.) Do you feel safe in your relationship?: Yes Exam Narrative Exam Narrative: General: 64 y/o gentleman, lying in hosp bed, reading on arrival, at bedside HEENT: normocephalic, atraumatic, MMM, hearing grossly WNL Resp: even and unlabored, speaks full sentences w/o SOB; no audible wheeze, no cough Psych: appearance WNL, MS WNL, cooperative, pleasant, speech WNL, mood/affect congruent, thought process normal; insight good Results Last Vital Signs Temp 96.8 F L 11/25/24 07:57 Pulse 106 H 11/25/24 07:57 Resp 16 11/25/24 07:57 BP 149/96 H 11/25/24 07:57 Pulse Ox 98 11/25/24 07:57 Labs 11/25/24 06:10 11/25/24 06:10 Labs: Laboratory Results - last 24 hr 11/24/24 11/24/24 11/24/24 17:34 18:37 20:09 WBC 11.88 H RBC 4.15 L Hgb 13.6 Hct 39.6 L MCV 95 MCH 32.8 MCHC 34.3 RDW 14.3 H Plt Count 262 MPV 9.1 Immature Gran % 0.9 Neutrophils % 89.8 Lymphocytes % 4.0 Monocytes % 5.0 Eosinophils % 0.1 Basophils % 0.2 Nucleated RBC % 0.0 Absolute Neutrophils 10.67 H Absolute Lymphocytes 0.48 L Absolute Monocytes 0.59 Absolute Eosinophils 0.01 Absolute Basophils 0.02 ESR 19 Sodium 139 Potassium 3.9 Chloride 105 Carbon Dioxide 21.7 Anion Gap 12.3 H BUN 17 Creatinine 1.3 Est GFR (CKD-EPI 2020) 60.96 Glucose 219 H Calcium 8.9 Magnesium 1.9 Total Bilirubin 0.4 AST 21 ALT 44 Alkaline Phosphatase 94 Troponin I 10 12 Cancelled C-Reactive Protein 0.94 H Total Protein 7.0 Albumin 3.5 11/25/24 06:10 WBC 11.89 H RBC 4.12 L Hgb 13.8 Hct 39.8 L MCV 97 H MCH 33.5 H MCHC 34.7 RDW 14.6 H Plt Count 269 MPV 9.5 Immature Gran % 1.0 Neutrophils % 89.3 Lymphocytes % 4.0 Monocytes % 5.4 Eosinophils % 0.0 Basophils % 0.3 Nucleated RBC % 0.0 Absolute Neutrophils 10.62 H Absolute Lymphocytes 0.48 L Absolute Monocytes 0.64 Absolute Eosinophils 0.00 Absolute Basophils 0.04 ESR Sodium 139 Potassium 3.9 Chloride 105 Carbon Dioxide 22.5 Anion Gap 11.5 H BUN 16 Creatinine 1.4 H Est GFR (CKD-EPI 2020) 55.78 Glucose 218 H Calcium 9.1 Magnesium 2.0 Total Bilirubin 0.3 AST 18 ALT 40 Alkaline Phosphatase 85 Troponin I C-Reactive Protein Total Protein 6.8 Albumin 3.4 Time Spent Time Spent with Patient Time Spent(min): 50
[2024-11-25] MEDS: Dexamethasone 4 MG TAB 10 MG PO (18:11)
[2024-11-25] MEDS: Pantoprazole 40 MG VIAL IVP (18:13)
[2024-11-25] MEDS: Enoxaparin 40 MG/0.4 ML SYR SC (18:13)
[2024-11-25 19:50] VITALS: BP 144/86; PULSE 101; RESP 22; TEMP 36.1; O2SAT 99
[2024-11-25] MEDS: Insulin Glargine 300 UNITS/3 ML PEN 10 UNITS SC (20:34)
[2024-11-25] MEDS: Polyethylene Glycol 3350 17 GM PACKET PO (20:34)
[2024-11-25] MEDS: LORazepam 0.5 MG TAB PO (22:10)
[2024-11-26 06:53] LABS: Abs Immature Grans 0.21 10^3/uL (0.0-0.06); HCT 39.1 % (40.0-50.0); HGB 13.7 g/dL (13.5-17.5); Immature Grans % 2.0 %; MCH 33.8 pg (27.0-33.0); MCHC 35.0 % (32.0-36.0); MCV 97 fL (80-95); MPV 9.4 fL (8.0-11.0); Platelet Count 244 10^3/uL (130-400); RBC 4.05 10^6/uL (4.36-5.78); RDW 14.4 % (11.8-14.1); RDW-SD 50.5 fL; WBC 10.49 10^3/uL (4.4-10.8)
[2024-11-26 07:05] LABS: Anion Gap 10.5 mmol/L (3-11); BUN 25 mg/dL (7-18); CO2 23.5 mmol/L (21.0-32.0); Calcium 8.7 mg/dL (8.5-10.1); Chloride 106 mmol/L (98-107); Estimated GFR 74.50 (mL/min/1.73m2); Glucose 185 mg/dL (74-106); Potassium 4.3 mmol/L (3.5-5.1); Sodium 140 mmol/L (136-145)
[2024-11-26] MEDS: Dexamethasone 4 MG TAB 8 MG PO (07:44)
[2024-11-26 07:45] VITALS: BP 133/92; PULSE 88; RESP 20; TEMP 36.5; O2SAT 95
[2024-11-26] MEDS: Normal Saline Flush 10 ML SYR IVP (07:45)
--- NOTE | 2024-11-26 08:54 | PDOC.CMPRO ---
Social Determinants of Health Screening Social Determinants of health last assessed in clinic: 11/25/24 Will the Patient Participate in the Screening?: Yes Do you worry about having a steady place to live?: yes What is your living situation today?: I have housing today, but am worried about losing it Problems where you live: no known problems In the past 12 months, have you had to go without electric, gas, oil or water in your home?: no Has lack of transportation kept you from medical appointments or from doing things needed for daily living?: no Has anyone in your life made you feel unsafe or unsupported?: no How hard is it for you to pay for the very basics like food, housing, medical care, and heating? Would you say it is:: Not hard at all Do you want help finding or keeping work or a job?: I do not need or want help If for any reason you need help with day-to-day activities such as bathing, preparing meals, shopping, managing finances, etc., do you get the help you need?: I don?t need any help How often do you feel lonely or isolated from those around you?: Never Do you speak a language other than [place] at home?: No Does the patient want assistance with any of the above?: No Health Related Social Needs Health related social needs: housing instability, housed, with risk of homelessness (Z59.811)
--- NOTE | 2024-11-26 11:44 | DSE_ITS ---
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: Status: Acute (3) Radiculopathy, lumbar region: Status: Acute (4) Steroid-induced hyperglycemia: Status: Acute (5) Discharge planning issues: Status: Acute Discharge Plan Disposition Patient Disposition: Home Condition: Stable Discharge Details Reason For Visit: bowel incontinence Admit Date/Time: 11/24/24 22:32 Admit Provider: Jitendra Elena Attending Provider: Jitendra Elena [facility] Hospital Course: Past Medical History * Chronic Obstructive Pulmonary Disease * Chronic pain * 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 He reported onset of numbness in the left buttock and left testicle on Friday, for which his outpatient provider initiated a steroid burst. He described an episode where he felt the urge to pass stool, sat on the toilet, and only realized he had passed stool when hearing the splash, indicating loss of anal sensation. He denied new weakness and reported maintaining the ability to ambulate. Emergency Department Workup * CT Cervical Spine: Previous fusion at C6-7 * CT Chest: Right lower lobe cavitary lesion (18 mm) * CT Lumbar Spine: * 5 cm thick-walled paracystic structure * Multilevel mild disc disease * [id number] bilateral foraminal stenosis at L5-S1 Orthopedic spine consultation at [facility] recommended MRI; symptoms and timeline w ere considered atypical for cauda equina. Laboratory Results: * WBC: 11.88 * Anion gap: 12.3 (mild elevation) * Electrolytes: Within normal limits * Glucose: 219 (on dexamethasone) * CRP: 0.94 The patient was admitted to the medical-surgical floor for further evaluation pending MRI. 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 Small right paracentral disc protrusion at T7-8. * Lumbar Spine: Central-left paracentral disc herniation at L5-S1 extending into the floor of the exiting left neural foramen, with mild left-sided foraminal stenosis. Consultation: * [facility] Spine reviewed findings?no emergent intervention recommended. * [facility] Spine ARTIST MANNEQUIN COLORING Mekhi will arrange outpatient follow-up. * No evidence of metastatic disease on imaging. Hospital Course The patient remained neurologically stable during admission. No progression of weakness or new deficits noted. Pain and glycemic control managed during hospitalization. Discharge Plan * Medications: * Dexamethasone oral taper * Lantus insulin * Short course of Protonix * Oncology Plan: Continue dexamethasone as per [facility] oncology (next dose Friday) * Follow-Up: [facility] Spine clinic to contact patient for outpatient evaluation Condition on Discharge: Stable, ambulatory, tolerating oral intake. Home Meds and New Rx's Prescriptions: New dexamethasone 4 mg tablet 8 mg PO DAILY Qty: 5 0RF Rx Instructions: Take 8 mg on Friday, 8 mg on Friday, 4 mg on Friday- then as per [facility] dosing on Friday insulin glargine [Lantus U-100 Insulin] 100 unit/mL solution 5 unit subcut QPM Qty: 10 0RF Rx Instructions: While taking dexamethasone pantoprazole [Protonix] 40 mg tablet,delayed release (DR/EC) 40 mg PO DAILY Qty: 7 0RF Continued tramadol 50 mg tablet 50 mg PO Q6H PRN Patient Comments: Pt states this has been prescribed for him for pain. PCP - [facility]. Pt aware of conflict with another medication he is taking, doing well with both meds. naproxen sodium [Aleve] 220 mg tablet 220 mg PO BID PRN lorazepam 0.5 mg tablet 0.5 mg PO QHS PRN nortriptyline 50 mg capsule 100 mg PO DAILY albuterol sulfate [Ventolin HFA] 90 mcg/actuation HFA aerosol inhaler 2 puff inhalation Q4H PRN (Reason: Shortness Of Breath) ergocalciferol (vitamin D2) 1,250 mcg (50,000 unit) capsule 1,250 mcg PO QWEEK acetaminophen [Tylenol Extra Strength] 500 mg tablet 500 mg PO Q6H PRN Discharge Instructions Stand Alone Forms: Nursing Discharge Form Referrals: Srinivas Johnston [ [facility] STAFF PHYSICIAN, Oncology] Referral Note: Inpatient hospitalization 11/24- 11/25 - Margareth Odell [Primary Care Provider, Medicine] Referral Note: Call for Follow-up with 7 days of discharge Activity:: Activity as Tolerated Equipment/Supplies:: No Equipment Needed Diet:: As Tolerated Discharge Orders Discharge Orders: Discharge Order (Routine); Ordered 11/26/24 Ordered By: Alyse Clark DS: Summary Time Spent with Patient providing and/or coordinating discharge services: Greater than 30 minutes Status at Discharge Functional status at discharge: independent ambulation Overall status at discharge: patient is back to baseline Mental Status: mental status grossly normal Speech and Movement: speech and movement normal Mood: congruent mood Affect: normal affect Quality:SDOH Health Related Social Needs: Health related social needs risk of homeless Exam Narrative Exam Narrative: General: Obese man semi fowlers in hospital bed in no acute distress HEENT: Normocephalic, atraumatic CV: RRR Resp: CTAB Abd: protruberant, nontender, +NBS. Suprapubic urostomy site c/d/i. deferred to ED exam MSK: voluntary motion x4 Neuro: awake, alert, CN II-XII intact Psych Mental Status: mental status grossly normal Speech and Movement: speech and movement normal Mood: congruent mood Affect: normal affect DS: Data Vitals/I&O Vitals and I&O: Vital Signs Temperature 36.5 C 11/26/24 07:45 Temperature Source Tympanic 11/26/24 07:45 Pulse 88 11/26/24 07:45 Pulse Rhythm Regular 11/24/24 23:41 Respiratory Rate 20 11/26/24 07:45 Respiratory Effort Normal 11/24/24 23:41 Respiratory Depth Normal 11/24/24 23:41 Respiratory Pattern Normal 11/24/24 23:41 Blood Pressure 133/92 H 11/26/24 07:45 Blood Pressure Mean 105 11/26/24 07:45 Pulse Oximetry 95 11/26/24 07:45 Oxygen Delivery Method Room Air 11/26/24 07:45 Oxygen Flow Rate 0 11/26/24 07:45 Pain Level 3 11/26/24 09:18 Intake & Output 11/25/24 11/25/24 11/26/24 11:59 23:59 11:59 Intake Total 410 / 410 1150 / 1150 Balance 410 / 410 1150 / 1150 Intake: IV Oral 400 / 400 1140 / 1140 Other: Urine Color Yellow Pale Pale Urine Appearance Cloudy Clear Comment Pt voids to urostomy bag. Data Completed and Pending Labs on day of discharge: Labs from last 24 hours 11/26/24 06:26 WBC 10.49 RBC 4.05 L Hgb 13.7 Hct 39.1 L MCV 97 H MCH 33.8 H MCHC 35.0 RDW 14.4 H Plt Count 244 MPV 9.4 Immature Gran % 2.0 Neutrophils % 91.1 Lymphocytes % 3.5 Monocytes % 3.2 Eosinophils % 0.0 Basophils % 0.2 Nucleated RBC % 0.0 Absolute Neutrophils 9.55 H Absolute Lymphocytes 0.37 L Absolute Monocytes 0.34 Absolute Eosinophils 0.00 Absolute Basophils 0.02 Sodium 140 Potassium 4.3 Chloride 106 Carbon Dioxide 23.5 Anion Gap 10.5 BUN 25 H Creatinine 1.1 Est GFR (CKD-EPI 2020) 74.50 Glucose 185 H Calcium 8.7 PFSH All Active Problems Discharge planning issues (Acute) Metastasis from bladder cancer (Acute) ACP (advance care planning) (Acute) Palliative care encounter (Acute) Steroid-induced hyperglycemia (Acute) 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 History of knee surgery History of fusion of cervical spine Social History Smoking/Tobacco Use Status: Current every day Tobacco Type: pipe Smoking risk assessment performed?: Yes Alcohol Intake: current Alcohol Intake frequency: a few times a week Alcohol type: beer and hard liquor Substance use type: does not use Housing: house Current gender identity: male Do you feel safe at home: Yes (CASSANDRA/lack of privacy.) Do you feel safe in your relationship?: Yes Time Spent with Patient Time Spent with Patient: 45-69 minutes Time was spent: preparing to see the patient(eg.review tests), ordering medications,tests, procedures, referring, communicating with other health cardiac care nurse, indepentently interpreting results, counseling the patient and care coordination
--- NOTE | 2024-11-26 11:57 | PDOC.CMDIS ---
Date of service: 11/26/24 Time of Service: 12:41 LACE Index Scoring Tool Questions: Length of Stay (in days): 2 Was the patient admitted via the E.D.?: Yes Comorbidities: Metastatic Solid Tumor E.D. Visits: 1 Answers: Total Score: 11 Risk of Readmission: High Risk Care Management Discharge Plan Reason for Hospitalization: bowel incontinence Discharge Plan: CM contacted the [place]; this patient is not service connected nor has establish care through one of the [place] PCP offices therefore receives no [place] services. He will have Urogram today. Jef will be discharged home today with no new services indicated. It is recommended he follow up with his community providers and continue per his plan of care. He will transport via private vehicle by his . Patient/Family Education Needs: review of discharge instructions, activity, limitations, and plan of care. Discuss Ask me three SDOH Health Related Social Needs: Health related social needs risk of homeless
--- NOTE | 2024-12-02 12:26 | W.NUTRFU ---
Date of service: 12/02/24 Time of Service: 12:26 Nutrition Note NOTE: today left 2nd message at Evans's phone number asking him to call me back for quick nutrition follow up after discharge - hoping to review how basal insulin is going or if any concerns/?'s. Today will be my last call trying to follow up Will remain available for outpatient nutrition counseling Time Spent in Nutritional Counseling and Treatment: 2 min
== END 2024-11-26 12:45 | disposition home or self-care (01) ==
LOC: ER 23:18 → MS 23:39
PROVIDERS: Nurse Practitioner Acute Care; Admitting Provider Family Medicine; Emergency Provider Emergency Medicine; PCP Family Medicine; Responsible Provider Nurse Practitioner Family; Visit Provider Family Medicine
DX: R20.0 Anesthesia of skin (principal); M51.17 Intervertebral disc disorders with radiculopathy, lumbosacral region; G95.0 Syringomyelia and syringobulbia; C67.9 Malignant neoplasm of bladder, unspecified; C78.00 Secondary malignant neoplasm of unspecified lung; R73.9 Hyperglycemia, unspecified; R15.9 Full incontinence of feces; G47.33 Obstructive sleep apnea (adult) (pediatric); T38.0X5A Adverse effect of glucocorticoids and synthetic analogues, initial encounter; J44.9 Chronic obstructive pulmonary disease, unspecified; G89.29 Other chronic pain; C79.89 Secondary malignant neoplasm of other specified sites; Z85.51 Personal history of malignant neoplasm of bladder; Z96.0 Presence of urogenital implants; Z93.6 Other artificial openings of urinary tract status; Z98.1 Arthrodesis status; F17.290 Nicotine dependence, other tobacco product, uncomplicated
CPT/HCPCS: 00123; 36415; 72158; 80048; 80053; 85652; 96372; 96374; 96375; 99285; J1650; 72129; 72132; 72157; 83735; 84484; 85025; 86140; 99222; 99233; 99239; G0378; J1100; J1815; J2470; J3490; J8540

== ENCOUNTER 2024-11-26 01:11 | Outpatient (CLI) | payer OTHER, SELFPAY ==
--- NOTE | 2024-11-26 | DI.CT_ITS ---
Exam(s) CT ABDOMEN PELVIS WO/W EXAM: CT ABDOMEN PELVIS WO/W CLINICAL HISTORY: METS UROTHELIAL CA, C79.10, HEMATURIA. TECHNIQUE: Imaging Protocol: Axial computed tomography images with coronal and sagittal reformatted images were created and reviewed. CT urogram technique. CONTRAST MATERIAL: Intravenous: Omnipaque-350 lb 5cc Oral: None COMPARISON: CT CT CHEST W from 06/04/2024 FINDINGS: VISUALIZED LUNG BASES: No nodules nor pleural effusions evident. ABDOMEN: There is no ascites. LIVER: Liver is hypodense implying steatosis. There are no discrete focal hepatic lesions. No dilated intrahepatic ducts. GALLBLADDER/BILIARY: The gallbladder is again noted be surgically absent. CBD is not dilated. PANCREAS: No evidence of pancreatic mass nor dilatation of the pancreatic duct. SPLEEN: Spleen is not enlarged. No obvious intrasplenic lesions. Splenic and portal veins are patent. ADRENALS: There are no significant adrenal masses. KIDNEYS:Both kidneys exhibit normal size. There are no renal cysts nor solid renal masses. No calculi nor hydronephrosis. The ureters are not dilated. This patient who has had prior cystectomy and ureteral diversion to a right ileal conduit an ostomy. The left ureter crosses to the right anterior to the aortic bifurcation. There are no filling defects within the left ureter and left ureter size is satisfactory. Part of the nondilated right ureter is not opacified but this is probably related to peristalsis of the ureter. There is no obvious mass at this level. The anastomosis of the left ureter to the ileal conduit is widely open. The anastomosis of the nondilated right ureter is slightly narrowed. There is no extravasation of contrast at the anastomosis site to the ileal conduit. The ileal conduit diameter is normal. ABDOMINAL AORTA: Abdominal aorta is not enlarged. LYMPH NODES:There is no retroperitoneal nor paraaortic adenopathy. ABDOMINAL WALL: Right-sided ileal conduit traverses a surgically created defect in the right rectus abdominus muscle. There is no significant abnormality at this level. No abnormal fluid collection. GI: There is no evidence of bowel obstruction, free air, nor abscess. There is abundant fecal material noted throughout the colon. PELVIS: GI: No evidence of appendicitis.No evidence of sigmoid diverticulitis. LYMPH NODES: There is no intrapelvic nor inguinal adenopathy. REPRODUCTIVE: Prostate is surgically absent. The recently described abnormal density and just medial to the left hip acetabulum at the level of the left obturator internus muscle is unchanged from lumbar spine CT scan of 11/24/2024 and measures 4.9 cm AP by 3 cm wide by 4.3 cm craniocaudal. This exhibits a thick 5 mm thickness wall. It is internally hypodense with average density unit 18 HU (Fluid). There is no bone destruction of the adjacent left acetabulum and no significant osseous lesions in the field of view. Similar findings not seen on the opposite-right side. URINARY BLADDER: Surgically absent OSSEOUS: No fractures and no significant osseous lesions. IMPRESSION: 1. There is evidence of cystectomy and prostatectomy and ureteral diversion to a right ileal conduit which leads to a right-sided ostomy bag. There is no hydronephrosis nor hydroureter and no significant focal findings in the kidneys. There is also no obstruction of the ileal conduit. 2. There is abundant fecal material in the colon. No evidence of bowel obstruction. 3. There is a peripherally thick and internal fluid density lesion in the left pelvic sidewall just medial to the left hip acetabulum in the region of the left obturator internus muscle. This measures 4.9 cm AP x 3 cm wide by 4.3 cm craniocaudal. May considerations are for metastatic lesion/lymphadenopathy or possibly lymphocele. RADIATION DOSE DELIVERED: 2,767.44mGy.cm Total DLP DATA REPOSITORY: All CT scans at this facility are submitted to the National Radiology Data Registry (NRDR) Dose Index Registry (DIR) with the [employer] (ACR). RADIATION OPTIMIZATION: All CT scans at this facility use at least one of these dose optimization techniques: automated exposure control; mA and/or kV adjustment per patient size (includes targeted exams where dose is matched to clinical indication); or iterative reconstruction.
[2024-11-26] MEDS: Normal Saline Flush 10 ML SYR IVP (13:31)
[2024-11-26] MEDS: Normal Saline - Diluent 50 ML VIAL IJ ×2 (13:31→13:32)
[2024-11-26] MEDS: Omnipaque 350 MG/ML 500 ML BTL-Imaging package IJ (13:32)
== END 2024-11-26 01:31 ==
LOC: DI 01:11
PROVIDERS: PCP Family Medicine
DX: C79.10 Secondary malignant neoplasm of unspecified urinary organs (principal)
CPT/HCPCS: 74178

== ENCOUNTER 2024-11-30 02:32 | Outpatient (RCR) | payer OTHER, SELFPAY ==
[2024-11-30 11:03] LABS: Abs Immature Grans 0.39 10^3/uL (0.0-0.06); HCT 41.6 % (40.0-50.0); HGB 14.4 g/dL (13.5-17.5); Immature Grans % 3.4 %; MCH 33.0 pg (27.0-33.0); MCHC 34.6 % (32.0-36.0); MCV 95 fL (80-95); MPV 8.9 fL (8.0-11.0); Platelet Count 283 10^3/uL (130-400); RBC 4.37 10^6/uL (4.36-5.78); RDW 14.5 % (11.8-14.1); RDW-SD 50.1 fL; WBC 11.32 10^3/uL (4.4-10.8)
[2024-11-30] MEDS: Normal Saline Flush 10 ML SYR IVP (11:04)
[2024-11-30 11:27] LABS: ALT 44 U/L (16-63); AST 15 U/L (15-37); Albumin 3.4 g/dL (3.4-5.0); Alkaline Phosphatase 105 U/L (46-116); Anion Gap 10.1 mmol/L (3-11); BUN 21 mg/dL (7-18); Bilirubin, Total 0.4 mg/dL (0.2-1.0); CO2 23.9 mmol/L (21.0-32.0); Calcium 8.1 mg/dL (8.5-10.1); Chloride 103 mmol/L (98-107); Estimated GFR 55.78 (mL/min/1.73m2); Glucose 178 mg/dL (74-106); Potassium 3.7 mmol/L (3.5-5.1); Sodium 137 mmol/L (136-145); TSH 1.22 uIU/mL (0.36-3.74); Total Protein 6.8 g/dL (6.4-8.2)
== END 2024-12-05 23:59 | disposition home or self-care (01) ==
LOC: INF 02:32
PROVIDERS: PCP Family Medicine; Visit Provider Internal Medicine
DX: C79.10 Secondary malignant neoplasm of unspecified urinary organs (principal); R94.6 Abnormal results of thyroid function studies; Z45.2 Encounter for adjustment and management of vascular access device
CPT/HCPCS: 36591; 80053; 84439; 84443; 85025

== ENCOUNTER 2024-12-07 09:17 | Outpatient (RCR) | payer OTHER, SELFPAY ==
[2024-12-07 13:21] LABS: Abs Immature Grans 0.08 10^3/uL (0.0-0.06); HCT 40.8 % (40.0-50.0); HGB 13.6 g/dL (13.5-17.5); Immature Grans % 1.0 %; MCH 32.3 pg (27.0-33.0); MCHC 33.3 % (32.0-36.0); MCV 97 fL (80-95); MPV 9.5 fL (8.0-11.0); Platelet Count 200 10^3/uL (130-400); RBC 4.21 10^6/uL (4.36-5.78); RDW 14.5 % (11.8-14.1); RDW-SD 51.8 fL; WBC 8.22 10^3/uL (4.4-10.8)
[2024-12-07 14:14] LABS: ALT 55 U/L (16-63); AST 23 U/L (15-37); Albumin 3.2 g/dL (3.4-5.0); Alkaline Phosphatase 107 U/L (46-116); Anion Gap 8.6 mmol/L (3-11); BUN 15 mg/dL (7-18); Bilirubin, Total 0.4 mg/dL (0.2-1.0); CO2 25.4 mmol/L (21.0-32.0); Calcium 8.7 mg/dL (8.5-10.1); Chloride 104 mmol/L (98-107); Estimated GFR 60.96 (mL/min/1.73m2); Glucose 152 mg/dL (74-106); Potassium 3.9 mmol/L (3.5-5.1); Sodium 138 mmol/L (136-145); TSH 3.73 uIU/mL (0.36-3.74); Total Protein 7.0 g/dL (6.4-8.2)
== END 2025-01-04 23:59 | disposition home or self-care (01) ==
LOC: INF 09:17
PROVIDERS: PCP Family Medicine; Visit Provider Internal Medicine
DX: C79.10 Secondary malignant neoplasm of unspecified urinary organs (principal); R94.6 Abnormal results of thyroid function studies
CPT/HCPCS: 36415; 80053; 84439; 84443; 85025

== ENCOUNTER 2025-01-04 02:34 | Outpatient (RCR) | payer OTHER, SELFPAY ==
[2024-12-07] MEDS: Normal Saline Flush 10 ML SYR IVP (14:27)
[2025-01-04] MEDS: Normal Saline Flush 10 ML SYR IVP (10:14)
[2025-01-04 10:32] LABS: Abs Immature Grans 0.08 10^3/uL (0.0-0.06); HCT 39.2 % (40.0-50.0); HGB 13.4 g/dL (13.5-17.5); Immature Grans % 1.0 %; MCH 32.4 pg (27.0-33.0); MCHC 34.2 % (32.0-36.0); MCV 95 fL (80-95); MPV 9.1 fL (8.0-11.0); Platelet Count 281 10^3/uL (130-400); RBC 4.13 10^6/uL (4.36-5.78); RDW 14.3 % (11.8-14.1); RDW-SD 49.7 fL; WBC 8.20 10^3/uL (4.4-10.8)
[2025-01-04 11:07] LABS: ALT 33 U/L (16-63); AST 20 U/L (15-37); Albumin 3.5 g/dL (3.4-5.0); Alkaline Phosphatase 107 U/L (46-116); Anion Gap 11.0 mmol/L (3-11); BUN 14 mg/dL (7-18); Bilirubin, Total 0.5 mg/dL (0.2-1.0); CO2 24.0 mmol/L (21.0-32.0); Calcium 8.5 mg/dL (8.5-10.1); Chloride 103 mmol/L (98-107); Glucose 173 mg/dL (74-106); Potassium 4.0 mmol/L (3.5-5.1); Sodium 138 mmol/L (136-145); TSH 2.46 uIU/mL (0.36-3.74); Total Protein 7.2 g/dL (6.4-8.2)
== END 2025-01-04 23:59 | disposition home or self-care (01) ==
LOC: INF 02:34
PROVIDERS: PCP Family Medicine; Visit Provider Internal Medicine
DX: R94.6 Abnormal results of thyroid function studies (principal); C79.10 Secondary malignant neoplasm of unspecified urinary organs; Z45.2 Encounter for adjustment and management of vascular access device
CPT/HCPCS: 36591; 80053; 84439; 84443; 85025

== ENCOUNTER 2025-02-01 01:51 | Outpatient (RCR) | payer OTHER, SELFPAY ==
[2025-01-11] MEDS: Normal Saline Flush 10 ML SYR IVP (12:17)
[2025-01-11 12:36] LABS: Abs Immature Grans 0.08 10^3/uL (0.0-0.06); HCT 41.4 % (40.0-50.0); HGB 13.9 g/dL (13.5-17.5); Immature Grans % 0.9 %; MCH 32.0 pg (27.0-33.0); MCHC 33.6 % (32.0-36.0); MCV 95 fL (80-95); MPV 9.0 fL (8.0-11.0); Platelet Count 248 10^3/uL (130-400); RBC 4.34 10^6/uL (4.36-5.78); RDW 14.6 % (11.8-14.1); RDW-SD 50.7 fL; WBC 8.54 10^3/uL (4.4-10.8)
[2025-01-11 13:11] LABS: ALT 39 U/L (16-63); AST 23 U/L (15-37); Albumin 3.6 g/dL (3.4-5.0); Alkaline Phosphatase 107 U/L (46-116); Anion Gap 7.1 mmol/L (3-11); BUN 15 mg/dL (7-18); Bilirubin, Total 0.5 mg/dL (0.2-1.0); CO2 26.9 mmol/L (21.0-32.0); Calcium 8.7 mg/dL (8.5-10.1); Chloride 105 mmol/L (98-107); Glucose 171 mg/dL (74-106); Potassium 4.1 mmol/L (3.5-5.1); Sodium 139 mmol/L (136-145); TSH 2.35 uIU/mL (0.36-3.74); Total Protein 7.2 g/dL (6.4-8.2)
[2025-01-25] MEDS: Normal Saline Flush 10 ML SYR IVP (09:33)
[2025-01-25 09:37] LABS: Abs Immature Grans 0.06 10^3/uL (0.0-0.06); HCT 38.7 % (40.0-50.0); HGB 13.3 g/dL (13.5-17.5); Immature Grans % 0.7 %; MCH 32.6 pg (27.0-33.0); MCHC 34.4 % (32.0-36.0); MCV 95 fL (80-95); MPV 9.2 fL (8.0-11.0); Platelet Count 284 10^3/uL (130-400); RBC 4.08 10^6/uL (4.36-5.78); RDW 14.8 % (11.8-14.1); RDW-SD 50.9 fL; WBC 8.84 10^3/uL (4.4-10.8)
[2025-01-25 10:04] LABS: ALT 40 U/L (16-63); AST 30 U/L (15-37); Albumin 3.5 g/dL (3.4-5.0); Alkaline Phosphatase 97 U/L (46-116); Anion Gap 10.7 mmol/L (3-11); BUN 16 mg/dL (7-18); Bilirubin, Total 0.5 mg/dL (0.2-1.0); CO2 24.3 mmol/L (21.0-32.0); Calcium 8.6 mg/dL (8.5-10.1); Chloride 103 mmol/L (98-107); Glucose 156 mg/dL (74-106); Potassium 3.9 mmol/L (3.5-5.1); Sodium 138 mmol/L (136-145); TSH 3.01 uIU/mL (0.36-3.74); Total Protein 7.2 g/dL (6.4-8.2)
[2025-02-01] MEDS: Normal Saline Flush 10 ML SYR IVP (13:35)
[2025-02-01 13:43] LABS: Abs Immature Grans 0.10 10^3/uL (0.0-0.06); HCT 38.6 % (40.0-50.0); HGB 13.4 g/dL (13.5-17.5); Immature Grans % 1.4 %; MCH 33.1 pg (27.0-33.0); MCHC 34.7 % (32.0-36.0); MCV 95 fL (80-95); MPV 9.0 fL (8.0-11.0); Platelet Count 253 10^3/uL (130-400); RBC 4.05 10^6/uL (4.36-5.78); RDW 14.8 % (11.8-14.1); RDW-SD 51.9 fL; WBC 7.26 10^3/uL (4.4-10.8)
[2025-02-01 14:06] LABS: ALT 38 U/L (16-63); AST 25 U/L (15-37); Albumin 3.2 g/dL (3.4-5.0); Alkaline Phosphatase 115 U/L (46-116); Anion Gap 11.6 mmol/L (3-11); BUN 13 mg/dL (7-18); Bilirubin, Total 0.4 mg/dL (0.2-1.0); CO2 23.4 mmol/L (21.0-32.0); Calcium 8.7 mg/dL (8.5-10.1); Chloride 105 mmol/L (98-107); Glucose 181 mg/dL (74-106); Potassium 4.1 mmol/L (3.5-5.1); Sodium 140 mmol/L (136-145); TSH 2.50 uIU/mL (0.36-3.74); Total Protein 7.1 g/dL (6.4-8.2)
== END 2025-02-04 23:59 | disposition home or self-care (01) ==
LOC: INF 01:51
PROVIDERS: PCP Family Medicine; Visit Provider Internal Medicine
DX: R94.6 Abnormal results of thyroid function studies (principal); C79.10 Secondary malignant neoplasm of unspecified urinary organs; Z45.2 Encounter for adjustment and management of vascular access device
CPT/HCPCS: 36415; 36591; 80053; 96523; 84439; 84443; 85025

== ENCOUNTER 2025-02-22 03:12 | Outpatient (RCR) | payer OTHER, SELFPAY ==
[2025-02-15] MEDS: Normal Saline Flush 10 ML SYR IVP (11:06)
[2025-02-15 11:17] LABS: Abs Immature Grans 0.04 10^3/uL (0.0-0.06); HCT 37.4 % (40.0-50.0); HGB 13.1 g/dL (13.5-17.5); Immature Grans % 0.5 %; MCH 33.6 pg (27.0-33.0); MCHC 35.0 % (32.0-36.0); MCV 96 fL (80-95); MPV 9.2 fL (8.0-11.0); Platelet Count 227 10^3/uL (130-400); RBC 3.90 10^6/uL (4.36-5.78); RDW 15.1 % (11.8-14.1); RDW-SD 53.0 fL; WBC 7.72 10^3/uL (4.4-10.8)
[2025-02-15 11:50] LABS: ALT 41 U/L (16-63); AST 26 U/L (15-37); Albumin 3.4 g/dL (3.4-5.0); Alkaline Phosphatase 98 U/L (46-116); Anion Gap 9.3 mmol/L (3-11); BUN 15 mg/dL (7-18); Bilirubin, Total 0.5 mg/dL (0.2-1.0); CO2 24.7 mmol/L (21.0-32.0); Calcium 8.3 mg/dL (8.5-10.1); Chloride 102 mmol/L (98-107); Estimated GFR 60.96 (mL/min/1.73m2); Glucose 144 mg/dL (74-106); Potassium 3.9 mmol/L (3.5-5.1); Sodium 136 mmol/L (136-145); TSH 2.17 uIU/mL (0.36-3.74); Total Protein 7.3 g/dL (6.4-8.2)
== END 2025-03-06 23:59 | disposition home or self-care (01) ==
LOC: INF 03:12
PROVIDERS: PCP Family Medicine; Visit Provider Internal Medicine
DX: Z45.2 Encounter for adjustment and management of vascular access device (principal); C79.10 Secondary malignant neoplasm of unspecified urinary organs; R94.6 Abnormal results of thyroid function studies
CPT/HCPCS: 36591; 80053; 84439; 84443; 85025

== ENCOUNTER 2025-04-05 00:07 | Outpatient (RCR) | payer MEDICARE, SELFPAY ==
[2025-03-08 11:00] LABS: Abs Immature Grans 0.04 10^3/uL (0.0-0.06); HCT 36.1 % (40.0-50.0); HGB 12.2 g/dL (13.5-17.5); Immature Grans % 0.6 %; MCH 32.1 pg (27.0-33.0); MCHC 33.8 % (32.0-36.0); MCV 95 fL (80-95); MPV 8.5 fL (8.0-11.0); Platelet Count 265 10^3/uL (130-400); RBC 3.80 10^6/uL (4.36-5.78); RDW 14.7 % (11.8-14.1); RDW-SD 51.1 fL; WBC 6.89 10^3/uL (4.4-10.8)
[2025-03-08 11:22] LABS: ALT 19 U/L (10-49); AST 17 U/L (<34); Albumin 4.4 g/dL (3.2-5.0); Alkaline Phosphatase 108 U/L (46-116); Anion Gap 8.7 mmol/L (3-11); BUN 17 mg/dL (9-23); Bilirubin, Total 0.30 mg/dL (0.2-1.2); CO2 24.3 mmol/L (20.0-31.0); Calcium 8.9 mg/dL (8.3-10.6); Chloride 105 mmol/L (98-107); Glucose 135 mg/dL (74-106); Potassium 3.9 mmol/L (3.5-5.1); Sodium 138 mmol/L (136-145); Total Protein 7.3 g/dL (5.7-8.2)
[2025-03-08 11:23] LABS: TSH 3.03 uIU/mL (0.55-4.78)
[2025-03-08] MEDS: Normal Saline Flush 10 ML SYR IVP (13:01)
[2025-03-08 13:28] LABS: Vitamin D 25 Total 25 ng/mL (30-100)
[2025-03-08 15:32] LABS: Hemoglobin A1C 6.5 % (<5.7)
[2025-03-15 10:53] LABS: Abs Immature Grans 0.06 10^3/uL (0.0-0.06); HCT 38.4 % (40.0-50.0); HGB 12.9 g/dL (13.5-17.5); Immature Grans % 0.6 %; MCH 32.6 pg (27.0-33.0); MCHC 33.6 % (32.0-36.0); MCV 97 fL (80-95); MPV 8.8 fL (8.0-11.0); Platelet Count 289 10^3/uL (130-400); RBC 3.96 10^6/uL (4.36-5.78); RDW 15.2 % (11.8-14.1); RDW-SD 53.8 fL; WBC 9.35 10^3/uL (4.4-10.8)
[2025-03-15 11:17] LABS: ALT 20 U/L (10-49); AST 16 U/L (<34); Albumin 4.1 g/dL (3.2-5.0); Alkaline Phosphatase 114 U/L (46-116); Anion Gap 8.3 mmol/L (3-11); BUN 20 mg/dL (9-23); Bilirubin, Total 0.3 mg/dL (0.2-1.2); CO2 25.7 mmol/L (20.0-31.0); Calcium 8.9 mg/dL (8.3-10.6); Chloride 107 mmol/L (98-107); Glucose 151 mg/dL (74-106); Potassium 3.7 mmol/L (3.5-5.1); Sodium 141 mmol/L (136-145); Total Protein 7.0 g/dL (5.7-8.2)
[2025-03-15 11:18] LABS: TSH 1.73 uIU/mL (0.55-4.78)
[2025-03-15] MEDS: Normal Saline Flush 10 ML SYR IVP (13:37)
[2025-03-29 10:56] LABS: Abs Immature Grans 0.05 10^3/uL (0.0-0.06); HCT 36.6 % (40.0-50.0); HGB 12.1 g/dL (13.5-17.5); Immature Grans % 0.6 %; MCH 31.7 pg (27.0-33.0); MCHC 33.1 % (32.0-36.0); MCV 96 fL (80-95); MPV 9.5 fL (8.0-11.0); Platelet Count 204 10^3/uL (130-400); RBC 3.82 10^6/uL (4.36-5.78); RDW 15.5 % (11.8-14.1); RDW-SD 53.9 fL; WBC 7.86 10^3/uL (4.4-10.8)
[2025-03-29 11:13] LABS: ALT 27 U/L (10-49); AST 17 U/L (<34); Albumin 4.1 g/dL (3.2-5.0); Alkaline Phosphatase 110 U/L (46-116); Anion Gap 6.3 mmol/L (3-11); BUN 17 mg/dL (9-23); Bilirubin, Total 0.4 mg/dL (0.2-1.2); CO2 25.7 mmol/L (20.0-31.0); Calcium 8.6 mg/dL (8.3-10.6); Chloride 106 mmol/L (98-107); Glucose 152 mg/dL (74-106); Potassium 4.0 mmol/L (3.5-5.1); Sodium 138 mmol/L (136-145); Total Protein 7.0 g/dL (5.7-8.2)
[2025-03-29 11:17] LABS: TSH 2.06 uIU/mL (0.55-4.78)
[2025-03-29] MEDS: Normal Saline Flush 10 ML SYR IVP (11:55)
== END 2025-04-06 23:59 | disposition home or self-care (01) ==
LOC: INF 00:07
PROVIDERS: PCP Family Medicine; Visit Provider Internal Medicine
DX: C79.10 Secondary malignant neoplasm of unspecified urinary organs (principal); R94.6 Abnormal results of thyroid function studies; R73.03 Prediabetes; E55.9 Vitamin D deficiency, unspecified; Z45.2 Encounter for adjustment and management of vascular access device
CPT/HCPCS: 36591; 80053; 82306; 83036; 84439; 84443; 85025